=== PATIENT | male | born 1935 | race Caucasian/White ===

== ENCOUNTER 2017-01-15 08:14 | Emergency (ER) | payer MEDICARE, BC ==
[2017-01-15] MEDS ORDERED: Sodium Chloride 0.9% 10 ML Syringe FLUSH PRN (08:20)
--- NOTE | 2017-01-15 09:10 | EDM.PDOC ---
ED HPI RENAL/ - General Chief Complaint: Abdominal Pain Stated Complaint: [facility] Time Seen by Provider: 01/15/17 08:20 Source of Information: Reports: Patient, EMS History Limitations: Reports: No limitations - History of Present Illness INITIAL COMMENTS - FREE TEXT/NARRATIVE: The patient presents with left flank pain. He says this started early this morning and it went away for a little while and came back before arrival. He has no fever, chills, cough, congestion, runny nose, chest pain, shortness of breath, abdominal pain, nausea and vomiting. He has no dysuria or hematuria. Timing/Duration: Reports: Hour(s): Location: Reports: flank (Left) Quality: Reports: stabbing Severity: moderate Associated Symptoms: Reports: no other symptoms - Related Data Allergies/ADRs: Allergies Allergy/AdvReac Type Severity Reaction Status Date / Time No Known Allergies Allergy Verified 01/15/17 08:24 Home Meds: Home Meds Allopurinol [Zyloprim] 100 mg PO BEDTIME 07/12/14 [History] Aspirin [Adult Low Dose Aspirin EC] 81 tab PO DAILY 07/12/14 [History] Cyanocobalamin (Vitamin B12) [Vitamin B12] 1,000 mg PO DAILY 07/12/14 [History] Furosemide [Lasix] 80 mg PO DAILY 07/12/14 [History] Lisinopril 40 mg PO DAILY 07/12/14 [History] Multivitamin [Multivitamins] 1 cap PO DAILY 07/12/14 [History] Simvastatin [Zocor] 40 mg PO BEDTIME 07/12/14 [History] Tamsulosin [Flomax] 0.4 mg PO DAILY 07/12/14 [History] Acetaminophen 500 mg PO Q6H PRN 08/03/16 [History] Carvedilol [Coreg] 6.25 mg PO BID 08/03/16 [History] Cholecalciferol (Vitamin D3) [Vitamin D3] 2,000 units PO DAILY 08/03/16 [History ] Digoxin 125 mcg PO MOWEFR 08/03/16 [History] Finasteride 5 mg PO DAILY 08/03/16 [History] Glucosamine [Glucosamine Sulfate] 500 mg PO DAILY 08/03/16 [History] Lutein/Minerals/Vit A,C & E [Ocuvite] 1 tab PO DAILY 08/03/16 [History] Nitroglycerin [Nitrostat] 0.4 mg SL Q5M PRN 08/03/16 [History] Furosemide 40 mg PO PCDINNER 01/15/17 [History] Past Medical History HEENT History: Reports: Hard of hearing Cardiovascular History: Reports: Automatic implantable cardioverter defibrillators, Bypass, High cholesterol, Hypertension, Pacemaker Other Cardiovascular History: quad bypass 2002 Respiratory History: Reports: Sleep apnea Other Respiratory History: does not wear a CPAP - Past Surgical History GI Surgical History: Reports: Appendectomy Musculoskeletal Surgical History: Reports: Knee replacement, Shoulder surgery Social & Family History - Family History Cardiac: Reports: [place] Oncologic: Reports: Breast - Tobacco Use Smoking Status *Q: Never Smoker Second Hand Smoke Exposure: No - Caffeine Use Caffeine Use: Reports: Coffee - Alcohol Use Days Per Week of Alcohol Use: 0 - Recreational Drug Use Recreational Drug Use: No ED ROS GENERAL - Review of Systems Review Of Systems: See Below Constitutional: Reports: no symptoms HEENT: Reports: No symptoms Respiratory: Reports: no symptoms Cardiovascular: Reports: No symptoms Endocrine: Reports: no symptoms GI/Abdominal: Reports: No symptoms : Reports: flank pain (Left) Musculoskeletal: Reports: no symptoms Skin: Reports: no symptoms ED EXAM, RENAL/ - Physical Exam Exam: See Below Exam Limited By: No limitations General Appearance: alert, no apparent distress Ears: normal external exam Nose: normal inspection Head: atraumatic, normocephalic Neck: normal inspection Respiratory/Chest: no respiratory distress, lungs clear, normal breath sounds Cardiovascular: regular rate, rhythm, no edema, no murmur GI/Abdominal: soft, non tender, no organomegaly, no mass Back Exam: CVA tenderness (L) Extremities: normal inspection Course - Vital Signs Last Recorded V/S: Last Vital Signs Temp 97.6 F 01/15/17 08:30 Pulse 75 01/15/17 08:30 Resp 14 01/15/17 08:30 BP 116/75 01/15/17 08:30 Pulse Ox 98 01/15/17 08:30 - Orders/Labs/Meds Orders: Active Orders 24 hr Category Date Time Status Peripheral IV Care [RC] . DIRECTED Care 01/15/17 08:21 Active Sodium Chloride 0.9% [Saline Flush] Med 01/15/17 08:20 Active 10 ml FLUSH ASDIRECTED PRN ED Antiemetic Medication Reflex [OM.PC] Stat Oth 01/15/17 08:20 Ordered Peripheral IV Insertion Adult [OM.PC] Stat Oth 01/15/17 08:20 Ordered Medication Orders Sodium Chloride (Saline Flush) 10 ml FLUSH ASDIRECTED PRN PRN Reason: Keep Vein Open Last Admin: 01/15/17 09:21 Dose: 10 ml Labs: Laboratory Tests 01/15/17 01/15/17 01/15/17 Range/Units 08:25 08:25 09:20 WBC 5.85 (4.23-9.07) K/mm3 RBC 4.62 L (4.63-6.08) M/mm3 Hgb 14.5 (13.7-17.5) gm/L Hct 44.2 (40.1-51.0) % MCV 95.7 H (79.0-92.2) fl MCH 31.4 (25.7-32.2) pg MCHC 32.8 (32.2-35.5) g/dl RDW Std Deviation 50.7 H (35.1-43.9) fL Plt Count 128 L (163-337) K/mm3 MPV 10.4 (9.4-12.3) fl Neut % (Auto) 57.7 (34.0-67.9) % Lymph % (Auto) 30.6 (21.8-53.1) % Dale % (Auto) 8.0 (5.3-12.2) % Eos % (Auto) 3.4 (0.8-7.0) Baso % (Auto) 0.3 (0.1-1.2) % Neut # 3.37 (1.78-5.38) K/mm3 Lymph # 1.79 (1.32-3.57) K/mm3 Dale # 0.47 (0.30-0.82) K/mm3 Eos # 0.20 (0.04-0.54) K/mm3 Baso # 0.02 (0.01-0.08) K/mm3 Sodium 140 (136-145) mEq/L Potassium 3.7 (3.5-5.1) mEq/L Chloride 99 (98-107) mEq/L Carbon Dioxide 32 (21-32) mEq/L Anion Gap 12.7 (5-15) BUN 40 H (7-18) mg/dL Creatinine 2.0 H (0.7-1.3) mg/dL Est Cr Clr Drug Dosing TNP Estimated GFR (MDRD) 32 (>60) mL/min BUN/Creatinine Ratio 20.0 H (14-18) Glucose 134 H (83-115) mg/dL Calcium 10.1 (8.5-10.1) mg/dL Total Bilirubin 1.5 H (0.2-1.0) mg/dL AST 30 (15-37) U/L ALT 36 (16-63) U/L Alkaline Phosphatase 74 (46-116) U/L Total Protein 7.3 (6.4-8.2) g/dl Albumin 3.8 (3.4-5.0) g/dl Globulin 3.5 gm/dL Albumin/Globulin Ratio 1.1 (1-2) Lipase 149 (73-393) U/L Urine Color Light yellow (Yellow) Urine Appearance Clear (Clear) Urine pH 7.0 (5.0-8.0) Ur Specific [place] 1.020 (1.005-1.030) Urine Protein Negative (Negative) Urine Glucose (UA) Negative (Negative) Urine Ketones Negative (Negative) Urine Occult Blood Negative (Negative) Urine Nitrite Negative (Negative) Urine Bilirubin Negative (Negative) Urine Urobilinogen 0.2 (0.2-1.0) Ur Leukocyte Esterase Negative (Negative) Urine RBC Not seen (0-5) /hpf Urine WBC Not seen (0-5) /hpf Ur Epithelial Cells Not seen (0-5) /hpf Urine Bacteria Not seen (FEW) /hpf Urine Mucus Not Reportable Meds: Medications Generic Name Dose Route Start Last Admin Trade Name Freq PRN Reason Stop Dose Admin Sodium Chloride 10 ml 01/15/17 08:20 01/15/17 09:21 Saline Flush FLUSH 10 ml ASDIRECTED PRN Administration Keep Vein Open - Re-Assessments/Exams Free Text/Narrative Re-Assessment/Exam: 01/15/17 09:09 I ordered an IV saline lock, labs, UA and CT of abdomen and pelvis. 01/15/17 09:45 His CBC was negative. His creatinine is elevated at 2.0. His baseline appears to be 1.6. His glucose was elevated at 134. His lipase was normal. His UA shows no UTI. His CT shows a cyst within the right kidney. No renal calculi, ureteral dilatation or ureteral stone is seen. He is feeling better. It appears movement makes this worse. I feel this may be musculoskeletal. I talked with Vanessa Goodwin and she will refill his lasix and she wants him to stop the zaroxolyn and continue with the lasix. She will fax in an order for the lasix. He has something for pain at home. Departure - Departure Time of Disposition: 10:00 Disposition: Home, Self-Care 01 Condition: good Clinical Impression: Left flank pain Referrals: Vanessa Goodwin PA [Primary Care Provider] - (Follow up next Sunday the ) Forms: ED Department Discharge Additional Instructions: Stop the Zaroxolyn. Take the rest of your medication as prescribed. Follow up with Vanessa next Sunday at the same time. Please return if you are worse. - My Orders Last 24 Hours: My Active Orders 01/15/17 08:20 Sodium Chloride 0.9% [Saline Flush] 10 ml FLUSH ASDIRECTED PRN ED Antiemetic Medication Reflex [OM.PC] Stat Peripheral IV Insertion Adult [OM.PC] Stat 01/15/17 08:21 Peripheral IV Care [RC] . DIRECTED - Assessment/Plan Last 24 Hours: My Active Orders 01/15/17 08:20 Sodium Chloride 0.9% [Saline Flush] 10 ml FLUSH ASDIRECTED PRN ED Antiemetic Medication Reflex [OM.PC] Stat Peripheral IV Insertion Adult [OM.PC] Stat 01/15/17 08:21 Peripheral IV Care [RC] . DIRECTED
--- NOTE | 2017-01-15 09:22 | CT ---
CT abdomen and pelvis Technique: Multiple axial sections were obtained from above the kidneys inferiorly through the pubic symphysis. Intravenous and oral contrast not utilized. Study has been performed as a ureteral stone protocol. Comparison: Previous CT abdomen and pelvis exam of 07/12/14 is available. Findings: Small hyperdense cyst noted within the upper right kidney measuring 1.2 cm. This is believed to be incidental. Larger cyst noted inferiorly within the right kidney which appears simple and measures 1.9 cm. Kidneys show no abnormal calcifications. No ureteral dilatation or ureteral calculi are seen. No bladder calculi are seen. Visualized lung bases show mild interstitial fibrosis. Liver shows no focal parenchymal abnormality. Small hiatal hernia is seen. Spleen appears within normal limits. Adrenal glands show no nodule. Pancreas is within normal limits. Aorta shows atherosclerotic change and ectasia with maximum AP dimension of 2.5 cm. Ectasia of the common iliac arteries also noted with atherosclerotic calcification. No retroperitoneal adenopathy or mesenteric abnormalities are seen. No pelvic mass or adenopathy is seen. Small fat-containing right inguinal hernia is incidentally noted. Bone window settings were reviewed which show diffuse disc space narrowing and vacuum phenomena throughout the spine as well as degenerative endplate spurring and degenerative apophyseal change. Impression: 1. Cysts within the right kidney as described above. No renal calculi, ureteral dilatation or ureteral stone is seen. 2. Other findings felt to be incidental as described above. Diagnostic code #2
[2017-01-15 10:26] VITALS: BP 115/71
== END 2017-01-15 10:25 | disposition home or self-care (01) ==
LOC: SUPCPDRO 08:14 → JD.ED 08:14
DX: R10.9 Unspecified abdominal pain (principal); Z79.82 Long term (current) use of aspirin; Z79.899 Other long term (current) drug therapy; Z95.810 Presence of automatic (implantable) cardiac defibrillator; I10 Essential (primary) hypertension; E78.00 Pure hypercholesterolemia, unspecified; N28.1 Cyst of kidney, acquired
CPT/HCPCS: 36415; 74176; 80053; 81001; 83690; 85025; 99285; J7050; 99283

== ENCOUNTER 2017-06-15 20:53 | Emergency (ER) | payer MEDICARE, BC ==
[2017-06-15 21:07] VITALS: BP 127/74
--- NOTE | 2017-06-15 21:24 | EDM.PDOC ---
ED HPI GENERAL MEDICAL PROBLEM - General Chief Complaint: ENT Problem Stated Complaint: NOSE BLEED Time Seen by Provider: 06/15/17 21:02 Source of Information: Reports: Patient History Limitations: Reports: No Limitations - History of Present Illness INITIAL COMMENTS - FREE TEXT/NARRATIVE: This is an 81-year-old male. Onset around 2 PM this afternoon with a right-sided nosebleed. He used toilet paper and stuck it up his nose and it seemed to stop. This evening however he pulled the toilet paper out and began to bleed again. He comes to the ER for evaluation. He has toilet paper in his nose presently on the right side he denies any left sided nose bleed. He is on a baby aspirin a day but no other blood thinners. He denies any other acute symptoms. He says he gets nosebleeds maybe 2-3 times in a year. He does use a nasal spray but isn't certain what the name of it is. He does blow his nose a lot he says. - Related Data Allergies Allergy/AdvReac Type Severity Reaction Status Date / Time No Known Allergies Allergy Verified 01/15/17 08:24 Home Meds: Home Meds Allopurinol [Zyloprim] 100 mg PO BEDTIME 07/12/14 [History] Aspirin [Adult Low Dose Aspirin EC] 81 tab PO DAILY 07/12/14 [History] Cyanocobalamin (Vitamin B12) [Vitamin B12] 1,000 mg PO DAILY 07/12/14 [History] Furosemide [Lasix] 80 mg PO DAILY 07/12/14 [History] Lisinopril 40 mg PO DAILY 07/12/14 [History] Multivitamin [Multivitamins] 1 cap PO DAILY 07/12/14 [History] Simvastatin [Zocor] 40 mg PO BEDTIME 07/12/14 [History] Tamsulosin [Flomax] 0.4 mg PO DAILY 07/12/14 [History] Acetaminophen 500 mg PO Q6H PRN 08/03/16 [History] Carvedilol [Coreg] 6.25 mg PO BID 08/03/16 [History] Cholecalciferol (Vitamin D3) [Vitamin D3] 2,000 units PO DAILY 08/03/16 [History ] Digoxin 125 mcg PO MOWEFR 08/03/16 [History] Finasteride 5 mg PO DAILY 08/03/16 [History] Glucosamine [Glucosamine Sulfate] 500 mg PO DAILY 08/03/16 [History] Lutein/Minerals/Vit A,C & E [Ocuvite] 1 tab PO DAILY 08/03/16 [History] Nitroglycerin [Nitrostat] 0.4 mg SL Q5M PRN 08/03/16 [History] Furosemide 40 mg PO PCDINNER 01/15/17 [History] Sacubitril/Valsartan [Entresto 24 mg-26 mg Tablet] 2 tab PO BID 06/15/17 [ History] Past Medical History HEENT History: Reports: Hard of Hearing Cardiovascular History: Reports: Automatic Implantable Cardioverter Defibrillators, Bypass, High Cholesterol, Hypertension, Pacemaker Other Cardiovascular History: quad bypass 2002 Respiratory History: Reports: Sleep Apnea Other Respiratory History: does not wear a CPAP Gastrointestinal History: Reports: Other (See Below) Other Gastrointestinal History: Hx of hernias x2 - both repaired surgically - Infectious Disease History Infectious Disease History: Reports: Chicken Pox - Past Surgical History HEENT Surgical History: Reports: Tonsillectomy, Other (See Below) Musculoskeletal Surgical History: Reports: Knee Replacement, Shoulder Surgery Social & Family History - Family History Cardiac: Reports: [place] Oncologic: Reports: Breast - Tobacco Use Smoking Status *Q: Never Smoker Second Hand Smoke Exposure: No - Caffeine Use Caffeine Use: Reports: Coffee, Tea - Alcohol Use Days Per Week of Alcohol Use: 0 - Recreational Drug Use Recreational Drug Use: No ED ROS ENT - Review of Systems Review Of Systems: See Below Constitutional: Denies: Fever, Chills HEENT: Reports: Nosebleed Respiratory: Reports: No Symptoms Cardiovascular: Reports: No Symptoms Endocrine: Reports: No Symptoms GI/Abdominal: Reports: No Symptoms : Reports: No Symptoms Musculoskeletal: Reports: No Symptoms Skin: Reports: No Symptoms Neurological: Reports: No Symptoms Psychiatric: Reports: No Symptoms Hematologic/Lymphatic: Denies: Easy Bleeding, Easy Bruising ED EXAM, ENT - Physical Exam Exam: See Below Exam Limited By: No Limitations General Appearance: Alert, WD/WN, No Apparent Distress Eye Exam: Bilateral Eye: Normal Inspection Ears: Normal External Exam Nose: Normal Inspection, Other (Looking at the right nasal passage after I gently got the toilet paper out on the septum there appears to be the area of bleed but there is a nice scab and there is no bleeding presently, the left side appears to be without abnormality.). No: Active Bleeding, Dried Blood Mouth/Throat: Normal Inspection, Normal Oropharynx, Other (There is no blood noted in the oropharynx) Head: Normocephalic Neck: Supple Respiratory/Chest: No Respiratory Distress, Lungs Clear, Normal Breath Sounds Cardiovascular: Regular Rate, Rhythm, No Murmur GI/Abdominal: Soft Back: Full Range of Motion Extremities: Normal Inspection, Normal Range of Motion Neurological: Alert, Oriented Psychiatric: Normal Affect, Normal Mood Skin: Warm, Dry Course - Vital Signs Last Recorded V/S: Last Vital Signs Temp 97.5 F 06/15/17 21:05 Pulse 72 06/15/17 21:05 Resp 20 06/15/17 21:05 BP 127/74 06/15/17 21:05 Pulse Ox 99 06/15/17 21:05 - Re-Assessments/Exams Free Text/Narrative Re-Assessment/Exam: 06/15/17 22:21 There is no further nasal bleeding noted. I spoke to the patient about using the Afrin nasal spray and to switch to saline nasal spray to keep the nasal passages moist. Also told him not to rub on his nose or pick on his nose or blow his nose for at least 24 hours otherwise the bleeding will start again. The patient seems to understand. Departure - Departure Time of Disposition: 22:22 Disposition: Home, Self-Care 01 Condition: Good Clinical Impression: Anterior epistaxis - Discharge Information Referrals: Vanessa Goodwin PA [Primary Care Provider] - Forms: ED Department Discharge Additional Instructions: Tomorrow go to [facility] and get some saline nasal spray to keep that nasal passages moist which will help prevent them from bleeding, do not rub pick or blow your nose for 24 hours or the bleeding will start again, recheck with your family doctor next week, return to the ER if needed
== END 2017-06-15 22:31 | disposition home or self-care (01) ==
LOC: JD.ED 20:53
DX: R04.0 Epistaxis (principal); I10 Essential (primary) hypertension; E78.00 Pure hypercholesterolemia, unspecified; G47.30 Sleep apnea, unspecified; Z95.810 Presence of automatic (implantable) cardiac defibrillator; Z98.890 Other specified postprocedural states; Z96.659 Presence of unspecified artificial knee joint; Z79.82 Long term (current) use of aspirin; Z79.899 Other long term (current) drug therapy
CPT/HCPCS: 99282; 99283

== ENCOUNTER 2017-07-08 07:37 | Emergency (ER) | payer MEDICARE, BC ==
[2017-07-08 07:48] VITALS: BP 124/80
--- NOTE | 2017-07-08 07:52 | EDM.PDOC ---
ED HPI GENERAL MEDICAL PROBLEM - General Chief Complaint: Abdominal Pain Stated Complaint: ABDOMINAL PAIN Time Seen by Provider: 07/08/17 07:52 Source of Information: Reports: Patient History Limitations: Reports: No Limitations - History of Present Illness INITIAL COMMENTS - FREE TEXT/NARRATIVE: 81-year-old male attends the ED with a palpable swelling in his right inguinal area. Patient has had previous right inguinal surgery many years ago. He felt a definitive lump in this area but was able to get it to pop back in lying down and massaging the area this morning. He first appreciated last night and it went away but in the shower this morning it came back. At present he has no pain. Onset: Sudden Onset Date: 07/07/17 (Noted again this morning while he was in the shower.) Duration: Hour(s): Location: Reports: Abdomen (Right lower quadrant of the abdomen.) Quality: Reports: Ache, Burning, Pressure, Sharp Severity: Moderate Improves with: Reports: Other (Pain is gone at the time of my assessment. 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: Reports: Other (see below) Right Groin Pain Score (Numeric/FACES): 3 - Related Data Allergies Allergy/AdvReac Type Severity Reaction Status Date / Time No Known Allergies Allergy Verified 07/08/17 07:48 Home Meds: Home Meds Allopurinol [Zyloprim] 100 mg PO BEDTIME 07/12/14 [History] Aspirin [Adult Low Dose Aspirin EC] 81 tab PO DAILY 07/12/14 [History] Cyanocobalamin (Vitamin B12) [Vitamin B12] 1,000 mg PO DAILY 07/12/14 [History] Furosemide [Lasix] 80 mg PO DAILY 07/12/14 [History] Lisinopril 40 mg PO DAILY 07/12/14 [History] Multivitamin [Multivitamins] 1 cap PO DAILY 07/12/14 [History] Simvastatin [Zocor] 40 mg PO BEDTIME 07/12/14 [History] Tamsulosin [Flomax] 0.4 mg PO DAILY 07/12/14 [History] Acetaminophen 500 mg PO Q6H PRN 08/03/16 [History] Carvedilol [Coreg] 6.25 mg PO BID 08/03/16 [History] Cholecalciferol (Vitamin D3) [Vitamin D3] 2,000 units PO DAILY 08/03/16 [History ] Digoxin 125 mcg PO MOWEFR 08/03/16 [History] Finasteride 5 mg PO DAILY 08/03/16 [History] Glucosamine [Glucosamine Sulfate] 500 mg PO DAILY 08/03/16 [History] Lutein/Minerals/Vit A,C & E [Ocuvite] 1 tab PO DAILY 08/03/16 [History] Nitroglycerin [Nitrostat] 0.4 mg SL Q5M PRN 08/03/16 [History] Furosemide 40 mg PO PCDINNER 01/15/17 [History] Sacubitril/Valsartan [Entresto 24 mg-26 mg Tablet] 2 tab PO BID 06/15/17 [ History] Past Medical History HEENT History: Reports: Hard of Hearing Cardiovascular History: Reports: Automatic Implantable Cardioverter Defibrillators, Bypass, High Cholesterol, Hypertension, Pacemaker Other Cardiovascular History: quad bypass 2002 Respiratory History: Reports: Sleep Apnea Other Respiratory History: does not wear a CPAP Gastrointestinal History: Reports: Other (See Below) Other Gastrointestinal History: Hx of hernias x2 - both repaired surgically - Infectious Disease History Infectious Disease History: Reports: Chicken Pox - Past Surgical History HEENT Surgical History: Reports: Tonsillectomy GI Surgical History: Reports: Hernia, Inguinal Musculoskeletal Surgical History: Reports: Knee Replacement, Shoulder Surgery Social & Family History - Family History Cardiac: Reports: [place] Oncologic: Reports: Breast - Tobacco Use Smoking Status *Q: Never Smoker Second Hand Smoke Exposure: No - Caffeine Use Caffeine Use: Reports: None - Alcohol Use Days Per Week of Alcohol Use: 0 - Recreational Drug Use Recreational Drug Use: No - Living Situation & Occupation Living situation: Reports: Occupation: Retired ED ROS GENERAL - Review of Systems Review Of Systems: See Below Constitutional: Reports: Fatigue. Denies: Fever, Chills, Malaise, Weakness, Weight Loss HEENT: Reports: Hearing Loss Respiratory: Reports: No Symptoms (Mild) Cardiovascular: Reports: Blood Pressure Problem, Dyspnea on Exertion ( harvesting for bypass surgery 14 years ago), Edema (Controlled with medications left lower extremity chronically due to previous venous), Palpitations. Denies : Chest Pain, Claudication, Lightheadedness, Orthopnea Endocrine: Reports: Fatigue (Occasionally aware of palpitations) GI/Abdominal: Reports: Constipation : Reports: Frequency, Other (Usually nocturia 3.) Musculoskeletal: Reports: Other (Both knees have been replaced. He does have pain in his low back hips and neck. These had shoulder surgery bilaterally.) Skin: Reports: No Symptoms Neurological: Reports: Confusion (Intermittent problems with confusion and early dementia changes.), Other Psychiatric: Reports: Confusion Hematologic/Lymphatic: Reports: Easy Bruising Immunologic: Reports: No Symptoms ED EXAM, GI/ABD - Physical Exam Exam: See Below Exam Limited By: No Limitations General Appearance: Alert, WD/WN, No Apparent Distress Eyes: Bilateral: Normal Appearance Throat/Mouth: Normal Inspection, Normal Lips, Normal Oropharynx Head: Atraumatic, Normocephalic Neck: Normal Inspection, Limited Range of Motion, Tender Lateral. No: Full Range of Motion (Crepitus on lateral rotation.) Respiratory/Chest: No Respiratory Distress, Normal Breath Sounds, Decreased Breath Sounds. No: Respiratory Distress (Decreased breath sounds the lower 25% of lung littlejohn posteriorly.), Rales, Rhonchi, Wheezing Cardiovascular: No Gallop, No Murmur, No Rub, Irregularly Irregular, Other (Well -healed midline sternotomy incision. Pacemaker left upper anterior chest.) GI/Abdominal Exam: Normal Bowel Sounds, Soft, Non-Tender, No Organomegaly, Other (No palpable hernia in the supine position. On standing and invagination of the scrotum bilaterally there is a positive mild cough impulse on the left side on the right there is a palpable hernia that only comes down when he coughs.) (Male) Exam: Hernia (Right inguinal but has been reduced.). No: Scrotal Swelling, Scrotum Tenderness (L), Scrotum Tenderness (R), Suprapubic Fullness, Testicular Mass Back Exam: Normal Inspection, Full Range of Motion, Decreased Range of Motion. No: CVA Tenderness (L), CVA Tenderness (R) Extremities: Other (Well-healed incisions over both anterior knees compatible with total knee replacements. Limited range of motion of both hips with loss of 10 ) Neurological: Alert, Oriented (internal and external rotation bilaterally.), CN II-XII Intact, Normal Cognition Psychiatric: Normal Affect, Normal Mood Skin Exam: Warm, Dry, Intact, Normal Color, No Rash Course - Vital Signs Last Recorded V/S: Last Vital Signs Temp 36.3 C 07/08/17 07:45 Pulse 65 07/08/17 07:45 Resp 16 07/08/17 07:45 BP 124/80 07/08/17 07:45 Pulse Ox 93 L 07/08/17 07:45 - Radiology Interpretation Free Text/Narrative:: 81-year-old male presents the ED with a swelling in his right inguinal area that came last night and he was able to reduce it and notices again in the shower this morning with pain in the area. He did lay down on the bed after the shower and massage the area and he made the pain go away. This suggests that he had a recurrence of his right inguinal hernia and reduced it himself. On examination there is a positive cough impulse bilaterally worse on the right as compared to the left suggesting a recurrence of his right inguinal hernia. It is not an emergency at this time therefore he will follow-up with his normal care provider to arrange for definitive surgical management. He has multiple comorbid illnesses that may make it possible to be have surgery carried out in [place] versus her. But I will leave this up to his care provider. Departure - Departure Time of Disposition: 08:09 Disposition: Home, Self-Care 01 Condition: Fair Clinical Impression: Inguinal hernia, right - Discharge Information Instructions: Inguinal Hernia, Adult, [id number] Forms: ED Department Discharge Additional Instructions: Evaluation the emergency room today in regards to right inguinal hernia recurrence. By history you have appreciated swelling in this area last evening and again this morning while in the shower. By laying down and massaging the area were able to reduce the hernia and the pain has gone away. On my assessment there is evidence of a recurrence of right inguinal hernia. You have had this repaired once in the past. It therefore needs to be repaired again in the near future. Follow-up with ENT shama early next week to make arrangements for definitive surgical repair with a surgeon either Dr. Glasgow locally or surgeon in [place]. You have multiple comorbid illnesses such as coronary artery disease with previous bypass. The only reason to return to the ED 0 the hernia comes back out and will not reduce after you lay down and massage the area. May benefit from a hernia belt which can be brought through most drug stores until definitive surgery can be performed.
== END 2017-07-08 08:20 | disposition home or self-care (01) ==
LOC: JD.ED 07:37
DX: K40.90 Unilateral inguinal hernia, without obstruction or gangrene, not specified as recurrent (principal); Z79.82 Long term (current) use of aspirin; Z79.899 Other long term (current) drug therapy; Z98.890 Other specified postprocedural states; Z96.659 Presence of unspecified artificial knee joint
CPT/HCPCS: 99283; 99284

== ENCOUNTER 2017-09-01 09:17 | Emergency (ER) | payer MEDICARE, BC ==
[2017-09-01 09:29] VITALS: BP 134/85
--- NOTE | 2017-09-01 10:10 | EDM.PDOC ---
ED HPI GENERAL MEDICAL PROBLEM - General Chief Complaint: Abdominal Pain Stated Complaint: HX OF HERNIA/PAIN OFF AND ON Time Seen by Provider: 09/01/17 09:30 Source of Information: Reports: Patient, RN Notes Reviewed History Limitations: Reports: No Limitations - History of Present Illness INITIAL COMMENTS - FREE TEXT/NARRATIVE: The patient states that he underwent a right inguinal herniorrhaphy around 10 years ago (he does not recall where). He states that he has been experiencing pain and a bulge to his right inguinal area on and off for the past 1.5 months. He has been able to reduce the bulge if he lies on his back and presses on the area. He states that he was seen by a surgeon in [place] (he does not recall the surgeon's name) about one month ago, and states that the surgeon recommended no surgery, primarily due to the patient's age and comorbidities. The patient states that he booked a bus trip to [place], [place], about a month ago, scheduled to depart this coming 09/04/2017. He states that he had another episode of right inguinal pain last night around 22:00, that he was able to reduce, however, he now presents to the ED because he is concerned about going on the bus trip on Sunday. While the patient is asymptomatic at this time, he is requesting a medical note stating that he should not go on the bus trip, so that he can get his money back. The patient's PCP is Vanessa Goodwin. Right Lower Abdomen Pain Score (Numeric/FACES): 6 - Related Data Allergies Allergy/AdvReac Type Severity Reaction Status Date / Time No Known Allergies Allergy Verified 07/08/17 07:48 Home Meds: Home Meds Allopurinol [Zyloprim] 100 mg PO BEDTIME 07/12/14 [History] Aspirin [Adult Low Dose Aspirin EC] 81 tab PO DAILY 07/12/14 [History] Cyanocobalamin (Vitamin B12) [Vitamin B12] 1,000 mg PO DAILY 07/12/14 [History] Furosemide [Lasix] 80 mg PO DAILY 07/12/14 [History] Lisinopril 40 mg PO DAILY 07/12/14 [History] Multivitamin [Multivitamins] 1 cap PO DAILY 07/12/14 [History] Simvastatin [Zocor] 40 mg PO BEDTIME 07/12/14 [History] Tamsulosin [Flomax] 0.4 mg PO DAILY 07/12/14 [History] Acetaminophen 500 mg PO Q6H PRN 08/03/16 [History] Carvedilol [Coreg] 6.25 mg PO BID 08/03/16 [History] Cholecalciferol (Vitamin D3) [Vitamin D3] 2,000 units PO DAILY 08/03/16 [History ] Digoxin 125 mcg PO MOWEFR 08/03/16 [History] Finasteride 5 mg PO DAILY 08/03/16 [History] Glucosamine [Glucosamine Sulfate] 500 mg PO DAILY 08/03/16 [History] Lutein/Minerals/Vit A,C & E [Ocuvite] 1 tab PO DAILY 08/03/16 [History] Nitroglycerin [Nitrostat] 0.4 mg SL Q5M PRN 08/03/16 [History] Furosemide 40 mg PO PCDINNER 01/15/17 [History] Sacubitril/Valsartan [Entresto 24 mg-26 mg Tablet] 2 tab PO BID 06/15/17 [ History] Past Medical History HEENT History: Reports: Hard of Hearing Cardiovascular History: Reports: CAD, Heart Failure, High Cholesterol, Hypertension Respiratory History: Reports: Sleep Apnea (does not wear a CPAP) Genitourinary History: Reports: BPH, Renal Calculus Musculoskeletal History: Reports: Gout (suspected, not confirmed) - Infectious Disease History Infectious Disease History: Reports: Chicken Pox - Past Surgical History HEENT Surgical History: Reports: Cataract Surgery (bilateral), Oral Surgery ( [place] teeth extraction), Tonsillectomy Cardiovascular Surgical History: Reports: Coronary Artery Bypass (x 4 vessel, 2002), Pacer GI Surgical History: Reports: Appendectomy, Hernia, Inguinal (bilateral) Musculoskeletal Surgical History: Reports: Knee Replacement (bilateral), Shoulder Surgery (right, replacement) Social & Family History - Family History Cardiac: Reports: [place] Oncologic: Reports: Breast - Tobacco Use Smoking Status *Q: Never Smoker Second Hand Smoke Exposure: No - Caffeine Use Caffeine Use: Reports: None - Alcohol Use Alcohol Use History: Yes Alcohol Use Frequency: Rarely - Recreational Drug Use Recreational Drug Use: No - Living Situation & Occupation Living situation: Reports: , Alone Occupation: Retired ED ROS GENERAL - Review of Systems Review Of Systems: See Below Constitutional: Reports: No Symptoms HEENT: Reports: No Symptoms Respiratory: Reports: No Symptoms Cardiovascular: Reports: No Symptoms Endocrine: Reports: No Symptoms GI/Abdominal: Reports: No Symptoms : Reports: No Symptoms Musculoskeletal: Reports: No Symptoms Skin: Reports: No Symptoms Neurological: Reports: No Symptoms Psychiatric: Reports: No Symptoms Hematologic/Lymphatic: Reports: No Symptoms Immunologic: Reports: No Symptoms ED EXAM, GI/ABD - Physical Exam Exam: See Below Exam Limited By: No Limitations General Appearance: Alert, WD/WN, No Apparent Distress Eyes: Bilateral: Normal Appearance, EOMI Ears: Normal External Exam, Hearing Grossly Normal Nose: Normal Inspection, No Blood Throat/Mouth: Normal Inspection, Normal Lips, Normal Voice, No Airway Compromise Head: Atraumatic, Normocephalic Neck: Normal Inspection, Full Range of Motion Respiratory/Chest: No Respiratory Distress, Lungs Clear, Normal Breath Sounds, No Accessory Muscle Use Cardiovascular: Normal Peripheral Pulses, Regular Rate, Rhythm, No Gallop, No JVD, No Murmur, No Rub GI/Abdominal Exam: Normal Bowel Sounds, Soft, Non-Tender, No Organomegaly, No Distention, No Abnormal Bruit, No Mass, Pelvis Stable (Male) Exam: No Hernia, Normal Inspection Rectal (Males) Exam: Deferred Back Exam: Normal Inspection, Full Range of Motion, NT Extremities: Normal Inspection, Normal Range of Motion, No Pedal Edema, Normal Capillary Refill Neurological: Alert, Oriented, Normal Cognition, No Motor/Sensory Deficits Psychiatric: Normal Affect Skin Exam: Warm, Dry, Intact, Normal Color, No Rash Course - Vital Signs Last Recorded V/S: Last Vital Signs Temp 35.6 C 09/01/17 09:23 Pulse 72 09/01/17 09:23 Resp 18 09/01/17 09:23 BP 134/85 09/01/17 09:23 Pulse Ox 96 09/01/17 09:23 - Re-Assessments/Exams Free Text/Narrative Re-Assessment/Exam: 09/01/17 10:07 The patient presents with a complaint of a recurring right inguinal hernia, and while he states that he was seen by a surgeon in [place] about a month ago, who recommended no surgery, the patient is concerned about going on an upcoming bus trip to [place], [place], and would like me to write him a note stating that it is medically contraindicated, so that he can get his money back. Unfortunately, I don't believe this would be ethical unless I were convinced that there is a significant risk of the patient developing an incarcerated hernia while on that trip. As the patient is currently asymptomatic, there is no way for me to make that determination. The case was discussed with Dr. Rollins at 10:04. He will come to evaluate the patient, and if convinced that there is a significant hernia, he is willing to write the patient such a medical note. 09/01/17 10:47 The patient was evaluated by Dr. Rollins, who has written a medical note for the patient. I will discharge the patient home. Departure - Departure Time of Disposition: 10:47 Disposition: Home, Self-Care 01 Condition: Good Clinical Impression: Inguinal hernia, right - Discharge Information Instructions: Inguinal Hernia, Adult, [id number] Referrals: Vanessa Goodwin PA [Primary Care Provider] - Erasto Rollins MD [Physician] - Forms: ED Department Discharge Additional Instructions: You were seen in the emergency room, requesting a medical note to not go on a trip to [place], [place]. You were evaluated by the Surgeon Dr. Rollins, who provided a medical note for you. Follow-up with Dr. Rollins at the next available appointment for further treatment. If any other problems, please do not hesitate to return to the ER.
--- NOTE | 2017-09-03 07:40 | CONS ---
CONSULTING PHYSICIAN: Erasto Rollins DATE OF CONSULTATION: 09/01/2017 Thank you for asking me to see this nice gentleman in consultation. As you know, he is an 82-year-old gentleman who has a problem with a recurrent right inguinal hernia. The hernia was repaired approximately 10 years ago and in the past month or so, he has had increasing episodes of discomfort, swelling, and requiring him lying down and reducing the hernia. Additionally, he has reservations for travelling to [place], [place] in the next 2 weeks and with the onset of these symptoms, he feels, he probably should not go to a strange place where he is not knowledgeable as far as the access to medical care. He has been seen in the past for this problem and was seen in [place] by surgeon who noted that his cardiac ejection fraction is probably somewhere around 30% and said that he should not have the hernia repaired. But presently now, since the symptoms are getting more severe and it is beginning to interfere with his ability to be active, etc., he would like to have it repaired. He will be seeing his brand manager in [place] in the next couple of 2-3 weeks and I asked him at that time to ask for a referral to a surgeon in [place]. His other option is to make an appointment either with [facility] or the [facility] here for evaluation. My feeling is that with 30% ejection fraction would be satisfactory for a repair under local, since he is otherwise an active man. He exercises fine on his exercise cycle and tries to stay active. Additionally, his brand manager will be able to assess this and prepare him for surgery, if he were to have it there. He has an appointment for that. I also wrote a note to whom it may concern that he needs to not travel at this point since the symptoms are coming closer and the events are coming closer to each other and that he should look into having this hernia repaired within the next 2-3 weeks. He therefore will not be able to travel to [place] and I gave him a note to that effect so that he might attempt to get his reservation money back. He will follow up with his brand manager in [place] or make appointments with a surgeon at one of our clinics here in [facility] and I really put a lot of pressure on him to get this done soon because he may wind up with that stuck out and then it becomes an emergent procedure. [facility] /[id number]
== END 2017-09-01 10:55 | disposition home or self-care (01) ==
LOC: JD.ED 09:17
DX: K40.90 Unilateral inguinal hernia, without obstruction or gangrene, not specified as recurrent (principal); I11.0 Hypertensive heart disease with heart failure; I50.9 Heart failure, unspecified; I25.10 Atherosclerotic heart disease of native coronary artery without angina pectoris; Z95.1 Presence of aortocoronary bypass graft; Z90.49 Acquired absence of other specified parts of digestive tract; Z98.890 Other specified postprocedural states; Z79.82 Long term (current) use of aspirin; Z79.899 Other long term (current) drug therapy
CPT/HCPCS: 99283; 99284

== ENCOUNTER 2017-10-03 16:33 | Emergency (ER) | payer MEDICARE, BC ==
[2017-10-03 16:48] VITALS: BP 130/62
[2017-10-03] MEDS ORDERED: Sodium Chloride 0.9% 500 ML IV ONE (20:12)
[2017-10-03] MEDS ORDERED: Sodium Chloride 0.9% 10 ML Syringe FLUSH PRN (20:12)
[2017-10-03] MEDS ORDERED: Diatrizoate Meglumine/Diatrizoate Sodium 37% 120 ML Bottle PO ONE (20:17)
[2017-10-03] MEDS ORDERED: Sodium Chloride 0.9% 10 ML Syringe FLUSH ONE (20:17)
[2017-10-03] MEDS ORDERED: Iopamidol 612 MG/ML 100 ML Bottle IVPUSH ONE (20:17)
--- NOTE | 2017-10-03 20:55 | CT ---
CT abdomen and pelvis Technique: Multiple axial sections were obtained from above the dome of the diaphragm inferiorly through the pubic symphysis. Intravenous and oral contrast was utilized. Comparison: Study compared to most recent CT study performed as a non-contrast exam dated 01/15/17. Findings: Small portion of the visualized lung bases shows slight fibrosis and scarring. Liver shows a low density lesion within the posterior right lobe measuring approximately 2.8 cm. This most likely represents a hemangioma as the Hounsfield unit measurements are not of a cyst. This is seen on prior CT studies but is less well appreciated on previous studies most likely due to differences in enhancement timing. Small amount of gastroesophageal reflux of contrast is seen within the esophagus. Spleen appears within normal limits. Adrenal glands show no nodule. Kidneys show symmetric contrast enhancement. Slightly hyperdense lesio is n noted off the upper right kidney measuring about 1.1 cm in size which is stable from prior studies. Cyst is identified within the more inferior within the right kidney measuring 2.0 cm. Kidneys are otherwise unremarkable in appearance. No discrete abnormality is seen within the pancreas. Gallbladder shows no calcified gallstones. Ectasia is noted of the aorta and iliac vessels. This ectasia appears fairly stable from prior exam. Atherosclerotic calcification is also seen within the aortoiliac vessels. No retroperitoneal adenopathy or mesenteric abnormalities are seen. No pelvic mass or adenopathy is identified. Delayed images shows contrast excretion from both kidneys with lack of contrast seen within the bladder most likely representing hydration state. Scattered degenerative change is seen throughout the spine. No free fluid or inflammatory change is seen. No bowel dilatation is seen. Impression: 1. Findings which are felt to be incidental as noted above. Nothing acute is appreciated. Diagnostic code #2
--- NOTE | 2017-10-03 21:33 | EDM.PDOC ---
ED HPI GENERAL MEDICAL PROBLEM - General Chief Complaint: Gastrointestinal Problem Stated Complaint: [facility] Time Seen by Provider: 10/03/17 17:00 Source of Information: Reports: Patient History Limitations: Reports: No Limitations - History of Present Illness INITIAL COMMENTS - FREE TEXT/NARRATIVE: 82-year-old male presents for evaluation treatment of chills and nausea. Patient reports that the chills and nausea started about an hour prior to arrival in the ER. He was given 4 mg ODT by ambulance and states this is now significantly helped with his nausea. He questions if he has had some lightheadedness as well. He denies any chest pain, shortness of breath, abdominal pain, headaches, body aches, cough, vomiting, syncope, diarrhea or fevers. Patient reports that he has cardiac issues and has a pacemaker. Sees cardiology in [place]. Treatments HEALTH INFORMATION CLERK: Reports: Other (see below) Other Treatments HEALTH INFORMATION CLERK: zofran ODT - Related Data Allergies Allergy/AdvReac Type Severity Reaction Status Date / Time No Known Allergies Allergy Verified 10/03/17 16:44 Home Meds: Home Meds Allopurinol [Zyloprim] 100 mg PO BEDTIME 07/12/14 [History] Furosemide [Lasix] 80 mg PO DAILY 07/12/14 [History] Lisinopril 40 mg PO DAILY 07/12/14 [History] Simvastatin [Zocor] 40 mg PO BEDTIME 07/12/14 [History] Tamsulosin [Flomax] 0.4 mg PO DAILY 07/12/14 [History] Carvedilol [Coreg] 6.25 mg PO BID 08/03/16 [History] Digoxin 125 mcg PO MOWEFR 08/03/16 [History] Finasteride 5 mg PO DAILY 08/03/16 [History] Nitroglycerin [Nitrostat] 0.4 mg SL Q5M PRN 08/03/16 [History] Furosemide 40 mg PO PCDINNER 01/15/17 [History] Sacubitril/Valsartan [Entresto 24 mg-26 mg Tablet] 2 tab PO BID 06/15/17 [ History] traMADol [Ultram] 50 mg PO DAILY 10/03/17 [History] Past Medical History HEENT History: Reports: Hard of Hearing Cardiovascular History: Reports: CAD, Heart Failure, High Cholesterol, Hypertension Other Cardiovascular History: quad bypass 2002 Respiratory History: Reports: Sleep Apnea Other Respiratory History: does not wear a CPAP Gastrointestinal History: Reports: Other (See Below) Other Gastrointestinal History: Hx of hernias x2 - both repaired surgically Genitourinary History: Reports: BPH, Renal Calculus Musculoskeletal History: Reports: Gout - Infectious Disease History Infectious Disease History: Reports: Chicken Pox - Past Surgical History HEENT Surgical History: Reports: Cataract Surgery, Oral Surgery, Tonsillectomy Cardiovascular Surgical History: Reports: Coronary Artery Bypass, Pacer GI Surgical History: Reports: Appendectomy, Hernia, Inguinal Musculoskeletal Surgical History: Reports: Knee Replacement, Shoulder Surgery Social & Family History - Family History Cardiac: Reports: [place] Oncologic: Reports: Breast - Tobacco Use Smoking Status *Q: Never Smoker Second Hand Smoke Exposure: No - Caffeine Use Caffeine Use: Reports: Coffee - Alcohol Use Days Per Week of Alcohol Use: 0 - Recreational Drug Use Recreational Drug Use: No - Living Situation & Occupation Living situation: Reports: , Alone Occupation: Retired ED ROS GENERAL - Review of Systems Review Of Systems: See Below Constitutional: Reports: Chills. Denies: Fever Respiratory: Denies: Shortness of Breath, Cough Cardiovascular: Denies: Chest Pain GI/Abdominal: Reports: Nausea. Denies: Abdominal Pain, Diarrhea, Vomiting Skin: Denies: Pruritis Neurological: Denies: Headache, Syncope ED EXAM, GI/ABD - Physical Exam Exam: See Below Exam Limited By: No Limitations General Appearance: Alert, WD/WN, No Apparent Distress Eyes: Bilateral: Normal Appearance Ears: Normal External Exam, Normal Canal, Hearing Grossly Normal, Normal TMs Nose: Normal Inspection Throat/Mouth: Normal Inspection, Normal Voice, No Airway Compromise Neck: Normal Inspection Respiratory/Chest: No Respiratory Distress, Lungs Clear, Normal Breath Sounds Cardiovascular: Normal Peripheral Pulses, Regular Rate, Rhythm, No Murmur GI/Abdominal Exam: Normal Bowel Sounds, Soft, Non-Tender. No: Distended, Guarding, Rebound, Hepatomegaly, Splenomegaly Neurological: Alert, Oriented, Normal Cognition Psychiatric: Normal Affect, Normal Mood Skin Exam: Warm, Dry, Jaundice EKG INTERPRETATION EKG Date: 10/03/17 Time: 17:50 EKG Interpretation Comments: A-V duel paced rhythm at 74 bpm. Reviewed by myself and Dr. Chatman. Course - Vital Signs Last Recorded V/S: Last Vital Signs Temp 37.1 C 10/03/17 16:44 Pulse 73 10/03/17 16:44 Resp 17 10/03/17 16:44 BP 130/62 10/03/17 16:44 Pulse Ox 95 10/03/17 16:44 - Orders/Labs/Meds Orders: Active Orders 24 hr Category Date Time Status Cardiac Monitoring [RC] . DIRECTED Care 10/03/17 16:56 Active EKG Documentation Completion [RC] STAT Care 10/03/17 16:56 Active Peripheral IV Care [RC] . DIRECTED Care 10/03/17 20:12 Active Chest 2V [CR] Stat Exams 10/03/17 16:56 Taken Piperacillin/Tazobactam [Zosyn] 4.5 gm Med 10/03/17 22:14 Ordered Sodium Chloride 0.9% [Normal Saline] 100 ml IV ONETIME Sodium Chloride 0.9% [Saline Flush] Med 10/03/17 20:12 Active 10 ml FLUSH ASDIRECTED PRN Peripheral IV Insertion Adult [OM.PC] Routine Oth 10/03/17 20:12 Ordered Medication Orders Piperacillin Sod/Tazobactam (Sod 4.5 gm/ Sodium Chloride) 100 mls @ 200 mls/hr IV ONETIME ONE Stop: 10/03/17 22:43 Sodium Chloride (Saline Flush) 10 ml FLUSH ASDIRECTED PRN PRN Reason: Keep Vein Open Last Admin: 10/03/17 20:38 Dose: 10 ml Labs: Laboratory Tests 10/03/17 10/03/17 10/03/17 Range/Units 17:30 17:30 17:30 WBC 5.55 (4.23-9.07) K/mm3 RBC 4.15 L (4.63-6.08) M/mm3 Hgb 13.3 L (13.7-17.5) gm/L Hct 41.8 (40.1-51.0) % MCV 100.7 H (79.0-92.2) fl MCH 32.0 (25.7-32.2) pg MCHC 31.8 L (32.2-35.5) g/dl RDW Std Deviation 53.2 H (35.1-43.9) fL Plt Count 114 L (163-337) K/mm3 MPV 10.3 (9.4-12.3) fl Neutrophils % (Manual) 85 H (40-60) % Band Neutrophils % 4 (0-10) % Lymphocytes % (Manual) 6 L (20-40) % Atypical Lymphs % 0 % Monocytes % (Manual) 3 (2-10) % Eosinophils % (Manual) 2 (0.8-7.0) % Basophils % (Manual) 0 L (0.2-1.2) Platelet Estimate Decreased Plt Morphology Comment Normal Poikilocytosis 1+ slight Anisocytosis 1+ slight Microcytosis 1+ slight Macrocytosis 1+ slight Tear Drop Cells 1+ slight Ovalocytes 1+ slight RBC Morph Comment Abnormal Sodium 142 (136-145) mEq/L Potassium 4.0 (3.5-5.1) mEq/L Chloride 103 (98-107) mEq/L Carbon Dioxide 30 (21-32) mEq/L Anion Gap 13.0 (5-15) BUN 31 H (7-18) mg/dL Creatinine 1.8 H (0.7-1.3) mg/dL Est Cr Clr Drug Dosing 30.08 mL/min Estimated GFR (MDRD) 36 (>60) mL/min BUN/Creatinine Ratio 17.2 (14-18) Glucose 137 H (83-115) mg/dL Calcium 9.5 (8.5-10.1) mg/dL Total Bilirubin 3.1 H (0.2-1.0) mg/dL Direct Bilirubin (0.0-0.2) mg/dl GGT (15-85) U/L AST 707 H (15-37) U/L ALT 350 H (16-63) U/L Alkaline Phosphatase 221 H (46-116) U/L Troponin I 0.021 (0.00-0.056) ng/mL C-Reactive Protein (<1.0) mg/dL Total Protein 7.5 (6.4-8.2) g/dl Albumin 3.8 (3.4-5.0) g/dl Globulin 3.7 gm/dL Albumin/Globulin Ratio 1.0 (1-2) Lipase (73-393) U/L Urine Color (Yellow) Urine Appearance (Clear) Urine pH (5.0-8.0) Ur Specific [place] (1.005-1.030) Urine Protein (Negative) Urine Glucose (UA) (Negative) Urine Ketones (Negative) Urine Occult Blood (Negative) Urine Nitrite (Negative) Urine Bilirubin (Negative) Urine Urobilinogen (0.2-1.0) Ur Leukocyte Esterase (Negative) Urine RBC (0-5) /hpf Urine WBC (0-5) /hpf Ur Epithelial Cells (0-5) /hpf Urine Bacteria (FEW) /hpf Urine Mucus (FEW) /hpf Acetaminophen (10-30) ug/mL Ethyl Alcohol (0.00) gm% Hepatitis C Antibody (NEGATIVE) Monoscreen (NEGATIVE) 10/03/17 10/03/17 10/03/17 Range/Units 17:30 17:30 17:30 WBC (4.23-9.07) K/mm3 RBC (4.63-6.08) M/mm3 Hgb (13.7-17.5) gm/L Hct (40.1-51.0) % MCV (79.0-92.2) fl MCH (25.7-32.2) pg MCHC (32.2-35.5) g/dl RDW Std Deviation (35.1-43.9) fL Plt Count (163-337) K/mm3 MPV (9.4-12.3) fl Neutrophils % (Manual) (40-60) % Band Neutrophils % (0-10) % Lymphocytes % (Manual) (20-40) % Atypical Lymphs % % Monocytes % (Manual) (2-10) % Eosinophils % (Manual) (0.8-7.0) % Basophils % (Manual) (0.2-1.2) Platelet Estimate Plt Morphology Comment Poikilocytosis Anisocytosis Microcytosis Macrocytosis Tear Drop Cells Ovalocytes RBC Morph Comment Sodium (136-145) mEq/L Potassium (3.5-5.1) mEq/L Chloride (98-107) mEq/L Carbon Dioxide (21-32) mEq/L Anion Gap (5-15) BUN (7-18) mg/dL Creatinine (0.7-1.3) mg/dL Est Cr Clr Drug Dosing mL/min Estimated GFR (MDRD) (>60) mL/min BUN/Creatinine Ratio (14-18) Glucose (83-115) mg/dL Calcium (8.5-10.1) mg/dL Total Bilirubin (0.2-1.0) mg/dL Direct Bilirubin 2.00 H (0.0-0.2) mg/dl GGT 384 H (15-85) U/L AST (15-37) U/L ALT (16-63) U/L Alkaline Phosphatase (46-116) U/L Troponin I (0.00-0.056) ng/mL C-Reactive Protein 1.1 H* (<1.0) mg/dL Total Protein (6.4-8.2) g/dl Albumin (3.4-5.0) g/dl Globulin gm/dL Albumin/Globulin Ratio (1-2) Lipase 130 (73-393) U/L Urine Color (Yellow) Urine Appearance (Clear) Urine pH (5.0-8.0) Ur Specific [place] (1.005-1.030) Urine Protein (Negative) Urine Glucose (UA) (Negative) Urine Ketones (Negative) Urine Occult Blood (Negative) Urine Nitrite (Negative) Urine Bilirubin (Negative) Urine Urobilinogen (0.2-1.0) Ur Leukocyte Esterase (Negative) Urine RBC (0-5) /hpf Urine WBC (0-5) /hpf Ur Epithelial Cells (0-5) /hpf Urine Bacteria (FEW) /hpf Urine Mucus (FEW) /hpf Acetaminophen 0 L (10-30) ug/mL Ethyl Alcohol 0.00 (0.00) gm% Hepatitis C Antibody Negative (NEGATIVE) Monoscreen Negative (NEGATIVE) 10/03/17 Range/Units 19:00 WBC (4.23-9.07) K/mm3 RBC (4.63-6.08) M/mm3 Hgb (13.7-17.5) gm/L Hct (40.1-51.0) % MCV (79.0-92.2) fl MCH (25.7-32.2) pg MCHC (32.2-35.5) g/dl RDW Std Deviation (35.1-43.9) fL Plt Count (163-337) K/mm3 MPV (9.4-12.3) fl Neutrophils % (Manual) (40-60) % Band Neutrophils % (0-10) % Lymphocytes % (Manual) (20-40) % Atypical Lymphs % % Monocytes % (Manual) (2-10) % Eosinophils % (Manual) (0.8-7.0) % Basophils % (Manual) (0.2-1.2) Platelet Estimate Plt Morphology Comment Poikilocytosis Anisocytosis Microcytosis Macrocytosis Tear Drop Cells Ovalocytes RBC Morph Comment Sodium (136-145) mEq/L Potassium (3.5-5.1) mEq/L Chloride (98-107) mEq/L Carbon Dioxide (21-32) mEq/L Anion Gap (5-15) BUN (7-18) mg/dL Creatinine (0.7-1.3) mg/dL Est Cr Clr Drug Dosing mL/min Estimated GFR (MDRD) (>60) mL/min BUN/Creatinine Ratio (14-18) Glucose (83-115) mg/dL Calcium (8.5-10.1) mg/dL Total Bilirubin (0.2-1.0) mg/dL Direct Bilirubin (0.0-0.2) mg/dl GGT (15-85) U/L AST (15-37) U/L ALT (16-63) U/L Alkaline Phosphatase (46-116) U/L Troponin I (0.00-0.056) ng/mL C-Reactive Protein (<1.0) mg/dL Total Protein (6.4-8.2) g/dl Albumin (3.4-5.0) g/dl Globulin gm/dL Albumin/Globulin Ratio (1-2) Lipase (73-393) U/L Urine Color Yellow (Yellow) Urine Appearance Clear (Clear) Urine pH 7.0 (5.0-8.0) Ur Specific [place] 1.015 (1.005-1.030) Urine Protein Negative (Negative) Urine Glucose (UA) Negative (Negative) Urine Ketones Negative (Negative) Urine Occult Blood Negative (Negative) Urine Nitrite Negative (Negative) Urine Bilirubin Negative (Negative) Urine Urobilinogen 2.0 H (0.2-1.0) Ur Leukocyte Esterase Negative (Negative) Urine RBC 0-5 (0-5) /hpf Urine WBC 0-5 (0-5) /hpf Ur Epithelial Cells 0-5 (0-5) /hpf Urine Bacteria Few (FEW) /hpf Urine Mucus Not seen (FEW) /hpf Acetaminophen (10-30) ug/mL Ethyl Alcohol (0.00) gm% Hepatitis C Antibody (NEGATIVE) Monoscreen (NEGATIVE) Meds: Medications Generic Name Dose Route Start Last Admin Trade Name Freq PRN Reason Stop Dose Admin Piperacillin Sod/Tazobactam 100 mls @ 200 mls/hr 10/03/17 22:14 Sod 4.5 gm/ Sodium Chloride IV 10/03/17 22:43 ONETIME ONE Sodium Chloride 10 ml 10/03/17 20:12 10/03/17 20:38 Saline Flush FLUSH 10 ml ASDIRECTED PRN Administration Keep Vein Open Discontinued Medications Generic Name Dose Route Start Last Admin Trade Name Freq PRN Reason Stop Dose Admin Diatrizoate Meglum/Diatrizoate Sod 90 ml 10/03/17 20:17 10/03/17 20:21 Gastrografin 37% PO 10/03/17 20:18 90 ml ONETIME ONE Administration Sodium Chloride 500 mls @ 500 mls/hr 10/03/17 20:12 10/03/17 20:34 Normal Saline IV 10/03/17 21:11 500 mls/hr ONETIME ONE Administration Iopamidol 100 ml 10/03/17 20:17 10/03/17 20:21 Isovue-300 (61%) IVPUSH 10/03/17 20:18 100 ml ONETIME ONE Administration Sodium Chloride 10 ml 10/03/17 20:17 10/03/17 20:21 Saline Flush FLUSH 10/03/17 20:18 10 ml ONETIME ONE Administration - Radiology Interpretation Free Text/Narrative:: chest 2 view shows a duel pacemaker. Cardiomegaly. Previous sternometry. No acute intrathoracic process. CT of the abdomen and pelvis with contrast impression per Dr. Cesar: 1 findings which are felt to be incidental as noted. Nothing acute appreciated. Specifically no discrete abnormalities seen within the pancreas. Gallbladder shows no calcified gallstones. - Re-Assessments/Exams Free Text/Narrative Re-Assessment/Exam: 10/03/17 23:28 Influenza is negative. The patient's CBC and CMP returned with an elevated total bilirubin and transaminase levels. A CRP, GGT, direct bilirubin, alcohol, Tylenol, hepatitis C and mononucleosis screen were onto his labs. Unable to get hepatitis B screening tonight. Patient again denies any abdominal pain. He feels comfortable at this time and states that his symptoms continue to improve. I discussed the case with our surgeon on-call, Dr. Vaz. He is concerned about ascending cholangitis. Recommend to be transferred to a higher level of care for antibiotics as well as possibly an ERCP. I spoke with the patient regarding this. He would like to go [facility]. Discussed case with Dr. Rich, hospitalist on-call for [facility]. Recommend given IV Zosyn. He'll be transported by ground ambulance to [facility]. Departure - Departure Time of Disposition: 23:31 Disposition: DC/Tfer to Acute Hospital 02 Condition: Serious Clinical Impression: Elevated transaminase level - Discharge Information Referrals: Vanessa Goodwin PA [Primary Care Provider] - Forms: ED Department Discharge Additional Instructions: Patient to be transferred to [facility] by ground ambulance. Concern for ascending cholangitis. - My Orders Last 24 Hours: My Active Orders 10/03/17 16:56 Cardiac Monitoring [RC] . DIRECTED EKG Documentation Completion [RC] STAT Chest 2V [CR] Stat 10/03/17 20:12 Peripheral IV Care [RC] . DIRECTED Sodium Chloride 0.9% [Saline Flush] 10 ml FLUSH ASDIRECTED PRN Peripheral IV Insertion Adult [OM.PC] Routine 10/03/17 22:14 Piperacillin/Tazobactam [Zosyn] 4.5 gm Sodium Chloride 0.9% [Normal Saline] 100 ml IV ONETIME - Assessment/Plan Last 24 Hours: My Active Orders 10/03/17 16:56 Cardiac Monitoring [RC] . DIRECTED EKG Documentation Completion [RC] STAT Chest 2V [CR] Stat 10/03/17 20:12 Peripheral IV Care [RC] . DIRECTED Sodium Chloride 0.9% [Saline Flush] 10 ml FLUSH ASDIRECTED PRN Peripheral IV Insertion Adult [OM.PC] Routine 10/03/17 22:14 Piperacillin/Tazobactam [Zosyn] 4.5 gm Sodium Chloride 0.9% [Normal Saline] 100 ml IV ONETIME
[2017-10-03] MEDS ORDERED: Piperacillin/Tazobactam 4.5 GM in Sodium Chloride 0.9% 100 ML IV ONE (22:14)
[2017-10-03] MEDS ORDERED: Sodium Chloride 0.9% 1,000 ML IV ONE (22:46)
--- NOTE | 2017-10-04 10:08 | CR ---
Chest: Two views of the chest were obtained. Comparison: Prior chest x-ray of 12/26/16. Heart is mildly enlarged. Mild tortuosity of the thoracic aorta is seen. Previous sternotomy for CABG is noted. Pacemaker is present. Lungs are clear. Right shoulder prosthesis is noted. Degenerative change scattered within the spine. Impression: 1. Incidental findings. Nothing acute is appreciated on two-view chest x-ray. Diagnostic code #2
== END 2017-10-03 23:34 ==
LOC: JD.ED 16:33
DX: R74.0 Nonspecific elevation of levels of transaminase and lactic acid dehydrogenase [LDH] (principal); I11.0 Hypertensive heart disease with heart failure; I50.9 Heart failure, unspecified; E78.00 Pure hypercholesterolemia, unspecified
CPT/HCPCS: 36415; 71020; 74177; 80053; 81001; 82248; 82977; 83690; 84484; 85025; 86140; 86308; 86803; 87804; 93005; 96361; 96365; 99285; G0480; J2543; J7030; J7040; J7050; Q9963; Q9967; 93010; 99284

== ENCOUNTER 2017-10-28 23:03 | Emergency (ER) | payer MEDICARE, BC ==
[2017-10-28 23:08] VITALS: BP 132/75
[2017-10-28] MEDS ORDERED: Sodium Chloride 0.9% 10 ML Syringe FLUSH PRN (23:19)
[2017-10-28] MEDS ORDERED: Sodium Chloride 0.9% 1,000 ML IV SCH (23:30)
--- NOTE | 2017-10-29 00:43 | EDM.PDOC ---
ED HPI GENERAL MEDICAL PROBLEM - General Chief Complaint: Chest Pain Stated Complaint: [facility] Time Seen by Provider: 10/28/17 23:14 Source of Information: Reports: Patient, EMS, Family History Limitations: Reports: No Limitations - History of Present Illness INITIAL COMMENTS - FREE TEXT/NARRATIVE: The patient presents by ambulance for right sided chest pain. This started this evening. He had his gallbladder out 3 weeks ago. He had some nausea with it. He was given zofran by EMS and that feels better. He has no shortness of breath. He does have some abdominal pain. That is from the surgery. He has no edema or pain in his legs. He has no history of DVT or PE. The pain and nausea are gone now. Onset: Sudden Duration: Hour(s): Location: Reports: Chest Quality: Reports: Sharp Severity: Moderate Improves with: Reports: None Worsens with: Reports: None Associated Symptoms: Reports: Chest Pain. Denies: Fever/Chills, Nausea/Vomiting , Shortness of Breath Chest Pain Score (Numeric/FACES): 5 - Related Data Allergies Allergy/AdvReac Type Severity Reaction Status Date / Time No Known Allergies Allergy Verified 10/03/17 16:44 Home Meds: Home Meds Allopurinol [Zyloprim] 200 mg PO BEDTIME 07/12/14 [History] Furosemide [Lasix] 80 mg PO BID 07/12/14 [History] Simvastatin [Zocor] 40 mg PO BEDTIME 07/12/14 [History] Tamsulosin [Flomax] 0.4 mg PO BID 07/12/14 [History] Carvedilol [Coreg] 6.25 mg PO BID 08/03/16 [History] Digoxin 125 mcg PO MOWEFR 08/03/16 [History] Finasteride 5 mg PO DAILY 08/03/16 [History] Nitroglycerin [Nitrostat] 0.4 mg SL Q5M PRN 08/03/16 [History] Sacubitril/Valsartan [Entresto 24 mg-26 mg Tablet] 2 tab PO BID 06/15/17 [ History] Aspirin [Lo-Dose Aspirin EC] 81 mg PO DAILY 10/28/17 [History] Ciprofloxacin HCl [Cipro] 500 mg PO BID 10/28/17 [History] Cyanocobalamin (Vitamin B-12) [B-12] 1,000 mcg PO DAILY 10/28/17 [History] Ergocalciferol (Vitamin D2) [Vitamin D2] 2,000 unit PO DAILY 10/28/17 [History] Ferrous Sulfate 324 mg PO ACBREAKFAST 10/28/17 [History] Glucosamine [Glucosamine Sulfate] 500 mg PO DAILY 10/28/17 [History] Hydrocodone/Acetaminophen [Hydrocodon-Acetaminophen 5-325] 1 each PO Q6HR PRN [History] Multivitamin [Multivitamins] 1 each PO DAILY 10/28/17 [History] Vit A/Vit C/Vit E/Zinc/Copper [Preservision] 1 each PO DAILY 10/28/17 [History] metroNIDAZOLE [Metronidazole] 500 mg PO TID 10/28/17 [History] Past Medical History HEENT History: Reports: Hard of Hearing Cardiovascular History: Reports: CAD, Heart Failure, High Cholesterol, Hypertension Other Cardiovascular History: quad bypass 2002 Respiratory History: Reports: Sleep Apnea Other Respiratory History: does not wear a CPAP Gastrointestinal History: Reports: Other (See Below) Other Gastrointestinal History: Hx of hernias x2 - both repaired surgically Genitourinary History: Reports: BPH, Renal Calculus Musculoskeletal History: Reports: Gout - Infectious Disease History Infectious Disease History: Reports: Chicken Pox - Past Surgical History HEENT Surgical History: Reports: Cataract Surgery, Oral Surgery, Tonsillectomy Cardiovascular Surgical History: Reports: Coronary Artery Bypass, Pacer GI Surgical History: Reports: Appendectomy, Cholecystectomy, Hernia, Inguinal Musculoskeletal Surgical History: Reports: Knee Replacement, Shoulder Surgery Social & Family History - Family History Cardiac: Reports: [place] Oncologic: Reports: Breast - Tobacco Use Smoking Status *Q: Never Smoker Second Hand Smoke Exposure: No - Caffeine Use Caffeine Use: Reports: Coffee, Soda - Alcohol Use Days Per Week of Alcohol Use: 0 - Recreational Drug Use Recreational Drug Use: No - Living Situation & Occupation Living situation: Reports: , Alone Occupation: Retired ED ROS GENERAL - Review of Systems Review Of Systems: See Below Constitutional: Reports: No Symptoms HEENT: Reports: No Symptoms Respiratory: Reports: No Symptoms Cardiovascular: Reports: Chest Pain Endocrine: Reports: No Symptoms GI/Abdominal: Reports: Abdominal Pain, Nausea. Denies: Diarrhea, Vomiting : Reports: No Symptoms Musculoskeletal: Reports: No Symptoms ED EXAM, GENERAL - Physical Exam Exam: See Below Exam Limited By: No Limitations General Appearance: Alert, No Apparent Distress Ears: Normal External Exam Nose: Normal Inspection Head: Atraumatic, Normocephalic Neck: Normal Inspection Respiratory/Chest: No Respiratory Distress, Lungs Clear, Normal Breath Sounds Cardiovascular: Regular Rate, Rhythm, No Edema, No Murmur, Other (Pain upon palpation to the RUQ and right lower chest) GI/Abdominal: Soft, No Organomegaly, No Mass, Tender (Mild tenderness to the RUQ ) Back Exam: Normal Inspection Extremities: Normal Inspection EKG INTERPRETATION EKG Date: 10/28/17 Time: 23:07 Rhythm: Other (A-V dual-paced complexes) Course - Vital Signs Last Recorded V/S: Last Vital Signs Temp 98.2 F 10/28/17 23:06 Pulse 85 10/28/17 23:06 Resp 17 10/28/17 23:06 BP 132/75 10/28/17 23:06 Pulse Ox - Orders/Labs/Meds Orders: Active Orders 24 hr Category Date Time Status Cardiac Monitoring [RC] . DIRECTED Care 10/28/17 23:19 Active EKG Documentation Completion [RC] STAT Care 10/28/17 23:20 Active Oxygen Therapy [RC] PRN Care 10/28/17 23:19 Active Peripheral IV Care [RC] . DIRECTED Care 10/28/17 23:20 Active Chest 1V Frontal [CR] Stat Exams 10/28/17 23:20 Taken Sodium Chloride 0.9% [Normal Saline] 1,000 ml Med 10/28/17 23:30 Active IV ASDIRECTED Sodium Chloride 0.9% [Saline Flush] Med 10/28/17 23:19 Active 10 ml FLUSH ASDIRECTED PRN Peripheral IV Insertion Adult [OM.PC] Stat Oth 10/28/17 23:19 Ordered Medication Orders Sodium Chloride (Normal Saline) 1,000 mls @ 125 mls/hr IV ASDIRECTED NOEL Last Admin: 10/28/17 23:37 Dose: 125 mls/hr Sodium Chloride (Saline Flush) 10 ml FLUSH ASDIRECTED PRN PRN Reason: Keep Vein Open Last Admin: 10/28/17 23:37 Dose: 10 ml Labs: Laboratory Tests 10/28/17 10/28/17 Range/Units 23:58 23:58 WBC 7.18 (4.23-9.07) K/mm3 RBC 4.08 L (4.63-6.08) M/mm3 Hgb 13.0 L (13.7-17.5) gm/L Hct 40.8 (40.1-51.0) % MCV 100.0 H (79.0-92.2) fl MCH 31.9 (25.7-32.2) pg MCHC 31.9 L (32.2-35.5) g/dl RDW Std Deviation 56.0 H (35.1-43.9) fL Plt Count 140 L (163-337) K/mm3 MPV 9.9 (9.4-12.3) fl Neut % (Auto) 80.7 H (34.0-67.9) % Lymph % (Auto) 11.7 L (21.8-53.1) % [place] % (Auto) 5.4 (5.3-12.2) % Eos % (Auto) 1.8 (0.8-7.0) Baso % (Auto) 0.3 (0.1-1.2) % Neut # (Auto) 5.79 H (1.78-5.38) K/mm3 Lymph # (Auto) 0.84 L (1.32-3.57) K/mm3 [place] # (Auto) 0.39 (0.30-0.82) K/mm3 Eos # (Auto) 0.13 (0.04-0.54) K/mm3 Baso # (Auto) 0.02 (0.01-0.08) K/mm3 Sodium 146 H (136-145) mEq/L Potassium 3.4 L (3.5-5.1) mEq/L Chloride 106 (98-107) mEq/L Carbon Dioxide 30 (21-32) mEq/L Anion Gap 13.4 (5-15) BUN 25 H (7-18) mg/dL Creatinine 1.6 H (0.7-1.3) mg/dL Est Cr Clr Drug Dosing 40.67 mL/min Estimated GFR (MDRD) 41 (>60) mL/min BUN/Creatinine Ratio 15.6 (14-18) Glucose 101 (83-115) mg/dL Calcium 9.3 (8.5-10.1) mg/dL Total Bilirubin 1.0 (0.2-1.0) mg/dL AST 26 (15-37) U/L ALT 27 (16-63) U/L Alkaline Phosphatase 66 (46-116) U/L Troponin I 0.031 (0.00-0.056) ng/mL Total Protein 7.0 (6.4-8.2) g/dl Albumin 3.5 (3.4-5.0) g/dl Globulin 3.5 gm/dL Albumin/Globulin Ratio 1.0 (1-2) Lipase 253 (73-393) U/L Meds: Medications Generic Name Dose Route Start Last Admin Trade Name Freq PRN Reason Stop Dose Admin Sodium Chloride 1,000 mls @ 125 mls/hr 10/28/17 23:30 10/28/17 23:37 Normal Saline IV 125 mls/hr ASDIRECTED NOEL Administration Sodium Chloride 10 ml 10/28/17 23:19 10/28/17 23:37 Saline Flush FLUSH 10 ml ASDIRECTED PRN Administration Keep Vein Open - Re-Assessments/Exams Free Text/Narrative Re-Assessment/Exam: 10/29/17 00:48 I ordered an IV saline lock, EKG, CXR and labs. His EKG shows a paced rhythm. His CXR shows cardiomegaly but nothing acute. His CBC looks good. His Na was slightly elevated at 146. His K was a little low at 3.4. His creatinine was slightly elevated at 1.6. That was improved from 1.8 when he was seen here 3 weeks ago. His lipase was negative. He feels better and he was even able to rest. I feel the pain was from the chest wall and abdomen. I will discharge him home. Departure - Departure Time of Disposition: 00:50 Disposition: Home, Self-Care 01 Condition: Good Clinical Impression: Atypical chest pain Abdominal pain Qualifiers: Abdominal location: right upper quadrant Qualified Code(s): R10.11 - Right upper quadrant pain Referrals: Vanessa Goodwin PA [Primary Care Provider] - 1 Week Forms: ED Department Discharge Additional Instructions: Take your medication as prescribed. Please return if you are worse. - My Orders Last 24 Hours: My Active Orders 10/28/17 23:19 Cardiac Monitoring [RC] . DIRECTED Oxygen Therapy [RC] PRN Sodium Chloride 0.9% [Saline Flush] 10 ml FLUSH ASDIRECTED PRN Peripheral IV Insertion Adult [OM.PC] Stat 10/28/17 23:20 EKG Documentation Completion [RC] STAT Peripheral IV Care [RC] . DIRECTED Chest 1V Frontal [CR] Stat 10/28/17 23:30 Sodium Chloride 0.9% [Normal Saline] 1,000 ml IV ASDIRECTED - Assessment/Plan Last 24 Hours: My Active Orders 10/28/17 23:19 Cardiac Monitoring [RC] . DIRECTED Oxygen Therapy [RC] PRN Sodium Chloride 0.9% [Saline Flush] 10 ml FLUSH ASDIRECTED PRN Peripheral IV Insertion Adult [OM.PC] Stat 10/28/17 23:20 EKG Documentation Completion [RC] STAT Peripheral IV Care [RC] . DIRECTED Chest 1V Frontal [CR] Stat 10/28/17 23:30 Sodium Chloride 0.9% [Normal Saline] 1,000 ml IV ASDIRECTED
--- NOTE | 2017-10-30 07:59 | CR ---
Chest: Portable view of the chest was obtained. Comparison: Prior chest x-ray of 12/26/16. Heart is enlarged. Tortuous thoracic aorta is seen with mild atherosclerotic change. AICD or pacemaker is noted. Sternotomy wires are noted for CABG. Lungs are clear. No acute pulmonary vascular congestion is seen. Previous right shoulder surgery is noted with right shoulder prosthesis. Mild degenerative change is noted within the left shoulder. Impression: 1. Multiple findings as noted above. Nothing acute is identified on portable chest x-ray. Diagnostic code #2
== END 2017-10-29 01:05 | disposition home or self-care (01) ==
LOC: SUPCPDRO 23:03 → JD.ED 23:03
DX: R07.89 Other chest pain (principal); R10.11 Right upper quadrant pain; E78.00 Pure hypercholesterolemia, unspecified; I10 Essential (primary) hypertension; Z79.899 Other long term (current) drug therapy; Z79.82 Long term (current) use of aspirin
CPT/HCPCS: 36415; 71010; 80053; 83690; 84484; 85025; 93005; 96360; 99285; J7040; J7050; 99283

== ENCOUNTER 2017-11-11 15:10 | Inpatient (IN) | payer MEDICARE, BC, OTHER ==
[2017-11-11] MEDS ORDERED: Sodium Chloride 0.9% 10 ML Syringe FLUSH PRN (16:17)
[2017-11-11] MEDS ORDERED: Furosemide 40 MG/4 ML VIAL IVPUSH ONE ×2 (16:18→19:44)
--- NOTE | 2017-11-11 17:52 | US ---
Left lower extremity deep venous ultrasound: Duplex and color flow imaging was obtained of the left common femoral, superficial femoral, proximal greater saphenous, popliteal, posterior tibial and peroneal veins. Right common femoral vein was also evaluated. Findings: Normal phasic flow, augmentation and compression is seen. Subcutaneous edema is identified within the lower extremity. Impression: 1. Subcutaneous edema. 2. No evidence of deep venous thrombosis is seen within the left lower extremity or within the right common femoral vein. Diagnostic code #2
--- NOTE | 2017-11-11 18:31 | EDM.PDOC ---
ED HPI GENERAL MEDICAL PROBLEM - General Chief Complaint: Cardiovascular Problem Stated Complaint: SWELLING IN L LEG Time Seen by Provider: 11/11/17 15:59 Source of Information: Reports: Patient, Family History Limitations: Reports: No Limitations - History of Present Illness INITIAL COMMENTS - FREE TEXT/NARRATIVE: The patient had his gallbladder out at the end of September. On October 28 he was seen here for chest pain. He followed up with his primary care doctor on the 07 of November and she increased his lasix. He has been more short of breath and having generalized weakness. He has swelling in both legs. The left is worse then his right. He denies fever, chills, cough, chest pain, abdominal pain, nausea or vomiting. His heavy duty custodian is Dr Church. Onset: Gradual Duration: Week(s): Severity: Moderate Improves with: Reports: None Worsens with: Reports: Movement Associated Symptoms: Reports: Shortness of Breath. Denies: Chest Pain, Cough, Fever/Chills, Headaches, Nausea/Vomiting Lower Back Pain Score (Numeric/FACES): 7 - Related Data Allergies Allergy/AdvReac Type Severity Reaction Status Date / Time No Known Allergies Allergy Verified 10/03/17 16:44 Home Meds: Home Meds Allopurinol [Zyloprim] 200 mg PO BEDTIME 07/12/14 [History] Furosemide [Lasix] 40 mg PO BID 07/12/14 [History] Simvastatin [Zocor] 40 mg PO BEDTIME 07/12/14 [History] Tamsulosin [Flomax] 0.4 mg PO BID 07/12/14 [History] Carvedilol [Coreg] 6.25 mg PO BIDMEALS 08/03/16 [History] Digoxin 125 mcg PO MOWEFR 08/03/16 [History] Finasteride 5 mg PO DAILY 08/03/16 [History] Nitroglycerin [Nitrostat] 0.4 mg SL Q5M PRN 08/03/16 [History] Sacubitril/Valsartan [Entresto 24 mg-26 mg Tablet] 1 tab PO BID 06/15/17 [ History] Aspirin [Lo-Dose Aspirin EC] 81 mg PO DAILY 10/28/17 [History] Cyanocobalamin (Vitamin B-12) [B-12] 1,000 mcg PO DAILY 10/28/17 [History] Ferrous Sulfate 324 mg PO ACBREAKFAST 10/28/17 [History] Glucosamine [Glucosamine Sulfate] 500 mg PO DAILY 10/28/17 [History] Multivitamin [Multivitamins] 1 each PO DAILY 10/28/17 [History] Vit A/Vit C/Vit E/Zinc/Copper [Preservision] 1 each PO DAILY 10/28/17 [History] Cholecalciferol (Vitamin D3) [Vitamin D3] 2,000 unit PO DAILY 11/11/17 [History] Past Medical History HEENT History: Reports: Hard of Hearing Cardiovascular History: Reports: CAD, Heart Failure, High Cholesterol, Hypertension Other Cardiovascular History: quad bypass 2002 Respiratory History: Reports: Sleep Apnea Other Respiratory History: does not wear a CPAP Gastrointestinal History: Reports: Other (See Below) Other Gastrointestinal History: Hx of hernias x2 - both repaired surgically Genitourinary History: Reports: BPH, Renal Calculus Musculoskeletal History: Reports: Gout - Infectious Disease History Infectious Disease History: Reports: Chicken Pox - Past Surgical History HEENT Surgical History: Reports: Cataract Surgery, Oral Surgery, Tonsillectomy Cardiovascular Surgical History: Reports: Coronary Artery Bypass, Pacer, Other ( See Below) Other Cardiovascular Surgeries/Procedures: 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 GI Surgical History: Reports: Appendectomy, Cholecystectomy, Hernia, Inguinal Musculoskeletal Surgical History: Reports: Knee Replacement, Shoulder Surgery Social & Family History - Family History Cardiac: Reports: [place] Oncologic: Reports: Breast - Tobacco Use Smoking Status *Q: Never Smoker Second Hand Smoke Exposure: No - Caffeine Use Caffeine Use: Reports: Coffee, Soda, Tea - Alcohol Use Days Per Week of Alcohol Use: 0 - Recreational Drug Use Recreational Drug Use: No - Living Situation & Occupation Living situation: Reports: , Alone Occupation: Retired ED ROS GENERAL - Review of Systems Review Of Systems: See Below Constitutional: Reports: No Symptoms HEENT: Reports: No Symptoms Respiratory: Reports: Shortness of Breath. Denies: Cough Cardiovascular: Reports: Edema. Denies: Chest Pain Endocrine: Reports: No Symptoms GI/Abdominal: Reports: No Symptoms : Reports: No Symptoms Musculoskeletal: Reports: No Symptoms ED EXAM, GENERAL - Physical Exam Exam: See Below Exam Limited By: No Limitations General Appearance: Alert, No Apparent Distress Ears: Normal External Exam Nose: Normal Inspection Head: Atraumatic, Normocephalic Neck: Normal Inspection Respiratory/Chest: No Respiratory Distress, Rales Cardiovascular: Regular Rate, Rhythm, No Edema, No Murmur GI/Abdominal: Soft, Non-Tender, No Organomegaly, No Mass Back Exam: Normal Inspection Extremities: Other (Moderate edema of both legs with the left being more then the right) EKG INTERPRETATION EKG Date: 11/11/17 Time: 16:07 Rhythm: Other (A-V dual-paced rhythm with some inhibition) Course - Vital Signs Last Recorded V/S: Last Vital Signs Temp 97.5 F 11/11/17 15:47 Pulse 69 11/11/17 15:47 Resp 18 11/11/17 15:47 BP 120/67 11/11/17 15:47 Pulse Ox 89 L 11/11/17 15:47 - Orders/Labs/Meds Orders: Active Orders 24 hr Category Date Time Status Cardiac Monitoring [RC] . DIRECTED Care 11/11/17 16:17 Active EKG Documentation Completion [RC] STAT Care 11/11/17 16:18 Active Oxygen Therapy [RC] PRN Care 11/11/17 16:17 Active Peripheral IV Care [RC] . DIRECTED Care 11/11/17 16:18 Active Chest 1V Frontal [CR] Stat Exams 11/11/17 16:18 Taken Sodium Chloride 0.9% [Saline Flush] Med 11/11/17 16:17 Active 10 ml FLUSH ASDIRECTED PRN Peripheral IV Insertion Adult [OM.PC] Stat Oth 11/11/17 16:17 Ordered Medication Orders Sodium Chloride (Saline Flush) 10 ml FLUSH ASDIRECTED PRN PRN Reason: Keep Vein Open Last Admin: 11/11/17 16:59 Dose: 10 ml Labs: Laboratory Tests 11/11/17 11/11/17 Range/Units 16:45 16:45 WBC 11.47 H (4.23-9.07) K/mm3 RBC 3.25 L (4.63-6.08) M/mm3 Hgb 10.3 L (13.7-17.5) gm/L Hct 32.2 L (40.1-51.0) % MCV 99.1 H (79.0-92.2) fl MCH 31.7 (25.7-32.2) pg MCHC 32.0 L (32.2-35.5) g/dl RDW Std Deviation 49.6 H (35.1-43.9) fL Plt Count 293 (163-337) K/mm3 MPV 9.8 (9.4-12.3) fl Neut % (Auto) 82.6 H (34.0-67.9) % Lymph % (Auto) 9.7 L (21.8-53.1) % [place] % (Auto) 6.9 (5.3-12.2) % Eos % (Auto) 0.3 L (0.8-7.0) Baso % (Auto) 0.2 (0.1-1.2) % Neut # (Auto) 9.48 H (1.78-5.38) K/mm3 Lymph # (Auto) 1.11 L (1.32-3.57) K/mm3 [place] # (Auto) 0.79 (0.30-0.82) K/mm3 Eos # (Auto) 0.04 (0.04-0.54) K/mm3 Baso # (Auto) 0.02 (0.01-0.08) K/mm3 Manual Slide Review Abnormal smear Sodium 137 (136-145) mEq/L Potassium 4.5 (3.5-5.1) mEq/L Chloride 101 (98-107) mEq/L Carbon Dioxide 31 (21-32) mEq/L Anion Gap 9.5 (5-15) BUN 21 H (7-18) mg/dL Creatinine 1.6 H (0.7-1.3) mg/dL Est Cr Clr Drug Dosing 40.67 mL/min Estimated GFR (MDRD) 41 (>60) mL/min BUN/Creatinine Ratio 13.1 L (14-18) Glucose 121 H (83-115) mg/dL Calcium 9.0 (8.5-10.1) mg/dL Total Bilirubin 0.8 (0.2-1.0) mg/dL AST 65 H (15-37) U/L ALT 58 (16-63) U/L Alkaline Phosphatase 97 (46-116) U/L Troponin I 0.063 H* (0.00-0.056) ng/mL NT-Pro-B Natriuret Pep 8377 H (0-450) pg/mL Total Protein 6.8 (6.4-8.2) g/dl Albumin 2.4 L (3.4-5.0) g/dl Globulin 4.4 gm/dL Albumin/Globulin Ratio 0.6 L (1-2) Digoxin 0.2 L (0.9-2.0) ng/mL Meds: Medications Generic Name Dose Route Start Last Admin Trade Name Dee PRN Reason Stop Dose Admin Sodium Chloride 10 ml 11/11/17 16:17 11/11/17 16:59 Saline Flush FLUSH 10 ml ASDIRECTED PRN Administration Keep Vein Open Discontinued Medications Generic Name Dose Route Start Last Admin Trade Name Frerico PRN Reason Stop Dose Admin Furosemide 40 mg 11/11/17 16:18 11/11/17 17:29 Lasix IVPUSH 11/11/17 16:19 40 mg NOW ONE Administration - Re-Assessments/Exams Free Text/Narrative Re-Assessment/Exam: 11/11/17 18:30 I ordered an IV saline lock, oxygen, EKG, CXR, labs, and lasix 40mg IV. His EKG was paced. His CXR shows cardiomegaly with congestive changes. The US of his left leg shows subcutaneous edema and no evidence fo DVT. His WBC was elevated at 11.47. His Hgb was low at 10.3. His creatinine was elevated at 1.6. His troponin was elevated at 0.063. His BNP was elevated at 8377. His dig was low at 0.2. I feel he needs to be admitted. I called Dr Murillo and she agreed to the admission. Departure - Departure Time of Disposition: 18:40 Disposition: Admitted As Inpatient 66 Condition: Fair Clinical Impression: Renal insufficiency, Hypoxia, Elevated troponin Acute exacerbation of CHF (congestive heart failure) Qualifiers: Congestive heart failure type: unspecified congestive heart failure type Qualified Code(s): I50.9 - Heart failure, unspecified Referrals: Vanessa Goodwin PA [Primary Care Provider] - - My Orders Last 24 Hours: My Active Orders 11/11/17 16:17 Cardiac Monitoring [RC] . DIRECTED Oxygen Therapy [RC] PRN Sodium Chloride 0.9% [Saline Flush] 10 ml FLUSH ASDIRECTED PRN Peripheral IV Insertion Adult [OM.PC] Stat 11/11/17 16:18 EKG Documentation Completion [RC] STAT Peripheral IV Care [RC] . DIRECTED Chest 1V Frontal [CR] Stat - Assessment/Plan Last 24 Hours: My Active Orders 11/11/17 16:17 Cardiac Monitoring [RC] . DIRECTED Oxygen Therapy [RC] PRN Sodium Chloride 0.9% [Saline Flush] 10 ml FLUSH ASDIRECTED PRN Peripheral IV Insertion Adult [OM.PC] Stat 11/11/17 16:18 EKG Documentation Completion [RC] STAT Peripheral IV Care [RC] . DIRECTED Chest 1V Frontal [CR] Stat
--- NOTE | 2017-11-11 20:06 | PCM.HP ---
H&P History of Present Illness - General Date of Service: 11/11/17 Source of Information: Patient, Provider History Limitations: Reports: No Limitations - History of Present Illness Initial Comments - Free Text/Narative: 82 year old male with reported changes in his medication s/p gallbladder removal. he stated that he was not restarted on his heart failure meds. The procedure was performed at the end of September. A chest pain evaluation followed in the ED on [address]. Recently he has been seen by his PCP November 07 for increasing SOB. It appears that his functional class is IIIb, He has been seen by Dr Church in [place] for his cardiology needs, the last visit was not clarified. Duration of Symptoms: Reports: Week(s):, Getting Worse Location: Reports: Generalized Quality: Reports: Same as Previous Episode Severity: Moderate Improves with: Reports: Medication Worsens with: Reports: None Associated Symptoms: Reports: Loss of Appetite, Shortness of Breath, Weakness Lower Back Pain Score (Numeric/FACES): 7 - Related Data Allergies/Adverse Reactions: Allergies Allergy/AdvReac Type Severity Reaction Status Date / Time No Known Allergies Allergy Verified 10/03/17 16:44 Home Medications: Home Meds Allopurinol [Zyloprim] 200 mg PO BEDTIME 07/12/14 [History] Furosemide [Lasix] 80 mg PO DAILY 07/12/14 [History] Simvastatin [Zocor] 40 mg PO BEDTIME 07/12/14 [History] Tamsulosin [Flomax] 0.4 mg PO BID 07/12/14 [History] Carvedilol [Coreg] 6.25 mg PO BIDMEALS 08/03/16 [History] Digoxin 125 mcg PO MOWEFR 08/03/16 [History] Finasteride 5 mg PO DAILY 08/03/16 [History] Nitroglycerin [Nitrostat] 0.4 mg SL Q5M PRN 08/03/16 [History] Sacubitril/Valsartan [Entresto 24 mg-26 mg Tablet] 1 tab PO BID 06/15/17 [ History] Aspirin [Lo-Dose Aspirin EC] 81 mg PO DAILY 10/28/17 [History] Cyanocobalamin (Vitamin B-12) [B-12] 1,000 mcg PO DAILY 10/28/17 [History] Ferrous Sulfate 324 mg PO ACBREAKFAST 10/28/17 [History] Glucosamine [Glucosamine Sulfate] 500 mg PO DAILY 10/28/17 [History] Multivitamin [Multivitamins] 1 each PO DAILY 10/28/17 [History] Vit A/Vit C/Vit E/Zinc/Copper [Preservision] 1 each PO DAILY 10/28/17 [History] Cholecalciferol (Vitamin D3) [Vitamin D3] 2,000 unit PO DAILY 11/11/17 [History] Furosemide [Lasix] 40 mg PO 1400 11/11/17 [History] Past Medical History HEENT History: Reports: Hard of Hearing Cardiovascular History: Reports: CAD, Heart Failure, High Cholesterol, Hypertension Other Cardiovascular History: quad bypass 2002 Respiratory History: Reports: Sleep Apnea Other Respiratory History: does not wear a CPAP Gastrointestinal History: Reports: Other (See Below) Other Gastrointestinal History: Hx of hernias x2 - both repaired surgically Genitourinary History: Reports: BPH, Renal Calculus Musculoskeletal History: Reports: Gout - Infectious Disease History Infectious Disease History: Reports: Chicken Pox - Past Surgical History HEENT Surgical History: Reports: Cataract Surgery, Oral Surgery, Tonsillectomy Cardiovascular Surgical History: Reports: Coronary Artery Bypass, Pacer, Other ( See Below) Other Cardiovascular Surgeries/Procedures: 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 GI Surgical History: Reports: Appendectomy, Cholecystectomy, Hernia, Inguinal Musculoskeletal Surgical History: Reports: Knee Replacement, Shoulder Surgery Social & Family History - Family History Cardiac: Reports: [place] Oncologic: Reports: Breast - Tobacco Use Smoking Status *Q: Never Smoker Second Hand Smoke Exposure: No - Caffeine Use Caffeine Use: Reports: Coffee, Soda, Tea - Alcohol Use Days Per Week of Alcohol Use: 0 - Recreational Drug Use Recreational Drug Use: No - Living Situation & Occupation Living situation: Reports: , Alone Occupation: Retired H&P Review of Systems - Review of Systems: Review Of Systems: See Below General: Reports: Weakness, Fatigue, Weight Gain HEENT: Reports: No Symptoms Pulmonary: Reports: Shortness of Breath Cardiovascular: Reports: Dyspnea on Exertion, Edema (+2) Gastrointestinal: Reports: Abdominal Pain, Decreased Appetite Genitourinary: Reports: No Symptoms Musculoskeletal: Reports: No Symptoms Skin: Reports: No Symptoms Psychiatric: Reports: No Symptoms Neurological: Reports: No Symptoms Hematologic/Lymphatic: Reports: No Symptoms Immunologic: Reports: No Symptoms Exam - Exam Exam: See Below - Vital Signs Vital Signs: Last Vital Signs Temp 36.4 C 11/11/17 15:47 Pulse 69 11/11/17 15:47 Resp 18 11/11/17 15:47 BP 120/67 11/11/17 15:47 Pulse Ox 85 L 11/11/17 18:53 Weight: 106.141 kg - Exam Quality Assessment: Supplemental Oxygen, DVT Prophylaxis General: Alert, Oriented, Cooperative HEENT: Conjunctiva Clear, Normal Nasal Septum, Pupils Equal, Pupils Reactive, PERRLA Neck: Trachea Midline Lungs: Normal Respiratory Effort, Decreased Breath Sounds Cardiovascular: Regular Rate GI/Abdominal Exam: Normal Bowel Sounds, Soft, Non-Tender, No Organomegaly, No Distention (Male) Exam: Deferred Rectal (Males) Exam: Deferred Back Exam: Normal Inspection Extremities: Normal Inspection, Pedal Edema Skin: Warm Neurological: Cranial Nerves Intact, Normal Speech Neuro Extensive - Mental Status: Alert, Oriented x3 Neuro Extensive - Motor, Sensory, Reflexes: CN II-XII Intact Psychiatric: Alert, Normal Affect, Normal Mood - Patient Data Result Diagrams: 11/12/17 06:10 11/12/17 06:10 *Q Meaningful Use (ADM) - VTE *Q VTE Criteria *Q: - Stroke *Q Stroke Criteria *Q: - AMI *Q AMI Criteria *Q: - Problem List (1) Acute exacerbation of CHF (congestive heart failure) SNOMED Code(s): 18802607 ICD Code: I50.9 - HEART FAILURE, UNSPECIFIED Status: Acute Current Visit : Yes Qualifiers: Congestive heart failure type: unspecified congestive heart failure type Qualified Code(s): I50.9 - Heart failure, unspecified (2) Elevated troponin SNOMED Code(s): 359905114, 067653183 ICD Code: R74.8 - ABNORMAL LEVELS OF OTHER SERUM ENZYMES Status: Acute Current Visit: Yes (3) Hypoxia SNOMED Code(s): 168865564 ICD Code: R09.02 - HYPOXEMIA Status: Acute Current Visit: Yes (4) Renal insufficiency SNOMED Code(s): 876139042 ICD Code: N28.9 - DISORDER OF KIDNEY AND URETER, UNSPECIFIED Status: Acute Current Visit: Yes Problem List Initiated/Reviewed/Updated: Yes Orders Last 24hrs: Active Orders 24 hr Category Date Time Status Insert Li Catheter [Insert Urinary Catheter] [OM.PC] Care 11/11/17 20:00 Ordered Q24H Urinary Catheter Assessment [RC] ASDIRECTED Care 11/11/17 19:53 Ordered BASIC METABOLIC PANEL,BMP [CHEM] DAILY Lab 11/12/17 05:00 Ordered BASIC METABOLIC PANEL,BMP [CHEM] DAILY Lab 11/13/17 05:00 Ordered BASIC METABOLIC PANEL,BMP [CHEM] DAILY Lab 11/14/17 05:00 Ordered BASIC METABOLIC PANEL,BMP [CHEM] DAILY Lab 11/15/17 05:00 Ordered CBC WITH AUTO DIFF [HEME] DAILY Lab 11/12/17 05:00 Ordered CBC WITH AUTO DIFF [HEME] DAILY Lab 11/13/17 05:00 Ordered CBC WITH AUTO DIFF [HEME] DAILY Lab 11/14/17 05:00 Ordered CBC WITH AUTO DIFF [HEME] DAILY Lab 11/15/17 05:00 Ordered CRP [C-REACTIVE PROTEIN] [CHEM] DAILY Lab 11/12/17 05:00 Ordered CRP [C-REACTIVE PROTEIN] [CHEM] DAILY Lab 11/13/17 05:00 Ordered CRP [C-REACTIVE PROTEIN] [CHEM] DAILY Lab 11/14/17 05:00 Ordered CRP [C-REACTIVE PROTEIN] [CHEM] DAILY Lab 11/15/17 05:00 Ordered MG [MAGNESIUM] [CHEM] DAILY Lab 11/12/17 05:00 Ordered MG [MAGNESIUM] [CHEM] DAILY Lab 11/13/17 05:00 Ordered MG [MAGNESIUM] [CHEM] DAILY Lab 11/14/17 05:00 Ordered MG [MAGNESIUM] [CHEM] DAILY Lab 11/15/17 05:00 Ordered MYCOPLASMA PNEUMONIAE IGM AB [CHEM] Routine Lab 11/12/17 05:00 Ordered PRO B-TYPE NATRIUR PEPT,BNPPRO [CHEM] Routine Lab 11/13/17 05:00 Ordered STREP PNEUMONIAE ANTIGEN [MREF] Routine Lab 11/11/17 19:55 Uncollected TROPONIN I [CHEM] Routine Lab 11/12/17 05:00 Ordered Allopurinol [Zyloprim] Med 11/11/17 21:00 Ordered 200 mg PO BEDTIME Aspirin [Halfprin] Med 11/12/17 09:00 Ordered 81 mg PO DAILY Carvedilol [Coreg] Med 11/12/17 07:00 Ordered 3.125 mg PO BIDMEALS Digoxin [Lanoxin] Med 11/12/17 19:12 Ordered 125 mcg PO MOWEFR Ferrous Sulfate Med 11/12/17 06:00 Ordered 324 mg PO ACBREAKFAST Finasteride [Proscar] Med 11/12/17 09:00 Ordered 5 mg PO DAILY Furosemide [Lasix] Med 11/11/17 19:44 Once 40 mg IVPUSH NOW ONE Furosemide [Lasix] Med 11/12/17 08:00 Once 40 mg IVPUSH NOW ONE Nitroglycerin [Nitrostat] Med 11/11/17 19:12 Ordered 0.4 mg SL Q5M PRN Simvastatin [Zocor] Med 11/11/17 21:00 Ordered 40 mg PO BEDTIME Tamsulosin [Flomax] Med 11/11/17 21:00 Ordered 0.4 mg PO BID Medication Orders Allopurinol (Zyloprim) 200 mg PO BEDTIME [facility] Aspirin (Halfprin) 81 mg PO DAILY [facility] Carvedilol (Coreg) 3.125 mg PO BIDMEALS [facility] Digoxin (Lanoxin) 125 mcg PO MoWeFr@1200 [facility] Ferrous Sulfate (Ferrous Sulfate) 325 mg PO ACBREAKFAST [facility] Finasteride (Proscar) 5 mg PO DAILY [facility] Furosemide (Lasix) 40 mg IVPUSH NOW ONE Stop: 11/11/17 19:45 Furosemide (Lasix) 40 mg IVPUSH NOW ONE Stop: 11/12/17 08:01 Nitroglycerin (Nitrostat) 0.4 mg SL Q5M PRN PRN Reason: Chest Pain Simvastatin (Zocor) 40 mg PO BEDTIME [facility] Sodium Chloride (Saline Flush) 10 ml FLUSH ASDIRECTED PRN PRN Reason: Keep Vein Open Last Admin: 11/11/17 16:59 Dose: 10 ml Tamsulosin HCl (Flomax) 0.4 mg PO BID [facility] Assessment/Plan Comment:: Impression: Acute exacerbation of CHF, NYHA functional class IIIb CAD/CABG RUTHIE, no CPAP Chronic HLD HTN BPH S/P AICD Plan: Diurese Hold ARB/ACEI Lasix IVP/may need lasix gtt Ischemic work up Infectious work up 2 gm sodium, heart healthy diet Fluid restriction DVT/GI prophylaxis CHF teaching
[2017-11-11] MEDS: Simvastatin 40 MG Tab PO SCH (21:11)
[2017-11-11] MEDS: Allopurinol 100 MG Tab PO SCH (21:11)
[2017-11-11] MEDS: Tamsulosin 0.4 MG Cap.ER PO SCH (21:11)
[2017-11-12] MEDS: Carvedilol 3.125 MG Tab PO SCH ×2 (06:21→17:42)
[2017-11-12] MEDS: Ferrous Sulfate 325 MG Tab PO SCH (06:23)
[2017-11-12] MEDS: Furosemide 40 MG/4 ML VIAL IVPUSH ONE ×2 (06:26→08:06)
--- NOTE | 2017-11-12 07:56 | CR ---
Chest: Portable view of the chest was obtained. Parison: Prior chest CT of 10/28/17. Heart is enlarged. Tortuous thoracic aorta is seen. Pacemaker is noted. Prior sternotomy for CABG is seen. Lungs are clear with no acute infiltrates. Previous right shoulder prosthesis is noted. Impression: 1. Cardiomegaly and other findings. Nothing acute is seen. Diagnostic code #2
[2017-11-12] MEDS: Finasteride 5 MG Tab PO SCH (08:40)
[2017-11-12] MEDS: Tamsulosin 0.4 MG Cap.ER PO SCH ×2 (08:40→20:44)
[2017-11-12] MEDS: Aspirin 81 MG Tab.EC PO SCH (08:40)
[2017-11-12] MEDS ORDERED: NORMAL SALINE IV SCH (11:30)
[2017-11-12] MEDS ORDERED: FUROSEMIDE IV SCH (11:30)
--- NOTE | 2017-11-12 11:48 | PCM.PN ---
- General Info Date of Service: 11/12/17 Functional Status: Reports: Tolerating Diet, Ambulating - Review of Systems General: Reports: Weakness, Fatigue HEENT: Reports: No Symptoms Pulmonary: Reports: Shortness of Breath Cardiovascular: Reports: No Symptoms Gastrointestinal: Reports: No Symptoms Genitourinary: Reports: No Symptoms Musculoskeletal: Reports: No Symptoms Skin: Reports: No Symptoms Neurological: Reports: No Symptoms Psychiatric: Reports: No Symptoms - Patient Data Vitals - Most Recent: Last Vital Signs Temp 36.4 C 11/12/17 08:36 Pulse 61 11/12/17 08:36 Resp 18 11/12/17 08:36 BP 109/47 L 11/12/17 08:36 Pulse Ox 98 11/12/17 08:36 Weight - Most Recent: 108.545 kg I&O - Last 24 Hours: Intake & Output 11/11/17 11/12/17 11/12/17 22:59 06:59 14:59 Intake Total 100 340 Output Total 265 0566 176 Balance -167 -9373 -390 Lab Results Last 24 Hours: Laboratory Results - last 24 hr 11/12/17 11/12/17 Range/Units 06:10 06:10 WBC 8.44 (4.23-9.07) K/mm3 RBC 2.95 L (4.63-6.08) M/mm3 Hgb 9.4 L (13.7-17.5) gm/L Hct 29.1 L (40.1-51.0) % MCV 98.6 H (79.0-92.2) fl MCH 31.9 (25.7-32.2) pg MCHC 32.3 (32.2-35.5) g/dl RDW Std Deviation 48.1 H (35.1-43.9) fL Plt Count 280 (163-337) K/mm3 MPV 9.7 (9.4-12.3) fl Neut % (Auto) 78.3 H (34.0-67.9) % Lymph % (Auto) 12.2 L (21.8-53.1) % [place] % (Auto) 8.2 (5.3-12.2) % Eos % (Auto) 0.9 (0.8-7.0) Baso % (Auto) 0.2 (0.1-1.2) % Neut # (Auto) 6.60 H (1.78-5.38) K/mm3 Lymph # (Auto) 1.03 L (1.32-3.57) K/mm3 [place] # (Auto) 0.69 (0.30-0.82) K/mm3 Eos # (Auto) 0.08 (0.04-0.54) K/mm3 Baso # (Auto) 0.02 (0.01-0.08) K/mm3 Manual Slide Review Abnormal smear Sodium 138 (136-145) mEq/L Potassium 3.5 (3.5-5.1) mEq/L Chloride 101 (98-107) mEq/L Carbon Dioxide 31 (21-32) mEq/L Anion Gap 9.5 (5-15) BUN 20 H (7-18) mg/dL Creatinine 1.5 H (0.7-1.3) mg/dL Est Cr Clr Drug Dosing 43.38 mL/min Estimated GFR (MDRD) 45 (>60) mL/min BUN/Creatinine Ratio 13.3 L (14-18) Glucose 103 (83-115) mg/dL Calcium 8.7 (8.5-10.1) mg/dL Magnesium 1.8 (1.8-2.4) mg/dl Troponin I 0.070 H* (0.00-0.056) ng/mL C-Reactive Protein 15.3 H* (<1.0) mg/dL Mycoplasma pneumon IgM Negative (NEGATIVE) Med Orders - Current: Current Medications Allopurinol (Zyloprim) 200 mg PO BEDTIME [facility] Last Admin: 11/11/17 21:11 Dose: 200 mg Aspirin (Halfprin) 81 mg PO DAILY [facility] Last Admin: 11/12/17 08:40 Dose: 81 mg Carvedilol (Coreg) 3.125 mg PO BIDMEALS [facility] Last Admin: 11/12/17 06:21 Dose: 3.125 mg Digoxin (Lanoxin) 125 mcg PO MoWeFr@1200 [facility] Ferrous Sulfate (Ferrous Sulfate) 325 mg PO ACBREAKFAST [facility] Last Admin: 11/12/17 06:23 Dose: 325 mg Finasteride (Proscar) 5 mg PO DAILY [facility] Last Admin: 11/12/17 08:40 Dose: 5 mg Furosemide 100 mg/ Sodium (Chloride) 100 mls @ 3 mls/hr IV TITRATE [facility] Nitroglycerin (Nitrostat) 0.4 mg SL Q5M PRN PRN Reason: Chest Pain Simvastatin (Zocor) 40 mg PO BEDTIME [facility] Last Admin: 11/11/17 21:11 Dose: 40 mg Sodium Chloride (Saline Flush) 10 ml FLUSH ASDIRECTED PRN PRN Reason: Keep Vein Open Last Admin: 11/11/17 16:59 Dose: 10 ml Tamsulosin HCl (Flomax) 0.4 mg PO BID [facility] Last Admin: 11/12/17 08:40 Dose: 0.4 mg Discontinued Medications Furosemide (Lasix) 40 mg IVPUSH NOW ONE Stop: 11/11/17 16:19 Last Admin: 11/11/17 17:29 Dose: 40 mg Furosemide (Lasix) 40 mg IVPUSH NOW ONE Stop: 11/11/17 19:45 Last Admin: 11/11/17 21:12 Dose: 40 mg Furosemide (Lasix) 40 mg IVPUSH NOW ONE Stop: 11/12/17 08:01 Last Admin: 11/12/17 08:06 Dose: Not Given - Exam Quality Assessment: DVT Prophylaxis General: Alert, Oriented, No Acute Distress HEENT: Pupils Equal, Pupils Reactive Neck: Trachea Midline, No JVD Lungs: Normal Respiratory Effort Cardiovascular: Regular Rate GI/Abdominal Exam: Normal Bowel Sounds, Soft, Non-Tender, No Organomegaly, No Distention (Male) Exam: Deferred Back Exam: Normal Inspection Extremities: Normal Inspection, Pedal Edema Skin: Warm Neurological: No New Focal Deficit Psy/Mental Status: Alert, Normal Affect, Normal Mood - Problem List & Annotations (1) Acute exacerbation of CHF (congestive heart failure) SNOMED Code(s): 86688241 Code(s): I50.9 - HEART FAILURE, UNSPECIFIED Status: Acute Current Visit: Yes Qualifiers: Congestive heart failure type: unspecified congestive heart failure type Qualified Code(s): I50.9 - Heart failure, unspecified (2) Elevated troponin SNOMED Code(s): 187134250, 194205253 Code(s): R74.8 - ABNORMAL LEVELS OF OTHER SERUM ENZYMES Status: Acute Current Visit: Yes (3) Hypoxia SNOMED Code(s): 138729575 Code(s): R09.02 - HYPOXEMIA Status: Acute Current Visit: Yes (4) Renal insufficiency SNOMED Code(s): 012662968 Code(s): N28.9 - DISORDER OF KIDNEY AND URETER, UNSPECIFIED Status: Acute Current Visit: Yes - Problem List Review Problem List Initiated/Reviewed/Updated: Yes - My Orders Last 24 Hours: My Active Orders 11/11/17 19:12 Nitroglycerin [Nitrostat] 0.4 mg SL Q5M PRN 11/11/17 19:53 Urinary Catheter Assessment [RC] 11/11/17 20:00 Insert Li Catheter [Insert Urinary Catheter] [OM.PC] Q24H 11/11/17 21:00 Allopurinol [Zyloprim] 200 mg PO BEDTIME Simvastatin [Zocor] 40 mg PO BEDTIME Tamsulosin [Flomax] 0.4 mg PO BID 11/11/17 21:25 STREP PNEUMONIAE ANTIGEN [MREF] Routine 11/11/17 23:58 Resuscitation Status Routine 11/11/17 Dinner Heart Healthy Diet [DIET] 11/12/17 06:00 Ferrous Sulfate 325 mg PO ACBREAKFAST 11/12/17 07:00 Carvedilol [Coreg] 3.125 mg PO BIDMEALS 11/12/17 09:00 Aspirin [Halfprin] 81 mg PO DAILY Finasteride [Proscar] 5 mg PO DAILY 11/12/17 11:30 Furosemide [Lasix] 100 mg Sodium Chloride 0.9% [Normal Saline] 90 ml IV TITRATE 11/12/17 12:00 Digoxin [Lanoxin] 125 mcg PO MoWeFr@1200 11/12/17 Breakfast Fluid Restriction [DIET] 11/13/17 05:00 BASIC METABOLIC PANEL,BMP [CHEM] DAILY CBC WITH AUTO DIFF [HEME] DAILY CRP [C-REACTIVE PROTEIN] [CHEM] DAILY MG [MAGNESIUM] [CHEM] DAILY PRO B-TYPE NATRIUR PEPT,BNPPRO [CHEM] Routine 11/14/17 05:00 BASIC METABOLIC PANEL,BMP [CHEM] DAILY CBC WITH AUTO DIFF [HEME] DAILY CRP [C-REACTIVE PROTEIN] [CHEM] DAILY MG [MAGNESIUM] [CHEM] DAILY 11/15/17 05:00 BASIC METABOLIC PANEL,BMP [CHEM] DAILY CBC WITH AUTO DIFF [HEME] DAILY CRP [C-REACTIVE PROTEIN] [CHEM] DAILY MG [MAGNESIUM] [CHEM] DAILY - Plan Plan:: Impression: Acute exacerbation of CHF, NYHA IIIb CAD/CABG RUTHIE, no CPAP Chronic HLD HTN BPH S/P AICD Plan: Diurese Hold ARB/ACEI Start lasix gtt Ischemic work up Infectious work up 2 gm sodium, heart healthy diet Fluid restriction DVT/GI prophylaxis CHF teaching
[2017-11-12] MEDS: Digoxin 125 MCG Tab PO SCH (12:26)
[2017-11-12] MEDS: Potassium Chloride 10% 20 MEQ/15 ML Soln 30 ML UD Cup PO SCH ×2 (17:42→20:45)
[2017-11-12] MEDS: Allopurinol 100 MG Tab PO SCH (20:44)
[2017-11-12] MEDS: Simvastatin 40 MG Tab PO SCH (20:45)
[2017-11-12] MEDS: Acetaminophen 325 MG Tab PO PRN (21:28)
[2017-11-13] MEDS: Ferrous Sulfate 325 MG Tab PO SCH (06:47)
[2017-11-13] MEDS: Carvedilol 3.125 MG Tab PO SCH ×2 (06:47→17:39)
[2017-11-13] MEDS: Potassium Chloride 10% 20 MEQ/15 ML Soln 30 ML UD Cup PO SCH ×2 (09:35→20:29)
[2017-11-13] MEDS: Finasteride 5 MG Tab PO SCH (09:35)
[2017-11-13] MEDS: Tamsulosin 0.4 MG Cap.ER PO SCH ×2 (09:36→20:29)
[2017-11-13] MEDS: Aspirin 81 MG Tab.EC PO SCH (09:36)
--- NOTE | 2017-11-13 09:42 | CR ---
Chest: Two views of the chest were obtained. Comparison: Prior chest x-ray of 11/11/17. Heart is enlarged. Tortuous thoracic aorta is seen. Sternotomy is noted for CABG. AICD is noted. Right shoulder prosthesis is seen. Slight atelectasis is noted within the right lung base. Lungs otherwise are clear. Mild degenerative change is scattered within the spine. Impression: 1. Mild cardiomegaly. Mild right basilar atelectasis. 2. Other incidental findings. Nothing acute is seen. Diagnostic code #2
--- NOTE | 2017-11-13 10:45 | PCM.PN ---
- General Info Date of Service: 11/13/17 Admission Dx/Problem (Free Text): Congestive Heart Failure Subjective Update: Follow Up Functional Status: Reports: Pain Controlled, Tolerating Diet, Ambulating, Urinating. Denies: New Symptoms - Review of Systems General: Denies: Fever, Weakness, Fatigue, Malaise, Chills HEENT: Reports: No Symptoms Pulmonary: Denies: Shortness of Breath Cardiovascular: Reports: Chest Pain. Denies: Dyspnea on Exertion, Lightheadedness Gastrointestinal: Denies: Abdominal Pain, Nausea, Vomiting Genitourinary: Reports: No Symptoms Musculoskeletal: Reports: No Symptoms Skin: Denies: Cyanosis, Mottled, Pallor, Diaphoresis Neurological: Denies: Confusion, Difficulty Walking, Weakness, Gait Disturbance Psychiatric: Denies: Depression, Anxiety, Agitation, Hallucinations Systems Review Comment:: No significant overnight or acute issues. He slept good last night. He feels pretty good. He coughs up phlegm. He is afebrile but with leukocytosis. His CRP is still elevated at 15. He is still on lasix drip. He report chest pain that is on an doff. This has been chronic to him in the past 3 months and gets it everyday. No aggravating or inciting factors. It usually goes away on its own. - Patient Data Vitals - Most Recent: Last Vital Signs Temp 36.8 C 11/13/17 04:08 Pulse 70 11/13/17 06:47 Resp 18 11/13/17 04:08 BP 120/71 11/13/17 06:47 Pulse Ox 96 11/13/17 04:08 Weight - Most Recent: 106.367 kg I&O - Last 24 Hours: Intake & Output 11/12/17 11/13/17 11/13/17 22:59 06:59 14:59 Intake Total 594 250 Output Total 1075 1000 Balance -481 -750 Lab Results Last 24 Hours: Laboratory Results - last 24 hr 11/12/17 11/13/17 11/13/17 Range/Units 21:05 06:09 06:09 WBC 9.75 H (4.23-9.07) K/mm3 RBC 3.20 L (4.63-6.08) M/mm3 Hgb 10.2 L (13.7-17.5) gm/L Hct 31.6 L (40.1-51.0) % MCV 98.8 H (79.0-92.2) fl MCH 31.9 (25.7-32.2) pg MCHC 32.3 (32.2-35.5) g/dl RDW Std Deviation 48.4 H (35.1-43.9) fL Plt Count 308 (163-337) K/mm3 MPV 9.8 (9.4-12.3) fl Neut % (Auto) 80.1 H (34.0-67.9) % Lymph % (Auto) 10.2 L (21.8-53.1) % [place] % (Auto) 8.3 (5.3-12.2) % Eos % (Auto) 1.0 (0.8-7.0) Baso % (Auto) 0.1 (0.1-1.2) % Neut # (Auto) 7.81 H (1.78-5.38) K/mm3 Lymph # (Auto) 0.99 L (1.32-3.57) K/mm3 [place] # (Auto) 0.81 (0.30-0.82) K/mm3 Eos # (Auto) 0.10 (0.04-0.54) K/mm3 Baso # (Auto) 0.01 (0.01-0.08) K/mm3 Manual Slide Review Abnormal smear Sodium 139 (136-145) mEq/L Potassium 4.2 (3.5-5.1) mEq/L Chloride 102 (98-107) mEq/L Carbon Dioxide 31 (21-32) mEq/L Anion Gap 10.2 (5-15) BUN 20 H (7-18) mg/dL Creatinine 1.4 H (0.7-1.3) mg/dL Est Cr Clr Drug Dosing 46.48 mL/min Estimated GFR (MDRD) 48 (>60) mL/min BUN/Creatinine Ratio 14.3 (14-18) Glucose 99 (83-115) mg/dL Calcium 9.0 (8.5-10.1) mg/dL Magnesium 1.9 (1.8-2.4) mg/dl CK-MB (CK-2) < 0.5 (0-3.6) ng/ml Troponin I 0.052 (0.00-0.056) ng/mL C-Reactive Protein 15.0 H* (<1.0) mg/dL NT-Pro-B Natriuret Pep 8504 H (0-450) pg/mL Quang Results Last 24 Hours: Microbiology 11/11/17 21:25 Streptococcus pneumoniae Antigen (M - Final Urine Med Orders - Current: Current Medications Acetaminophen (Tylenol) 650 mg PO Q4H PRN PRN Reason: Temperature Last Admin: 11/12/17 21:28 Dose: 650 mg Allopurinol (Zyloprim) 200 mg PO BEDTIME [facility] Last Admin: 11/12/17 20:44 Dose: 200 mg Aspirin (Halfprin) 81 mg PO DAILY [facility] Last Admin: 11/13/17 09:36 Dose: 81 mg Carvedilol (Coreg) 3.125 mg PO BIDMEALS [facility] Last Admin: 11/13/17 06:47 Dose: 3.125 mg Digoxin (Lanoxin) 125 mcg PO MoWeFr@1200 [facility] Last Admin: 11/12/17 12:26 Dose: 125 mcg Ferrous Sulfate (Ferrous Sulfate) 325 mg PO ACBREAKFAST [facility] Last Admin: 11/13/17 06:47 Dose: 325 mg Finasteride (Proscar) 5 mg PO DAILY [facility] Last Admin: 11/13/17 09:35 Dose: 5 mg Furosemide 100 mg/ Sodium (Chloride) 100 mls @ 3 mls/hr IV TITRATE [facility] Last Admin: 11/12/17 12:29 Dose: 3 mls/hr Nitroglycerin (Nitrostat) 0.4 mg SL Q5M PRN PRN Reason: Chest Pain Potassium Chloride (Potassium Chloride) 40 meq PO BID [facility] Stop: 11/13/17 21:01 Last Admin: 11/13/17 09:35 Dose: 40 meq Simvastatin (Zocor) 40 mg PO BEDTIME [facility] Last Admin: 11/12/17 20:45 Dose: 40 mg Sodium Chloride (Saline Flush) 10 ml FLUSH ASDIRECTED PRN PRN Reason: Keep Vein Open Last Admin: 11/11/17 16:59 Dose: 10 ml Tamsulosin HCl (Flomax) 0.4 mg PO BID [facility] Last Admin: 11/13/17 09:36 Dose: 0.4 mg Discontinued Medications Furosemide (Lasix) 40 mg IVPUSH NOW ONE Stop: 11/11/17 16:19 Last Admin: 11/11/17 17:29 Dose: 40 mg Furosemide (Lasix) 40 mg IVPUSH NOW ONE Stop: 11/11/17 19:45 Last Admin: 11/11/17 21:12 Dose: 40 mg Furosemide (Lasix) 40 mg IVPUSH NOW ONE Stop: 11/12/17 08:01 Last Admin: 11/12/17 08:06 Dose: Not Given - Exam General: Alert, Oriented, Cooperative, No Acute Distress HEENT: Pupils Equal, Pupils Reactive, EOMI, Mucous Membr. Moist/[place] Neck: Supple, Trachea Midline, No JVD Lungs: Normal Respiratory Effort, Decreased Breath Sounds, Rales Cardiovascular: Regular Rate, Regular Rhythm GI/Abdominal Exam: Normal Bowel Sounds, Soft, Non-Tender, No Organomegaly, No Distention, No Abnormal Bruit, No Mass, Pelvis Stable (Male) Exam: Other (indwelling muller catheter) Back Exam: Normal Inspection, Decreased Range of Motion Extremities: Normal Inspection, Normal Range of Motion, Non-Tender, Normal Capillary Refill, Pedal Edema, Other (trace bilateral lower extremity edema) Peripheral Pulses: 2+: Dorsalis Pedis (L), Dorsalis Pedis (R) Skin: Warm Neurological: No New Focal Deficit Psy/Mental Status: Alert, Normal Affect, Normal Mood - Problem List Review Problem List Initiated/Reviewed/Updated: Yes - Plan Plan:: Impression: Acute: Exacerbation of CHF - NYHA IIIb - Unknown baseline EF - ProBNP 8377-->8504; repeat level - On lasix drip and heart failure protocol with Is/Os, salt/fluid restrictions - On Carvedilol and Digoxin Bronchitis - Mild right atelectasis - WBC is 9.75 with CRP of 15 - Start Azithromycin 500 mg IV Daily, first dose now - IS as directed and Sputum Cx/Sx - Serial CXR as needed Angina/CAD - Acute on Chronic - Has CAGB- pain is intermittent not specific triggers - Start Imdur 15 mg po BID to hod if SBP is < 100 or HR < 60 Chronic: HLD HTN BPH S/P AICD CAD/CABG RUTHIE, no CPAP Plan: He is clinically stable Finish off lasix drip then d/c muller afterwards Start Bumex 0.5 mg IVP BID 2D echo pending final report Routine AM Labs Resume Entresto DVT/GI prophylaxis CHF teaching CM for d/c planning Code status:DNR/DNI
[2017-11-13] MEDS ORDERED: Azithromycin 500 MG in Sodium Chloride 0.9% 250 ML IV ONE (13:05)
[2017-11-13] MEDS ORDERED: Azithromycin 500 MG in Sodium Chloride 0.9% 250 ML IV SCH (13:30)
[2017-11-13] MEDS: Isosorbide Mononitrate 30 MG Tab.ER PO SCH (20:29)
[2017-11-13] MEDS: Simvastatin 40 MG Tab PO SCH (20:29)
[2017-11-13] MEDS: Allopurinol 100 MG Tab PO SCH (20:29)
[2017-11-13] MEDS: Heparin Sodium 5,000 Units/ML Vial SUBCUT SCH (20:32)
[2017-11-13] MEDS: Bumetanide 1 MG/4 ML MDV IVPUSH SCH (20:33)
[2017-11-13] MEDS: Acetaminophen 325 MG Tab PO PRN (20:52)
[2017-11-13] MEDS: Nitroglycerin 0.4 MG Tab.SL SL PRN (20:53)
[2017-11-14] MEDS: Ferrous Sulfate 325 MG Tab PO SCH (06:37)
[2017-11-14] MEDS: Carvedilol 3.125 MG Tab PO SCH ×2 (06:37→17:29)
[2017-11-14] MEDS: Finasteride 5 MG Tab PO SCH (08:49)
[2017-11-14] MEDS: Aspirin 81 MG Tab.EC PO SCH (08:49)
[2017-11-14] MEDS: Tamsulosin 0.4 MG Cap.ER PO SCH ×2 (08:49→21:16)
[2017-11-14] MEDS: guaiFENesin/Dextromethorphan 100-10 MG/5 ML Soln 5 ML Cup PO SCH ×2 (08:50→21:14)
[2017-11-14] MEDS: Bumetanide 1 MG/4 ML MDV IVPUSH SCH ×2 (08:51→21:17)
[2017-11-14] MEDS: Isosorbide Mononitrate 30 MG Tab.ER PO SCH ×2 (08:52→21:15)
[2017-11-14] MEDS: Heparin Sodium 5,000 Units/ML Vial SUBCUT SCH ×2 (08:52→21:17)
--- NOTE | 2017-11-14 09:22 | PCM.PN ---
- General Info Date of Service: 11/14/17 Admission Dx/Problem (Free Text): Congestive Heart Failure Subjective Update: Follow Up Functional Status: Reports: Pain Controlled, Tolerating Diet, Ambulating, Urinating. Denies: New Symptoms - Review of Systems General: Denies: Fever, Weakness, Fatigue, Malaise, Chills HEENT: Reports: No Symptoms Pulmonary: Reports: Shortness of Breath, Cough Cardiovascular: Denies: Chest Pain, Dyspnea on Exertion, Edema Gastrointestinal: Reports: No Symptoms Genitourinary: Reports: No Symptoms Musculoskeletal: Reports: No Symptoms Skin: Reports: No Symptoms Neurological: Denies: Confusion, Difficulty Walking, Weakness, Gait Disturbance Psychiatric: Reports: Depression, Anxiety. Denies: Agitation, Hallucinations Systems Review Comment:: No overnight or acute issues. He is doing just fine. No new complaints. - Patient Data Vitals - Most Recent: Last Vital Signs Temp 37.7 C 11/14/17 08:18 Pulse 50 L 11/14/17 08:18 Resp 17 11/14/17 08:18 BP 123/68 11/14/17 08:52 Pulse Ox 93 L 11/14/17 09:21 Weight - Most Recent: 104.871 kg I&O - Last 24 Hours: Intake & Output 11/13/17 11/14/17 11/14/17 22:59 06:59 14:59 Intake Total 626 400 Output Total 160 650 Balance 466 -250 Lab Results Last 24 Hours: Laboratory Results - last 24 hr 11/14/17 11/14/17 Range/Units 06:02 06:02 WBC 8.97 (4.23-9.07) K/mm3 RBC 3.14 L (4.63-6.08) M/mm3 Hgb 9.7 L (13.7-17.5) gm/L Hct 30.8 L (40.1-51.0) % MCV 98.1 H (79.0-92.2) fl MCH 30.9 (25.7-32.2) pg MCHC 31.5 L (32.2-35.5) g/dl RDW Std Deviation 48.0 H (35.1-43.9) fL Plt Count 324 (163-337) K/mm3 MPV 9.7 (9.4-12.3) fl Neut % (Auto) 81.1 H (34.0-67.9) % Lymph % (Auto) 10.6 L (21.8-53.1) % [place] % (Auto) 7.2 (5.3-12.2) % Eos % (Auto) 0.7 L (0.8-7.0) Baso % (Auto) 0.2 (0.1-1.2) % Neut # (Auto) 7.27 H (1.78-5.38) K/mm3 Lymph # (Auto) 0.95 L (1.32-3.57) K/mm3 [place] # (Auto) 0.65 (0.30-0.82) K/mm3 Eos # (Auto) 0.06 (0.04-0.54) K/mm3 Baso # (Auto) 0.02 (0.01-0.08) K/mm3 Sodium 140 (136-145) mEq/L Potassium 4.4 (3.5-5.1) mEq/L Chloride 104 (98-107) mEq/L Carbon Dioxide 29 (21-32) mEq/L Anion Gap 11.4 (5-15) BUN 19 H (7-18) mg/dL Creatinine 1.3 (0.7-1.3) mg/dL Est Cr Clr Drug Dosing 36.19 mL/min Estimated GFR (MDRD) 53 (>60) mL/min BUN/Creatinine Ratio 14.6 (14-18) Glucose 99 (83-115) mg/dL Calcium 8.9 (8.5-10.1) mg/dL Magnesium 2.0 (1.8-2.4) mg/dl C-Reactive Protein 14.6 H* (<1.0) mg/dL Med Orders - Current: Current Medications Acetaminophen (Tylenol) 650 mg PO Q4H PRN PRN Reason: Temperature Last Admin: 11/13/17 20:52 Dose: 650 mg Allopurinol (Zyloprim) 200 mg PO BEDTIME [facility] Last Admin: 11/13/17 20:29 Dose: 200 mg Aspirin (Halfprin) 81 mg PO DAILY [facility] Last Admin: 11/14/17 08:49 Dose: 81 mg Bumetanide (Bumex) 0.5 mg IVPUSH BID [facility] Last Admin: 11/14/17 08:51 Dose: 0.5 mg Carvedilol (Coreg) 3.125 mg PO BIDMEALS [facility] Last Admin: 11/14/17 06:37 Dose: 3.125 mg Digoxin (Lanoxin) 125 mcg PO MoWeFr@1200 [facility] Last Admin: 11/12/17 12:26 Dose: 125 mcg Ferrous Sulfate (Ferrous Sulfate) 325 mg PO ACBREAKFAST [facility] Last Admin: 11/14/17 06:37 Dose: 325 mg Finasteride (Proscar) 5 mg PO DAILY [facility] Last Admin: 11/14/17 08:49 Dose: 5 mg Guaifenesin/Phenylephrine HCl (Robitussin Dm) 10 ml PO BID [facility] Last Admin: 11/14/17 08:50 Dose: 10 ml Heparin Sodium (Porcine) (Heparin Sodium) 5,000 units SUBCUT Q12HR [facility] Last Admin: 11/14/17 08:52 Dose: 5,000 units Azithromycin 500 mg/ Sodium (Chloride) 250 mls @ 250 mls/hr IV Q24H [facility] Isosorbide Mononitrate (Imdur) 15 mg PO BID [facility] Last Admin: 11/14/17 08:52 Dose: 15 mg Nitroglycerin (Nitrostat) 0.4 mg SL Q5M PRN PRN Reason: Chest Pain Last Admin: 11/13/17 20:53 Dose: 0.4 mg Sacubitril/Valsartan [Entresto 24 Mg-26 Mg Tablet] 0 each PO BID [facility] Simvastatin (Zocor) 40 mg PO BEDTIME [facility] Last Admin: 11/13/17 20:29 Dose: 40 mg Sodium Chloride (Saline Flush) 10 ml FLUSH ASDIRECTED PRN PRN Reason: Keep Vein Open Last Admin: 11/11/17 16:59 Dose: 10 ml Tamsulosin HCl (Flomax) 0.4 mg PO BID [facility] Last Admin: 11/14/17 08:49 Dose: 0.4 mg Discontinued Medications Furosemide (Lasix) 40 mg IVPUSH NOW ONE Stop: 11/11/17 16:19 Last Admin: 11/11/17 17:29 Dose: 40 mg Furosemide (Lasix) 40 mg IVPUSH NOW ONE Stop: 11/11/17 19:45 Last Admin: 11/11/17 21:12 Dose: 40 mg Furosemide (Lasix) 40 mg IVPUSH NOW ONE Stop: 01/08/18 08:01 Last Admin: 11/12/17 08:06 Dose: Not Given Furosemide 100 mg/ Sodium (Chloride) 100 mls @ 3 mls/hr IV TITRATE [facility] Last Admin: 11/12/17 12:29 Dose: 3 mls/hr Azithromycin 500 mg/ Sodium (Chloride) 250 mls @ 250 mls/hr IV ONETIME ONE Stop: 11/13/17 14:04 Last Admin: 11/13/17 15:27 Dose: Not Given Azithromycin 500 mg/ Sodium (Chloride) 250 mls @ 250 mls/hr IV Q24H [facility] Last Admin: 11/13/17 15:25 Dose: 250 mls/hr Potassium Chloride (Potassium Chloride) 40 meq PO BID [facility] Stop: 11/13/17 21:01 Last Admin: 11/13/17 20:29 Dose: 40 meq - Exam Quality Assessment: Supplemental Oxygen General: Alert, Oriented, Cooperative, No Acute Distress HEENT: Pupils Equal, Pupils Reactive, EOMI, Mucous Membr. Moist/[place] Neck: Supple, Trachea Midline, No JVD, No Thyromegaly Lungs: Normal Respiratory Effort, Decreased Breath Sounds, Crackles Cardiovascular: Regular Rate, Regular Rhythm GI/Abdominal Exam: Normal Bowel Sounds, Soft, Non-Tender, No Organomegaly, No Distention, No Abnormal Bruit (Male) Exam: Deferred Back Exam: Normal Inspection, Decreased Range of Motion Extremities: Normal Inspection, Normal Range of Motion, Non-Tender, No Pedal Edema, Normal Capillary Refill - Problem List Review Problem List Initiated/Reviewed/Updated: Yes - My Orders Last 24 Hours: My Active Orders 11/13/17 13:09 CULTURE SPUTUM + SMEAR [RM] Stat 11/13/17 15:12 EKG Documentation Completion [RC] ASDIRECTED EKG 12 Lead [EK] Urgent 11/13/17 21:00 Bumetanide [Bumex] 0.5 mg IVPUSH BID Heparin Sodium 5,000 units SUBCUT Q12HR Isosorbide Mononitrate [Imdur] 15 mg PO BID 11/13/17 Dinner Sodium Restricted Diet [DIET] 11/14/17 09:00 Incentive Spirometry [RT Incentive Spirometry] [RC] ASDIRECTED Dextromethorphan/guaiFENesin [Robitussin DM] 10 ml PO BID Patient's Own Medication [Ptom] 0 each PO BID 11/14/17 09:01 Consult to Occupational Therapy [OT Evaluation and Treatment] [CONS] Routine PT Evaluation and Treatment [CONS] Routine 11/14/17 09:20 PRO B-TYPE NATRIUR PEPT,BNPPRO [CHEM] Urgent 11/14/17 13:00 Azithromycin [Zithromax] 500 mg Sodium Chloride 0.9% [Normal Saline] 250 ml IV Q24H 11/15/17 07:00 CBC W/O DIFF,HEMOGRAM [HEME] MOTH@69911/19/17 07:00 CBC W/O DIFF,HEMOGRAM [HEME] MOTH@69911/22/17 07:00 CBC W/O DIFF,HEMOGRAM [HEME] MOTH@69911/26/17 07:00 CBC W/O DIFF,HEMOGRAM [HEME] MOTH@69911/29/17 07:00 CBC W/O DIFF,HEMOGRAM [HEME] MOTH@69912/03/17 07:00 CBC W/O DIFF,HEMOGRAM [HEME] MOTH@07 - Plan Plan:: Impression: Acute: Exacerbation of CHF - NYHA IIIb - Unknown baseline EF - ProBNP 8377-->8504--> 8568 - On lasix drip and heart failure protocol with Is/Os, salt/fluid restrictions - On Carvedilol and Digoxin Bronchitis, Improved - Mild right atelectasis - WBC is 9.75--> 8.97; CRP of 15--> 14.6 - Start Azithromycin 500 mg IV Daily, first dose now - IS as directed and Sputum Cx/Sx - Serial CXR as needed Resolved: Angina/CAD - 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
[2017-11-14] MEDS: Digoxin 125 MCG Tab PO SCH (11:42)
[2017-11-14] MEDS: Azithromycin 500 MG in Sodium Chloride 0.9% 250 ML IV SCH (12:09)
[2017-11-14] MEDS: Sacubitril/Valsartan [Entresto 24 Mg-26 Mg Tablet] PO SCH ×2 (14:23→21:18)
[2017-11-14] MEDS: Allopurinol 100 MG Tab PO SCH (21:16)
[2017-11-14] MEDS: Simvastatin 40 MG Tab PO SCH (21:16)
[2017-11-15] MEDS: Nitroglycerin 0.4 MG Tab.SL SL PRN ×2 (03:59→04:10)
[2017-11-15] MEDS: Acetaminophen 325 MG Tab PO PRN (04:00)
[2017-11-15] MEDS ORDERED: Morphine 2 MG/ML Syringe IVPUSH ONE (04:35)
[2017-11-15] MEDS ORDERED: LORazepam 2 MG/ML MDV IVPUSH ONE (04:36)
[2017-11-15] MEDS: Carvedilol 3.125 MG Tab PO SCH ×2 (06:42→18:49)
[2017-11-15] MEDS: Ferrous Sulfate 325 MG Tab PO SCH (06:42)
[2017-11-15] MEDS: Bumetanide 1 MG/4 ML MDV IVPUSH SCH (09:21)
[2017-11-15] MEDS: Isosorbide Mononitrate 30 MG Tab.ER PO SCH ×2 (09:22→21:07)
[2017-11-15] MEDS: guaiFENesin/Dextromethorphan 100-10 MG/5 ML Soln 5 ML Cup PO SCH ×2 (09:22→21:06)
[2017-11-15] MEDS: Heparin Sodium 5,000 Units/ML Vial SUBCUT SCH ×2 (09:22→21:07)
[2017-11-15] MEDS: Tamsulosin 0.4 MG Cap.ER PO SCH ×2 (09:23→21:08)
[2017-11-15] MEDS: Finasteride 5 MG Tab PO SCH (09:23)
[2017-11-15] MEDS: Aspirin 81 MG Tab.EC PO SCH (09:23)
[2017-11-15] MEDS: Sacubitril/Valsartan [Entresto 24 Mg-26 Mg Tablet] PO SCH ×2 (09:29→21:20)
--- NOTE | 2017-11-15 09:40 | PCM.PN ---
- General Info Date of Service: 11/15/17 Admission Dx/Problem (Free Text): Congestive Heart Failure Efrem is seen this morning. Feeling well at this time but did have chest pain overnight at around 4am. He rec'd 2 doses of nitro, then ativan and morphine. Pain is completely resolved at this point. He feels weak. Appetite is down today. Functional Status: Reports: Pain Controlled, Tolerating Diet, Ambulating, Urinating - Review of Systems General: Reports: Weakness, Fatigue, Night Sweats Pulmonary: Denies: Shortness of Breath, Cough Cardiovascular: Reports: Chest Pain (at 4am- resolved now). Denies: Palpitations, Dyspnea on Exertion (not exerted yet today) Gastrointestinal: Reports: No Symptoms Genitourinary: Reports: No Symptoms Neurological: Reports: No Symptoms - Patient Data Vitals - Most Recent: Last Vital Signs Temp 99.1 F 11/15/17 07:24 Pulse 82 11/15/17 07:24 Resp 18 11/15/17 07:24 BP 124/65 11/15/17 09:22 Pulse Ox 92 L 11/15/17 07:24 Weight - Most Recent: 229 lb 12.8 oz I&O - Last 24 Hours: Intake & Output 11/14/17 11/15/17 11/15/17 22:59 06:59 14:59 Intake Total 850 300 Output Total 800 Balance 50 300 Lab Results Last 24 Hours: Laboratory Results - last 24 hr 11/14/17 11/15/17 11/15/17 Range/Units 06:02 04:50 04:50 WBC 7.97 (4.23-9.07) K/mm3 RBC 3.51 L (4.63-6.08) M/mm3 Hgb 11.0 L (13.7-17.5) gm/L Hct 34.1 L (40.1-51.0) % MCV 97.2 H (79.0-92.2) fl MCH 31.3 (25.7-32.2) pg MCHC 32.3 (32.2-35.5) g/dl RDW Std Deviation 48.2 H (35.1-43.9) fL Plt Count 365 H (163-337) K/mm3 MPV 9.3 L (9.4-12.3) fl Neut % (Auto) 86.2 H (34.0-67.9) % Lymph % (Auto) 10.2 L (21.8-53.1) % [place] % (Auto) 2.9 L (5.3-12.2) % Eos % (Auto) 0.3 L (0.8-7.0) Baso % (Auto) 0.1 (0.1-1.2) % Neut # (Auto) 6.88 H (1.78-5.38) K/mm3 Lymph # (Auto) 0.81 L (1.32-3.57) K/mm3 [place] # (Auto) 0.23 L (0.30-0.82) K/mm3 Eos # (Auto) 0.02 L (0.04-0.54) K/mm3 Baso # (Auto) 0.01 (0.01-0.08) K/mm3 Manual Slide Review Abnormal smear Sodium 140 (136-145) mEq/L Potassium 4.2 (3.5-5.1) mEq/L Chloride 103 (98-107) mEq/L Carbon Dioxide 29 (21-32) mEq/L Anion Gap 12.2 (5-15) BUN 19 H (7-18) mg/dL Creatinine 1.4 H (0.7-1.3) mg/dL Est Cr Clr Drug Dosing 46.48 mL/min Estimated GFR (MDRD) 48 (>60) mL/min BUN/Creatinine Ratio 13.6 L (14-18) Glucose 125 H (83-115) mg/dL Calcium 9.4 (8.5-10.1) mg/dL Magnesium 2.0 (1.8-2.4) mg/dl CK-MB (CK-2) (0-3.6) ng/ml Troponin I (0.00-0.056) ng/mL C-Reactive Protein 16.1 H* (<1.0) mg/dL NT-Pro-B Natriuret Pep 8568 H (0-450) pg/mL 11/15/17 11/15/17 Range/Units 04:50 08:39 WBC (4.23-9.07) K/mm3 RBC (4.63-6.08) M/mm3 Hgb (13.7-17.5) gm/L Hct (40.1-51.0) % MCV (79.0-92.2) fl MCH (25.7-32.2) pg MCHC (32.2-35.5) g/dl RDW Std Deviation (35.1-43.9) fL Plt Count (163-337) K/mm3 MPV (9.4-12.3) fl Neut % (Auto) (34.0-67.9) % Lymph % (Auto) (21.8-53.1) % [place] % (Auto) (5.3-12.2) % Eos % (Auto) (0.8-7.0) Baso % (Auto) (0.1-1.2) % Neut # (Auto) (1.78-5.38) K/mm3 Lymph # (Auto) (1.32-3.57) K/mm3 [place] # (Auto) (0.30-0.82) K/mm3 Eos # (Auto) (0.04-0.54) K/mm3 Baso # (Auto) (0.01-0.08) K/mm3 Manual Slide Review Sodium (136-145) mEq/L Potassium (3.5-5.1) mEq/L Chloride (98-107) mEq/L Carbon Dioxide (21-32) mEq/L Anion Gap (5-15) BUN (7-18) mg/dL Creatinine (0.7-1.3) mg/dL Est Cr Clr Drug Dosing mL/min Estimated GFR (MDRD) (>60) mL/min BUN/Creatinine Ratio (14-18) Glucose (83-115) mg/dL Calcium (8.5-10.1) mg/dL Magnesium (1.8-2.4) mg/dl CK-MB (CK-2) < 0.5 (0-3.6) ng/ml Troponin I 0.058 H* 0.084 H* (0.00-0.056) ng/mL C-Reactive Protein (<1.0) mg/dL NT-Pro-B Natriuret Pep (0-450) pg/mL Med Orders - Current: Current Medications Acetaminophen (Tylenol) 650 mg PO Q4H PRN PRN Reason: Temperature Last Admin: 11/15/17 04:00 Dose: 650 mg Allopurinol (Zyloprim) 200 mg PO BEDTIME [facility] Last Admin: 11/14/17 21:16 Dose: 200 mg Aspirin (Halfprin) 81 mg PO DAILY [facility] Last Admin: 11/15/17 09:23 Dose: 81 mg Bumetanide (Bumex) 0.5 mg IVPUSH BID [facility] Last Admin: 11/15/17 09:21 Dose: 0.5 mg Carvedilol (Coreg) 3.125 mg PO BIDMEALS [facility] Last Admin: 11/15/17 06:42 Dose: 3.125 mg Digoxin (Lanoxin) 125 mcg PO MoWeFr@1200 [facility] Last Admin: 11/14/17 11:42 Dose: 125 mcg Ferrous Sulfate (Ferrous Sulfate) 325 mg PO ACBREAKFAST [facility] Last Admin: 11/15/17 06:42 Dose: 325 mg Finasteride (Proscar) 5 mg PO DAILY [facility] Last Admin: 11/15/17 09:23 Dose: 5 mg Guaifenesin/Phenylephrine HCl (Robitussin Dm) 10 ml PO BID [facility] Last Admin: 11/15/17 09:22 Dose: 10 ml Heparin Sodium (Porcine) (Heparin Sodium) 5,000 units SUBCUT Q12HR [facility] Last Admin: 11/15/17 09:22 Dose: 5,000 units Azithromycin 500 mg/ Sodium (Chloride) 250 mls @ 250 mls/hr IV Q24H [facility] Last Admin: 11/14/17 12:09 Dose: 250 mls/hr Isosorbide Mononitrate (Imdur) 15 mg PO BID [facility] Last Admin: 11/15/17 09:22 Dose: 15 mg Nitroglycerin (Nitrostat) 0.4 mg SL Q5M PRN PRN Reason: Chest Pain Last Admin: 11/15/17 04:10 Dose: 0.4 mg Sacubitril/Valsartan [Entresto 24 Mg-26 Mg Tablet] 0 each PO BID [facility] Last Admin: 11/15/17 09:29 Dose: Not Given Simvastatin (Zocor) 40 mg PO BEDTIME [facility] Last Admin: 11/14/17 21:16 Dose: 40 mg Sodium Chloride (Saline Flush) 10 ml FLUSH ASDIRECTED PRN PRN Reason: Keep Vein Open Last Admin: 11/11/17 16:59 Dose: 10 ml Tamsulosin HCl (Flomax) 0.4 mg PO BID [facility] Last Admin: 11/15/17 09:23 Dose: 0.4 mg Discontinued Medications Furosemide (Lasix) 40 mg IVPUSH NOW ONE Stop: 11/11/17 16:19 Last Admin: 11/11/17 17:29 Dose: 40 mg Furosemide (Lasix) 40 mg IVPUSH NOW ONE Stop: 11/11/17 19:45 Last Admin: 11/11/17 21:12 Dose: 40 mg Furosemide (Lasix) 40 mg IVPUSH NOW ONE Stop: 11/12/17 08:01 Last Admin: 11/12/17 08:06 Dose: Not Given Furosemide 100 mg/ Sodium (Chloride) 100 mls @ 3 mls/hr IV TITRATE [facility] Last Admin: 11/12/17 12:29 Dose: 3 mls/hr Azithromycin 500 mg/ Sodium (Chloride) 250 mls @ 250 mls/hr IV ONETIME ONE Stop: 11/13/17 14:04 Last Admin: 11/13/17 15:27 Dose: Not Given Azithromycin 500 mg/ Sodium (Chloride) 250 mls @ 250 mls/hr IV Q24H [facility] Last Admin: 11/13/17 15:25 Dose: 250 mls/hr Lorazepam (Ativan) 0.5 mg IVPUSH ONETIME ONE Stop: 11/15/17 04:37 Last Admin: 11/15/17 05:06 Dose: 0.5 mg Morphine Sulfate (Morphine) 0.5 mg IVPUSH ONETIME ONE Stop: 11/15/17 04:36 Last Admin: 11/15/17 04:45 Dose: 0.5 mg Potassium Chloride (Potassium Chloride) 40 meq PO BID [facility] Stop: 11/13/17 21:01 Last Admin: 11/13/17 20:29 Dose: 40 meq - Exam Quality Assessment: DVT Prophylaxis General: Alert, Oriented, Cooperative, No Acute Distress HEENT: Pupils Equal, EOMI, Mucous Membr. Moist/[place] Neck: Supple Lungs: Normal Respiratory Effort, Decreased Breath Sounds (bilat bases) Cardiovascular: Regular Rate, Regular Rhythm GI/Abdominal Exam: Normal Bowel Sounds, Soft, Non-Tender (Male) Exam: Deferred Extremities: Normal Capillary Refill, Pedal Edema (trace to 1+ bilat LE) Peripheral Pulses: 1+: Dorsalis Pedis (L), Dorsalis Pedis (R) Neurological: No New Focal Deficit Psy/Mental Status: Alert, Normal Affect, Normal Mood - Problem List & Annotations (1) Acute exacerbation of CHF (congestive heart failure) SNOMED Code(s): 15159286 Code(s): I50.9 - HEART FAILURE, UNSPECIFIED Status: Acute Priority: High Current Visit: Yes Qualifiers: Congestive heart failure type: unspecified congestive heart failure type Qualified Code(s): I50.9 - Heart failure, unspecified (2) Elevated troponin SNOMED Code(s): 263237939, 509452091 Code(s): R74.8 - ABNORMAL LEVELS OF OTHER SERUM ENZYMES Status: Chronic Priority: Medium Current Visit: Yes (3) Hypoxia SNOMED Code(s): 552173019 Code(s): R09.02 - HYPOXEMIA Status: Resolved Priority: High Current Visit: Yes (4) Renal insufficiency SNOMED Code(s): 444291802 Code(s): N28.9 - DISORDER OF KIDNEY AND URETER, UNSPECIFIED Status: Chronic Priority: Medium Current Visit: Yes - Problem List Review Problem List Initiated/Reviewed/Updated: Yes - My Orders Last 24 Hours: My Active Orders 11/16/17 05:11 BASIC METABOLIC PANEL,BMP [CHEM] AM CBC WITH AUTO DIFF [HEME] AM MAGNESIUM [CHEM] AM - Plan Plan:: Impression: Acute: Exacerbation of CHF - NYHA IIIb - Unknown baseline EF - ProBNP 8377-->8504--> 8568 - Now off of lasix drip; bumex IVP BID, heart failure protocol with Is/Os, salt/fluid restrictions - On Carvedilol and Digoxin, entresto as outpatient Bronchitis, Improved - Mild right atelectasis - WBC is 9.75--> 8.97; CRP of 15--> 14.6 - Start Azithromycin 500 mg IV Daily--day 2 - IS as directed and Sputum Cx/Sx - Serial CXR as needed Angina/CAD, acute on chronic - Has CAGB- pain is intermittent not specific triggers - Start Imdur 15 mg po BID to hod if SBP is < 100 or HR < 60 - PRN Nitro for chest pain, also morphine and ativan--were helpful last night. - Trops stable, CKMB negative Generalized weakness - PT/OT Chronic: HLD HTN BPH S/P AICD CAD/CABG RUTHIE, no CPAP Plan: He remains clinically stable Continue current treatment 2D echo pending final report Routine AM Labs DVT/GI prophylaxis CM for d/c planning---likely DC tomorrow- home. LOS anticipate >96hrs due to slow response to treatment with CHF exacerbation. Patient is DNR/DNI code status Vanessa Goodwin PA-C is PCP with [facility].
[2017-11-15] MEDS: Azithromycin 500 MG in Sodium Chloride 0.9% 250 ML IV SCH (13:40)
[2017-11-15] MEDS: Furosemide 40 MG Tab PO SCH (14:49)
[2017-11-15] MEDS: Allopurinol 100 MG Tab PO SCH (21:08)
[2017-11-15] MEDS: Simvastatin 40 MG Tab PO SCH (21:08)
[2017-11-16] MEDS: Carvedilol 3.125 MG Tab PO SCH ×2 (06:11→18:50)
[2017-11-16] MEDS: Ferrous Sulfate 325 MG Tab PO SCH (06:11)
--- NOTE | 2017-11-16 07:42 | PCM.PN ---
- General Info Date of Service: 11/16/17 Admission Dx/Problem (Free Text): Congestive Heart Failure Efrem is seen this morning. No CP overnight. Eating breakfast currently. Denies c/ o or concerns. Functional Status: Reports: Pain Controlled, Tolerating Diet, Ambulating, Incentive Spirometry. Denies: New Symptoms - Review of Systems General: Reports: Weakness (improved) HEENT: Reports: No Symptoms Pulmonary: Reports: Shortness of Breath (mild), Cough (mild) Cardiovascular: Denies: Chest Pain (none for 24 hours/ has chronic angina), Palpitations, Lightheadedness Gastrointestinal: Reports: No Symptoms Neurological: Reports: No Symptoms Psychiatric: Reports: No Symptoms - Patient Data Vitals - Most Recent: Last Vital Signs Temp 98.2 F 11/16/17 05:42 Pulse 67 11/16/17 06:11 Resp 18 11/16/17 05:42 BP 123/72 11/16/17 06:11 Pulse Ox 99 11/16/17 05:42 Weight - Most Recent: 230 lb 8 oz I&O - Last 24 Hours: Intake & Output 11/15/17 11/16/17 11/16/17 22:59 06:59 14:59 Intake Total 890 300 Output Total 450 Balance 890 -150 Lab Results Last 24 Hours: Laboratory Results - last 24 hr 11/15/17 11/16/17 11/16/17 Range/Units 08:39 05:50 05:50 WBC 15.21 H (4.23-9.07) K/mm3 RBC 3.17 L (4.63-6.08) M/mm3 Hgb 9.9 L (13.7-17.5) gm/L Hct 31.1 L (40.1-51.0) % MCV 98.1 H (79.0-92.2) fl MCH 31.2 (25.7-32.2) pg MCHC 31.8 L (32.2-35.5) g/dl RDW Std Deviation 48.7 H (35.1-43.9) fL Plt Count 318 (163-337) K/mm3 MPV 9.7 (9.4-12.3) fl Neut % (Auto) 87.7 H (34.0-67.9) % Lymph % (Auto) 8.4 L (21.8-53.1) % [place] % (Auto) 3.4 L (5.3-12.2) % Eos % (Auto) 0.1 L (0.8-7.0) Baso % (Auto) 0.1 (0.1-1.2) % Neut # (Auto) 13.36 H (1.78-5.38) K/mm3 Lymph # (Auto) 1.28 L (1.32-3.57) K/mm3 [place] # (Auto) 0.51 (0.30-0.82) K/mm3 Eos # (Auto) 0.01 L (0.04-0.54) K/mm3 Baso # (Auto) 0.01 (0.01-0.08) K/mm3 Manual Slide Review Abnormal smear Sodium 137 (136-145) mEq/L Potassium 4.2 (3.5-5.1) mEq/L Chloride 101 (98-107) mEq/L Carbon Dioxide 31 (21-32) mEq/L Anion Gap 9.2 (5-15) BUN 29 H (7-18) mg/dL Creatinine 1.8 H (0.7-1.3) mg/dL Est Cr Clr Drug Dosing 36.15 mL/min Estimated GFR (MDRD) 36 (>60) mL/min BUN/Creatinine Ratio 16.1 (14-18) Glucose 127 H (83-115) mg/dL Calcium 9.0 (8.5-10.1) mg/dL Magnesium 2.1 (1.8-2.4) mg/dl CK-MB (CK-2) < 0.5 (0-3.6) ng/ml Troponin I 0.084 H* (0.00-0.056) ng/mL Med Orders - Current: Current Medications Acetaminophen (Tylenol) 650 mg PO Q4H PRN PRN Reason: Temperature Last Admin: 11/15/17 04:00 Dose: 650 mg Allopurinol (Zyloprim) 200 mg PO BEDTIME [facility] Last Admin: 11/15/17 21:08 Dose: 200 mg Aspirin (Halfprin) 81 mg PO DAILY [facility] Last Admin: 11/15/17 09:23 Dose: 81 mg Carvedilol (Coreg) 3.125 mg PO BIDMEALS [facility] Last Admin: 11/16/17 06:11 Dose: 3.125 mg Digoxin (Lanoxin) 125 mcg PO MoWeFr@1200 [facility] Last Admin: 11/14/17 11:42 Dose: 125 mcg Ferrous Sulfate (Ferrous Sulfate) 325 mg PO ACBREAKFAST [facility] Last Admin: 11/16/17 06:11 Dose: 325 mg Finasteride (Proscar) 5 mg PO DAILY [facility] Last Admin: 11/15/17 09:23 Dose: 5 mg Furosemide (Lasix) 40 mg PO 1400 [facility] Last Admin: 11/15/17 14:49 Dose: 40 mg Furosemide (Lasix) 80 mg PO DAILY [facility] Guaifenesin/Phenylephrine HCl (Robitussin Dm) 10 ml PO BID [facility] Last Admin: 11/15/17 21:06 Dose: 10 ml Heparin Sodium (Porcine) (Heparin Sodium) 5,000 units SUBCUT Q12HR [facility] Last Admin: 11/15/17 21:07 Dose: 5,000 units Azithromycin 500 mg/ Sodium (Chloride) 250 mls @ 250 mls/hr IV Q24H [facility] Last Admin: 11/15/17 13:40 Dose: 250 mls/hr Isosorbide Mononitrate (Imdur) 15 mg PO BID [facility] Last Admin: 11/15/17 21:07 Dose: 15 mg Nitroglycerin (Nitrostat) 0.4 mg SL Q5M PRN PRN Reason: Chest Pain Last Admin: 11/15/17 04:10 Dose: 0.4 mg Sacubitril/Valsartan [Entresto 24 Mg-26 Mg Tablet] 0 each PO BID [facility] Last Admin: 11/15/17 21:20 Dose: Not Given Simvastatin (Zocor) 40 mg PO BEDTIME [facility] Last Admin: 11/15/17 21:08 Dose: 40 mg Sodium Chloride (Saline Flush) 10 ml FLUSH ASDIRECTED PRN PRN Reason: Keep Vein Open Last Admin: 11/11/17 16:59 Dose: 10 ml Tamsulosin HCl (Flomax) 0.4 mg PO BID [facility] Last Admin: 11/15/17 21:08 Dose: 0.4 mg Discontinued Medications Bumetanide (Bumex) 0.5 mg IVPUSH BID [facility] Last Admin: 11/15/17 09:21 Dose: 0.5 mg Furosemide (Lasix) 40 mg IVPUSH NOW ONE Stop: 11/11/17 16:19 Last Admin: 11/11/17 17:29 Dose: 40 mg Furosemide (Lasix) 40 mg IVPUSH NOW ONE Stop: 11/11/17 19:45 Last Admin: 11/11/17 21:12 Dose: 40 mg Furosemide (Lasix) 40 mg IVPUSH NOW ONE Stop: 11/12/17 08:01 Last Admin: 11/12/17 08:06 Dose: Not Given Furosemide 100 mg/ Sodium (Chloride) 100 mls @ 3 mls/hr IV TITRATE [facility] Last Admin: 11/12/17 12:29 Dose: 3 mls/hr Azithromycin 500 mg/ Sodium (Chloride) 250 mls @ 250 mls/hr IV ONETIME ONE Stop: 11/13/17 14:04 Last Admin: 11/13/17 15:27 Dose: Not Given Azithromycin 500 mg/ Sodium (Chloride) 250 mls @ 250 mls/hr IV Q24H [facility] Last Admin: 11/13/17 15:25 Dose: 250 mls/hr Lorazepam (Ativan) 0.5 mg IVPUSH ONETIME ONE Stop: 11/15/17 04:37 Last Admin: 11/15/17 05:06 Dose: 0.5 mg Morphine Sulfate (Morphine) 0.5 mg IVPUSH ONETIME ONE Stop: 11/15/17 04:36 Last Admin: 11/15/17 04:45 Dose: 0.5 mg Potassium Chloride (Potassium Chloride) 40 meq PO BID [facility] Stop: 11/13/17 21:01 Last Admin: 11/13/17 20:29 Dose: 40 meq - Exam Quality Assessment: DVT Prophylaxis. No: Supplemental Oxygen General: Alert, Oriented, Cooperative, No Acute Distress HEENT: Pupils Equal, EOMI, Mucous Membr. Moist/[place] Neck: Supple Lungs: Normal Respiratory Effort, Decreased Breath Sounds Cardiovascular: Regular Rate, Regular Rhythm GI/Abdominal Exam: Normal Bowel Sounds, Soft, Non-Tender (Male) Exam: Deferred Extremities: Pedal Edema (1+ bilat LE--stable) Peripheral Pulses: 2+: Dorsalis Pedis (L), Dorsalis Pedis (R) Neurological: No New Focal Deficit Psy/Mental Status: Alert, Normal Affect, Normal Mood - Problem List & Annotations (1) Acute exacerbation of CHF (congestive heart failure) SNOMED Code(s): 50339248 Code(s): I50.9 - HEART FAILURE, UNSPECIFIED Status: Acute Priority: High Current Visit: Yes Qualifiers: Congestive heart failure type: unspecified congestive heart failure type Qualified Code(s): I50.9 - Heart failure, unspecified (2) Elevated troponin SNOMED Code(s): 713158661, 337430145 Code(s): R74.8 - ABNORMAL LEVELS OF OTHER SERUM ENZYMES Status: Chronic Priority: Medium Current Visit: Yes (3) Hypoxia SNOMED Code(s): 829063583 Code(s): R09.02 - HYPOXEMIA Status: Resolved Priority: High Current Visit: Yes (4) Renal insufficiency SNOMED Code(s): 215967206 Code(s): N28.9 - DISORDER OF KIDNEY AND URETER, UNSPECIFIED Status: Chronic Priority: Medium Current Visit: Yes - Problem List Review Problem List Initiated/Reviewed/Updated: Yes - My Orders Last 24 Hours: My Active Orders 11/15/17 14:00 Furosemide [Lasix] 40 mg PO 1400 11/16/17 07:21 Chest 2V [CR] Routine 11/16/17 07:33 PRO B-TYPE NATRIUR PEPT,BNPPRO [CHEM] Routine TROPONIN I [CHEM] Routine 11/16/17 07:34 CKMB [CHEM] Routine 11/16/17 09:00 Furosemide [Lasix] 80 mg PO DAILY - Plan Plan:: Impression: Acute: Exacerbation of CHF - NYHA IIIb - Unknown baseline EF - ProBNP 8377-->8504--> 8568 - Now off of lasix drip; bumex IVP BID--> transition to home dosing, heart failure protocol with Is/Os, salt/fluid restrictions - On Carvedilol and Digoxin, and entresto as outpatient Bronchitis, Improved - Mild right atelectasis - WBC is 9.75--> 8.97--> up to 15 today; CRP of 15--> 14.6 - Start Azithromycin 500 mg IV Daily--day 3 - IS as directed and Sputum Cx/Sx - Serial CXR as needed---repeat CXR this morning -Afebrile, RA, VSS. Angina/CAD, acute on chronic - Has CAGB- pain is intermittent not specific triggers - Start Imdur 15 mg po BID to hod if SBP is < 100 or HR < 60 - PRN Nitro for chest pain, also morphine and ativan--were helpful last night. - Trops stable, CKMB negative Generalized weakness - PT/OT Chronic: HLD HTN BPH S/P AICD CAD/CABG RUTHIE, no CPAP Plan: He remains clinically stable Continue current treatment 2D echo pending final report Routine AM Labs DVT/GI prophylaxis CM for d/c planning---DC home today vs tomorrow pending CXR review as has elevated WBC today, clinically better than yesterday. LOS anticipate >96hrs due to slow response to treatment with CHF exacerbation. Patient is DNR/DNI code status Vanessa Goodwin PA-C is PCP with [facility].
[2017-11-16] MEDS: Aspirin 81 MG Tab.EC PO SCH (08:58)
[2017-11-16] MEDS: guaiFENesin/Dextromethorphan 100-10 MG/5 ML Soln 5 ML Cup PO SCH ×2 (08:58→22:36)
[2017-11-16] MEDS: Tamsulosin 0.4 MG Cap.ER PO SCH ×2 (08:58→22:35)
[2017-11-16] MEDS: Isosorbide Mononitrate 30 MG Tab.ER PO SCH (09:00)
[2017-11-16] MEDS: Finasteride 5 MG Tab PO SCH (09:01)
[2017-11-16] MEDS: Heparin Sodium 5,000 Units/ML Vial SUBCUT SCH ×2 (09:02→22:40)
[2017-11-16] MEDS: Furosemide 40 MG Tab PO SCH ×3 (09:24→18:50)
--- NOTE | 2017-11-16 09:24 | CR ---
Chest: Two views of the chest were obtained. Comparison: Prior chest x-ray of 11/13/17. Heart is enlarged. Tortuous thoracic aorta is seen. Sternotomy noted for prior CABG. Minimal atelectasis or scarring is seen within the right lateral costophrenic angle. Lungs otherwise are clear. Right shoulder prosthesis is noted. Stable degenerative change is noted within the left shoulder. Mild degenerative change is scattered within the spine. Impression: 1. Incidental findings. Nothing acute is appreciated. Diagnostic code #2
--- NOTE | 2017-11-16 12:06 | PCM.SN ---
- Free Text/Narrative Note: Patient with episode of chest pain this morning radiating to left shoulder while eating breakfast this morning. Reviewed case with Dr. Garay. Patient is in agreement to stay for further monitoring. Will schedule lexiscan stress test for Sunday. Will start Ranexa, DC indur as b/p is 90's/60's. Will remain inpatient for further eval/tx and monitoring of acute on chronic angina.
[2017-11-16] MEDS: Azithromycin 500 MG in Sodium Chloride 0.9% 250 ML IV SCH (12:52)
[2017-11-16] MEDS: Digoxin 125 MCG Tab PO SCH (12:52)
[2017-11-16] MEDS: Docusate Sodium 100 MG Cap PO SCH (12:52)
[2017-11-16] MEDS: Sacubitril/Valsartan [Entresto 24 Mg-26 Mg Tablet] PO SCH ×2 (12:53→22:35)
[2017-11-16] MEDS: Nitroglycerin 0.4 MG Tab.SL SL PRN (15:34)
[2017-11-16] MEDS: Allopurinol 100 MG Tab PO SCH (22:36)
[2017-11-16] MEDS: Simvastatin 40 MG Tab PO SCH (22:36)
[2017-11-17] MEDS: Carvedilol 3.125 MG Tab PO SCH ×2 (06:31→16:34)
[2017-11-17] MEDS: Ferrous Sulfate 325 MG Tab PO SCH (06:31)
--- NOTE | 2017-11-17 07:01 | PCM.PN ---
- General Info Date of Service: 11/17/17 Admission Dx/Problem (Free Text): Congestive Heart Failure Subjective Update: Follow Up Functional Status: Reports: Pain Controlled, Tolerating Diet, Ambulating, Urinating. Denies: New Symptoms - Review of Systems General: Denies: Fever, Weakness, Fatigue, Malaise, Chills HEENT: Reports: No Symptoms Pulmonary: Denies: Shortness of Breath Cardiovascular: Denies: Chest Pain, Palpitations, Dyspnea on Exertion, Edema Gastrointestinal: Denies: Abdominal Pain, Nausea, Vomiting Genitourinary: Reports: No Symptoms Musculoskeletal: Reports: No Symptoms Skin: Denies: Cyanosis, Mottled, Pallor, Diaphoresis, Rash Neurological: Denies: Confusion, Difficulty Walking, Weakness, Gait Disturbance Psychiatric: Denies: Depression, Anxiety, Agitation, Hallucinations Systems Review Comment:: No significant overnight or acute issues. He is doing just fine. No reports of chest or shoulder pain. No new complaints. - Patient Data Vitals - Most Recent: Last Vital Signs Temp 36.9 C 11/16/17 23:53 Pulse 72 11/17/17 06:31 Resp 17 11/16/17 23:53 BP 112/58 L 11/17/17 06:31 Pulse Ox 94 L 11/16/17 23:53 Weight - Most Recent: 104.598 kg I&O - Last 24 Hours: Intake & Output 11/16/17 11/17/17 11/17/17 22:59 06:59 14:59 Intake Total 1090 300 Output Total 800 800 Balance 290 -500 Lab Results Last 24 Hours: Laboratory Results - last 24 hr 11/16/17 11/16/17 Range/Units 05:50 05:50 Manual Slide Review Abnormal smear CK-MB (CK-2) 0.9 (0-3.6) ng/ml Troponin I 0.084 H* (0.00-0.056) ng/mL NT-Pro-B Natriuret Pep 60710 H (0-450) pg/mL Med Orders - Current: Current Medications Acetaminophen (Tylenol) 650 mg PO Q4H PRN PRN Reason: Temperature Last Admin: 11/15/17 04:00 Dose: 650 mg Allopurinol (Zyloprim) 200 mg PO BEDTIME [facility] Last Admin: 11/16/17 22:36 Dose: 200 mg Aspirin (Halfprin) 81 mg PO DAILY [facility] Last Admin: 11/16/17 08:58 Dose: 81 mg Carvedilol (Coreg) 3.125 mg PO BIDMEALS [facility] Last Admin: 11/17/17 06:31 Dose: 3.125 mg Digoxin (Lanoxin) 125 mcg PO MoWeFr@1200 [facility] Last Admin: 11/16/17 12:52 Dose: 125 mcg Docusate Sodium (Colace) 100 mg PO DAILY [facility] Last Admin: 11/16/17 12:52 Dose: 100 mg Ferrous Sulfate (Ferrous Sulfate) 325 mg PO ACBREAKFAST [facility] Last Admin: 11/17/17 06:31 Dose: 325 mg Finasteride (Proscar) 5 mg PO DAILY [facility] Last Admin: 11/16/17 09:01 Dose: 5 mg Furosemide (Lasix) 40 mg PO 1400 [facility] Last Admin: 11/16/17 18:50 Dose: Not Given Furosemide (Lasix) 80 mg PO DAILY [facility] Last Admin: 11/16/17 09:24 Dose: 40 mg Guaifenesin/Phenylephrine HCl (Robitussin Dm) 10 ml PO BID [facility] Last Admin: 11/16/17 22:36 Dose: 10 ml Heparin Sodium (Porcine) (Heparin Sodium) 5,000 units SUBCUT Q12HR [facility] Last Admin: 11/16/17 22:40 Dose: 5,000 units Azithromycin 500 mg/ Sodium (Chloride) 250 mls @ 250 mls/hr IV Q24H [facility] Last Admin: 11/16/17 12:52 Dose: 250 mls/hr Nitroglycerin (Nitrostat) 0.4 mg SL Q5M PRN PRN Reason: Chest Pain Last Admin: 11/16/17 15:34 Dose: 0.4 mg Sacubitril/Valsartan [Entresto 24 Mg-26 Mg Tablet] 0 each PO BID [facility] Last Admin: 11/16/17 22:35 Dose: Not Given Ranolazine (Ranexa) 500 mg PO BID [facility] Last Admin: 11/16/17 22:36 Dose: 500 mg Simvastatin (Zocor) 40 mg PO BEDTIME [facility] Last Admin: 11/16/17 22:36 Dose: 40 mg Sodium Chloride (Saline Flush) 10 ml FLUSH ASDIRECTED PRN PRN Reason: Keep Vein Open Last Admin: 11/11/17 16:59 Dose: 10 ml Tamsulosin HCl (Flomax) 0.4 mg PO BID [facility] Last Admin: 11/16/17 22:35 Dose: 0.4 mg Discontinued Medications Bumetanide (Bumex) 0.5 mg IVPUSH BID [facility] Last Admin: 11/15/17 09:21 Dose: 0.5 mg Furosemide (Lasix) 40 mg IVPUSH NOW ONE Stop: 11/11/17 16:19 Last Admin: 11/11/17 17:29 Dose: 40 mg Furosemide (Lasix) 40 mg IVPUSH NOW ONE Stop: 11/11/17 19:45 Last Admin: 11/11/17 21:12 Dose: 40 mg Furosemide (Lasix) 40 mg IVPUSH NOW ONE Stop: 11/12/17 08:01 Last Admin: 11/12/17 08:06 Dose: Not Given Furosemide 100 mg/ Sodium (Chloride) 100 mls @ 3 mls/hr IV TITRATE [facility] Last Admin: 11/12/17 12:29 Dose: 3 mls/hr Azithromycin 500 mg/ Sodium (Chloride) 250 mls @ 250 mls/hr IV ONETIME ONE Stop: 11/13/17 14:04 Last Admin: 11/13/17 15:27 Dose: Not Given Azithromycin 500 mg/ Sodium (Chloride) 250 mls @ 250 mls/hr IV Q24H [facility] Last Admin: 11/13/17 15:25 Dose: 250 mls/hr Isosorbide Mononitrate (Imdur) 15 mg PO BID [facility] Last Admin: 11/16/17 09:00 Dose: Not Given Lorazepam (Ativan) 0.5 mg IVPUSH ONETIME ONE Stop: 11/15/17 04:37 Last Admin: 11/15/17 05:06 Dose: 0.5 mg Morphine Sulfate (Morphine) 0.5 mg IVPUSH ONETIME ONE Stop: 11/15/17 04:36 Last Admin: 11/15/17 04:45 Dose: 0.5 mg Potassium Chloride (Potassium Chloride) 40 meq PO BID [facility] Stop: 11/13/17 21:01 Last Admin: 11/13/17 20:29 Dose: 40 meq - Exam General: Alert, Oriented, Cooperative, No Acute Distress HEENT: Pupils Reactive, EOMI, Mucous Membr. Moist/[place] Neck: Supple, Trachea Midline, No JVD Lungs: Normal Respiratory Effort, Decreased Breath Sounds Cardiovascular: Regular Rate, Regular Rhythm GI/Abdominal Exam: Normal Bowel Sounds, Soft, Non-Tender, No Organomegaly, No Distention, No Abnormal Bruit, No Mass (Male) Exam: Deferred Back Exam: Normal Inspection, Decreased Range of Motion Extremities: Normal Inspection, Normal Range of Motion, Non-Tender, No Pedal Edema, Normal Capillary Refill Peripheral Pulses: 2+: Dorsalis Pedis (L), Dorsalis Pedis (R) Skin: Warm, Dry, Intact Neurological: No New Focal Deficit Psy/Mental Status: Alert, Normal Affect, Normal Mood - Problem List Review Problem List Initiated/Reviewed/Updated: Yes - My Orders Last 24 Hours: My Active Orders 11/16/17 16:22 EKG Documentation Completion [RC] STAT 11/19/17 07:00 CBC W/O DIFF,HEMOGRAM [HEME] MOTH@0700 11/22/17 07:00 CBC W/O DIFF,HEMOGRAM [HEME] MOTH@0700 11/26/17 07:00 CBC W/O DIFF,HEMOGRAM [HEME] MOTH@0700 11/29/17 07:00 CBC W/O DIFF,HEMOGRAM [HEME] MOTH@0700 12/03/17 07:00 CBC W/O DIFF,HEMOGRAM [HEME] MOTH@0700 - Plan Plan:: Impression: Acute: Exacerbation of CHF - NYHA IIIb - Unknown baseline EF - ProBNP 8377-->83648; repeat in AM - Now off of lasix drip; resume oral lasix and continue heart failure protocol with Is/Os, salt/fluid restrictions - On Carvedilol and Digoxin, and entresto as outpatient - 2D echo: LVEF 55-60% w/o RWMA Bronchitis, Stable - Mild right atelectasis - WBC is 9.75--> 11.7 today; CRP of 15--> 16.1; non today - Continue Azithromycin 500 mg IV Daily- day 4 - IS as directed and Sputum Cx/Sx - Serial CXR as needed---repeat CXR this morning - Afebrile, RA, VSS Angina/CAD - Acute on chronic - Has CAGB- pain is intermittent not specific triggers - Start Imdur 15 mg po BID to hod if SBP is < 100 or HR < 60 - PRN Nitro for chest pain, also morphine and ativan--were helpful last night. - Trops stable, CKMB negative Generalized weakness - PT/OT Intermittent Bradycardia and NSVT - HRs dropping tin the low 30s and has had a few runs of NS V-Tach - Pacer needs interrogation after discharge - Will keep monitoring his e-lytes - No need to change current rate control meds Chronic: HLD HTN BPH S/P AICD CAD/CABG RUTHIE, no CPAP Plan: He is otherwise clinically stable Continue current treatment Routine AM Labs DVT/GI prophylaxis CM for d/c planning Sunday after stress test Patient is DNR/DNI code status. Vanessa Goodwin PA-C is PCP with [facility] LOS > 96hrs due to slow response to treatment with CHF exacerbation, Acute on Chronic CAD and Stress Test Sunday (not available on s)
[2017-11-17] MEDS: Aspirin 81 MG Tab.EC PO SCH (09:20)
[2017-11-17] MEDS: guaiFENesin/Dextromethorphan 100-10 MG/5 ML Soln 5 ML Cup PO SCH ×2 (09:20→22:28)
[2017-11-17] MEDS: Docusate Sodium 100 MG Cap PO SCH (09:21)
[2017-11-17] MEDS: Heparin Sodium 5,000 Units/ML Vial SUBCUT SCH ×2 (09:21→22:26)
[2017-11-17] MEDS: Finasteride 5 MG Tab PO SCH (09:21)
[2017-11-17] MEDS: Tamsulosin 0.4 MG Cap.ER PO SCH ×2 (09:21→22:28)
[2017-11-17] MEDS: Furosemide 40 MG Tab PO SCH ×2 (09:21→13:04)
[2017-11-17] MEDS: Sacubitril/Valsartan [Entresto 24 Mg-26 Mg Tablet] PO SCH ×2 (10:25→22:30)
[2017-11-17] MEDS: Azithromycin 500 MG in Sodium Chloride 0.9% 250 ML IV SCH (13:04)
[2017-11-17] MEDS: Simvastatin 40 MG Tab PO SCH (22:29)
[2017-11-17] MEDS: Allopurinol 100 MG Tab PO SCH (22:29)
[2017-11-18] MEDS: Ferrous Sulfate 325 MG Tab PO SCH (06:47)
[2017-11-18] MEDS: Carvedilol 3.125 MG Tab PO SCH (06:49)
[2017-11-18] MEDS: guaiFENesin/Dextromethorphan 100-10 MG/5 ML Soln 5 ML Cup PO SCH ×2 (09:43→21:01)
[2017-11-18] MEDS: Furosemide 40 MG Tab PO SCH ×2 (09:44→14:30)
[2017-11-18] MEDS: Finasteride 5 MG Tab PO SCH (09:44)
[2017-11-18] MEDS: Heparin Sodium 5,000 Units/ML Vial SUBCUT SCH ×2 (09:45→20:58)
[2017-11-18] MEDS: Aspirin 81 MG Tab.EC PO SCH (09:45)
[2017-11-18] MEDS: Docusate Sodium 100 MG Cap PO SCH (09:45)
[2017-11-18] MEDS: Sacubitril/Valsartan [Entresto 24 Mg-26 Mg Tablet] PO SCH ×2 (09:45→21:01)
[2017-11-18] MEDS: Tamsulosin 0.4 MG Cap.ER PO SCH ×2 (09:45→21:00)
[2017-11-18] MEDS ORDERED: Bisacodyl 5 MG Tab PO PRN (09:49)
[2017-11-18] MEDS: Azithromycin 500 MG in Sodium Chloride 0.9% 250 ML IV SCH (13:09)
[2017-11-18] MEDS ORDERED: Amiodarone 200 MG Tab PO ONE ×2 (16:43→16:50)
--- NOTE | 2017-11-18 16:53 | PCM.PN ---
- General Info Date of Service: 11/18/17 Admission Dx/Problem (Free Text): Congestive Heart Failure Subjective Update: Follow Up Functional Status: Reports: Pain Controlled, Tolerating Diet, Ambulating, Urinating. Denies: New Symptoms - Review of Systems General: Denies: Fever, Weakness, Fatigue, Malaise HEENT: Reports: No Symptoms Pulmonary: Denies: Shortness of Breath, Cough Cardiovascular: Denies: Chest Pain, Palpitations, Dyspnea on Exertion, Edema Gastrointestinal: Denies: Abdominal Pain, Nausea, Vomiting Genitourinary: Reports: No Symptoms Musculoskeletal: Reports: No Symptoms Skin: Denies: Cyanosis, Mottled, Pallor, Diaphoresis Neurological: Denies: Confusion, Difficulty Walking, Weakness, Gait Disturbance Psychiatric: Denies: Depression, Anxiety, Agitation, Hallucinations Systems Review Comment:: He had a good night. No acute issues. ICU nurse reports more frequent PVCs, Short runs of NS V-Tach and now Sustained Monomorphic V-Tach. He reports no chest pain or shortness of breath. - Patient Data Vitals - Most Recent: Last Vital Signs Temp 36.7 C 11/18/17 08:14 Pulse 60 11/18/17 12:19 Resp 24 H 11/18/17 08:14 BP 104/66 11/18/17 12:19 Pulse Ox 96 11/18/17 12:19 Weight - Most Recent: 104.734 kg I&O - Last 24 Hours: Intake & Output 11/18/17 11/18/17 11/18/17 06:59 14:59 22:59 Intake Total 100 180 Output Total 800 Balance -700 180 Lab Results Last 24 Hours: Laboratory Results - last 24 hr 11/18/17 11/18/17 11/18/17 Range/Units 05:37 05:37 05:37 WBC 10.47 H (4.23-9.07) K/mm3 RBC 3.06 L (4.63-6.08) M/mm3 Hgb 9.4 L (13.7-17.5) gm/L Hct 29.6 L (40.1-51.0) % MCV 96.7 H (79.0-92.2) fl MCH 30.7 (25.7-32.2) pg MCHC 31.8 L (32.2-35.5) g/dl RDW Std Deviation 47.7 H (35.1-43.9) fL Plt Count 323 (163-337) K/mm3 MPV 9.7 (9.4-12.3) fl Neut % (Auto) 83.7 H (34.0-67.9) % Lymph % (Auto) 11.1 L (21.8-53.1) % Garrett % (Auto) 4.3 L (5.3-12.2) % Eos % (Auto) 0.5 L (0.8-7.0) Baso % (Auto) 0.0 L (0.1-1.2) % Neut # (Auto) 8.77 H (1.78-5.38) K/mm3 Lymph # (Auto) 1.16 L (1.32-3.57) K/mm3 Garrett # (Auto) 0.45 (0.30-0.82) K/mm3 Eos # (Auto) 0.05 (0.04-0.54) K/mm3 Baso # (Auto) 0.00 L (0.01-0.08) K/mm3 Sodium 139 (136-145) mEq/L Potassium 3.6 (3.5-5.1) mEq/L Chloride 103 (98-107) mEq/L Carbon Dioxide 27 (21-32) mEq/L Anion Gap 12.6 (5-15) BUN 26 H (7-18) mg/dL Creatinine 1.3 (0.7-1.3) mg/dL Est Cr Clr Drug Dosing 50.06 mL/min Estimated GFR (MDRD) 53 (>60) mL/min BUN/Creatinine Ratio 20.0 H (14-18) Glucose 107 (83-115) mg/dL Calcium 8.9 (8.5-10.1) mg/dL Magnesium 1.9 (1.8-2.4) mg/dl NT-Pro-B Natriuret Pep 7545 H (0-450) pg/mL Free T4 (0.76-1.46) ng/dL TSH 3rd Generation (0.358-3.74) uIU/mL 11/18/17 Range/Units 05:37 WBC (4.23-9.07) K/mm3 RBC (4.63-6.08) M/mm3 Hgb (13.7-17.5) gm/L Hct (40.1-51.0) % MCV (79.0-92.2) fl MCH (25.7-32.2) pg MCHC (32.2-35.5) g/dl RDW Std Deviation (35.1-43.9) fL Plt Count (163-337) K/mm3 MPV (9.4-12.3) fl Neut % (Auto) (34.0-67.9) % Lymph % (Auto) (21.8-53.1) % Garrett % (Auto) (5.3-12.2) % Eos % (Auto) (0.8-7.0) Baso % (Auto) (0.1-1.2) % Neut # (Auto) (1.78-5.38) K/mm3 Lymph # (Auto) (1.32-3.57) K/mm3 Garrett # (Auto) (0.30-0.82) K/mm3 Eos # (Auto) (0.04-0.54) K/mm3 Baso # (Auto) (0.01-0.08) K/mm3 Sodium (136-145) mEq/L Potassium (3.5-5.1) mEq/L Chloride (98-107) mEq/L Carbon Dioxide (21-32) mEq/L Anion Gap (5-15) BUN (7-18) mg/dL Creatinine (0.7-1.3) mg/dL Est Cr Clr Drug Dosing mL/min Estimated GFR (MDRD) (>60) mL/min BUN/Creatinine Ratio (14-18) Glucose (83-115) mg/dL Calcium (8.5-10.1) mg/dL Magnesium (1.8-2.4) mg/dl NT-Pro-B Natriuret Pep (0-450) pg/mL Free T4 1.27 (0.76-1.46) ng/dL TSH 3rd Generation 3.441 (0.358-3.74) uIU/mL Med Orders - Current: Current Medications Acetaminophen (Tylenol) 650 mg PO Q4H PRN PRN Reason: Temperature Last Admin: 11/15/17 04:00 Dose: 650 mg Allopurinol (Zyloprim) 200 mg PO BEDTIME [facility] Last Admin: 11/17/17 22:29 Dose: 200 mg Amiodarone HCl (Cordarone) 200 mg PO ONETIME ONE Stop: 11/18/17 16:51 Amiodarone HCl (Cordarone) 200 mg PO BID [facility] Aspirin (Halfprin) 81 mg PO DAILY [facility] Last Admin: 11/18/17 09:45 Dose: 81 mg Bisacodyl (Dulcolax) 10 mg PO DAILY PRN PRN Reason: Constipation Last Admin: 11/18/17 14:30 Dose: 10 mg Bumetanide (Bumex) 0.5 mg IVPUSH ONETIME ONE Stop: 11/18/17 18:01 Docusate Sodium (Colace) 100 mg PO DAILY [facility] Last Admin: 11/18/17 09:45 Dose: 100 mg Ferrous Sulfate (Ferrous Sulfate) 325 mg PO ACBREAKFAST [facility] Last Admin: 11/18/17 06:47 Dose: 325 mg Finasteride (Proscar) 5 mg PO DAILY [facility] Last Admin: 11/18/17 09:44 Dose: 5 mg Furosemide (Lasix) 40 mg PO 1400 [facility] Last Admin: 11/18/17 14:30 Dose: 40 mg Furosemide (Lasix) 80 mg PO DAILY [facility] Last Admin: 11/18/17 09:44 Dose: 80 mg Guaifenesin/Phenylephrine HCl (Robitussin Dm) 10 ml PO BID [facility] Last Admin: 11/18/17 09:43 Dose: 10 ml Heparin Sodium (Porcine) (Heparin Sodium) 5,000 units SUBCUT Q12HR [facility] Last Admin: 11/18/17 09:45 Dose: 5,000 units Nitroglycerin (Nitrostat) 0.4 mg SL Q5M PRN PRN Reason: Chest Pain Last Admin: 11/16/17 15:34 Dose: 0.4 mg Sacubitril/Valsartan [Entresto 24 Mg-26 Mg Tablet] 0 each PO BID [facility] Last Admin: 11/18/17 09:45 Dose: 1 each Ranolazine (Ranexa) 500 mg PO BID [facility] Last Admin: 11/18/17 09:44 Dose: 500 mg Simvastatin (Zocor) 40 mg PO BEDTIME [facility] Last Admin: 11/17/17 22:29 Dose: 40 mg Sodium Chloride (Saline Flush) 10 ml FLUSH ASDIRECTED PRN PRN Reason: Keep Vein Open Last Admin: 11/11/17 16:59 Dose: 10 ml Tamsulosin HCl (Flomax) 0.4 mg PO BID [facility] Last Admin: 11/18/17 09:45 Dose: 0.4 mg Discontinued Medications Amiodarone HCl (Cordarone) 800 mg PO DAILY [facility] Amiodarone HCl (Cordarone) 800 mg PO ONETIME ONE Stop: 11/18/17 16:44 Bumetanide (Bumex) 0.5 mg IVPUSH BID [facility] Last Admin: 11/15/17 09:21 Dose: 0.5 mg Carvedilol (Coreg) 3.125 mg PO BIDMEALS [facility] Last Admin: 11/18/17 06:49 Dose: 3.125 mg Digoxin (Lanoxin) 125 mcg PO MoWeFr@1200 [facility] Last Admin: 11/16/17 12:52 Dose: 125 mcg Furosemide (Lasix) 40 mg IVPUSH NOW ONE Stop: 11/11/17 16:19 Last Admin: 11/11/17 17:29 Dose: 40 mg Furosemide (Lasix) 40 mg IVPUSH NOW ONE Stop: 11/11/17 19:45 Last Admin: 11/11/17 21:12 Dose: 40 mg Furosemide (Lasix) 40 mg IVPUSH NOW ONE Stop: 11/12/17 08:01 Last Admin: 11/12/17 08:06 Dose: Not Given Furosemide 100 mg/ Sodium (Chloride) 100 mls @ 3 mls/hr IV TITRATE [facility] Last Admin: 11/12/17 12:29 Dose: 3 mls/hr Azithromycin 500 mg/ Sodium (Chloride) 250 mls @ 250 mls/hr IV ONETIME ONE Stop: 11/13/17 14:04 Last Admin: 11/13/17 15:27 Dose: Not Given Azithromycin 500 mg/ Sodium (Chloride) 250 mls @ 250 mls/hr IV Q24H [facility] Last Admin: 11/13/17 15:25 Dose: 250 mls/hr Azithromycin 500 mg/ Sodium (Chloride) 250 mls @ 250 mls/hr IV Q24H [facility] Last Admin: 11/18/17 13:09 Dose: 250 mls/hr Isosorbide Mononitrate (Imdur) 15 mg PO BID [facility] Last Admin: 11/16/17 09:00 Dose: Not Given Lorazepam (Ativan) 0.5 mg IVPUSH ONETIME ONE Stop: 11/15/17 04:37 Last Admin: 11/15/17 05:06 Dose: 0.5 mg Morphine Sulfate (Morphine) 0.5 mg IVPUSH ONETIME ONE Stop: 11/15/17 04:36 Last Admin: 11/15/17 04:45 Dose: 0.5 mg Potassium Chloride (Potassium Chloride) 40 meq PO BID [facility] Stop: 11/13/17 21:01 Last Admin: 11/13/17 20:29 Dose: 40 meq - Exam General: Alert, Oriented, Cooperative, No Acute Distress HEENT: Pupils Equal, Pupils Reactive, EOMI, Mucous Membr. Moist/[place] Neck: Supple, Trachea Midline, No JVD, No Thyromegaly Lungs: Normal Respiratory Effort, Decreased Breath Sounds (at the bases), Crackles Cardiovascular: Regular Rate, Regular Rhythm GI/Abdominal Exam: Normal Bowel Sounds, Soft, Non-Tender, No Organomegaly, No Distention, No Abnormal Bruit (Male) Exam: Deferred Back Exam: Normal Inspection, Decreased Range of Motion Extremities: Normal Inspection, Normal Range of Motion, Non-Tender, No Pedal Edema, Normal Capillary Refill Peripheral Pulses: 2+: Dorsalis Pedis (L), Dorsalis Pedis (R) Skin: Warm, Dry, Intact Neurological: No New Focal Deficit Psy/Mental Status: Alert, Normal Affect, Normal Mood - Problem List Review Problem List Initiated/Reviewed/Updated: Yes - My Orders Last 24 Hours: My Active Orders 11/18/17 09:49 Bisacodyl [Dulcolax] 10 mg PO DAILY PRN 11/18/17 16:50 Amiodarone [Cordarone] 200 mg PO ONETIME ONE 11/18/17 18:00 Bumetanide [Bumex] 0.5 mg IVPUSH ONETIME ONE 11/18/17 21:00 Amiodarone [Cordarone] 200 mg PO BID 11/19/17 07:00 CBC W/O DIFF,HEMOGRAM [HEME] MOTH@0700 11/22/17 07:00 CBC W/O DIFF,HEMOGRAM [HEME] MOTH@0700 11/26/17 07:00 CBC W/O DIFF,HEMOGRAM [HEME] MOTH@0700 11/29/17 07:00 CBC W/O DIFF,HEMOGRAM [HEME] MOTH@0700 12/03/17 07:00 CBC W/O DIFF,HEMOGRAM [HEME] MOTH@0700 - Plan Plan:: Impression: Acute: Sustained Monomorphic V-Tach - TFT if normal will start Amiodarone - Will d/c Azithromycin and Digoxin to avoid toxicity with Amiodarone - Hold carvedilol - Continue to monitor Intermittent Bradycardia and NSVT - HRs dropping tin the low 30s and has had a few runs of NS V-Tach - Pacer needs interrogation after discharge - Will keep monitoring his e-lytes - No need to change current rate control meds Exacerbation of CHF, Improved - NYHA IIIb - Unknown baseline EF - ProBNP 8377-->03067-->7545 - Now off of lasix drip; resume oral lasix and continue heart failure protocol with Is/Os, salt/fluid restrictions - On Carvedilol and Digoxin, and entresto as outpatient; will d/c Azithromycin and Digoxin to avoid toxicity with Amiodarone - 2D echo: LVEF 55-60% w/o RWMA Angina/CAD - Acute on chronic - Has CAGB- pain is intermittent not specific triggers - Start Imdur 15 mg po BID to hod if SBP is < 100 or HR < 60 - PRN Nitro for chest pain, also morphine and ativan--were helpful last night. - Trops stable, CKMB negative Generalized weakness - Continue PT/OT Intermittent Bradycardia - HRs dropping tin the low 30s and has had a few runs of NS V-Tach - Pacer needs interrogation after discharge - Stable e-lytes - No need to change current rate control meds Resolved: S/p Bronchitis - Mild right atelectasis - WBC is 9.75--> 11.7 today; CRP of 15--> 16.1; non today - Will d/c Azithromycin 500 mg IV Daily- day 5 - IS as directed and Sputum Cx/Sx - Serial CXR as needed---repeat CXR this morning - Afebrile, RA, VSS Chronic: HLD HTN BPH S/P AICD CAD/CABG RUTHIE, no CPAP Plan: He remains clinically stable Continue current treatment Routine AM Labs DVT/GI prophylaxis CM for d/c planning Sunday after stress test Patient is DNR/DNI code status. Vanessa Goodwin PA-C is PCP with [facility] LOS > 96hrs pending Stress Test tomorrow (not available on weekends)
[2017-11-18] MEDS ORDERED: Bumetanide 1 MG/4 ML MDV IVPUSH ONE (18:00)
[2017-11-18] MEDS: Simvastatin 40 MG Tab PO SCH (21:00)
[2017-11-18] MEDS: Allopurinol 100 MG Tab PO SCH (21:00)
[2017-11-18] MEDS: Amiodarone 200 MG Tab PO SCH (21:00)
[2017-11-19] MEDS: Ferrous Sulfate 325 MG Tab PO SCH (06:02)
[2017-11-19] MEDS ORDERED: Sodium Chloride 0.9% 10 ML Syringe FLUSH SCH (07:30)
[2017-11-19] MEDS ORDERED: Amiodarone 200 MG Tab PO SCH (09:00)
--- NOTE | 2017-11-19 09:01 | PCM.SN ---
- Free Text/Narrative Note: Lexiscan stress test completed this morning; patient asymptomatic with injection. Asymptomatic during testing. Patient with LBBB on baseline so testing is inconclusive at this time, awaiting nuclear imaging results. Family to discuss placement with SW today. Otherwise patient doing well this morning; no CP overnight. Slept well. Exam: General: A&O x 3, pleasant, nervous for testing HEENT: unremarkable other than CHEESH-NA Heart: RRR, edema to pedal area is 1+ bilat, edema to calves that was present last week is resolved. Lungs: CTAB Abdomen: Soft, NT/ND Extremities: as above edema Neuro: A&O x 3, pleasant, CHEESH-NA Plan: Stress test today, part 1 completed and is inconclusive Family to discuss placement with SW today; DC pending stress test results and decision for placement.
[2017-11-19] MEDS: guaiFENesin/Dextromethorphan 100-10 MG/5 ML Soln 5 ML Cup PO SCH (09:40)
[2017-11-19] MEDS: Heparin Sodium 5,000 Units/ML Vial SUBCUT SCH (09:40)
[2017-11-19] MEDS: Tamsulosin 0.4 MG Cap.ER PO SCH (09:40)
[2017-11-19] MEDS: Aspirin 81 MG Tab.EC PO SCH (09:41)
[2017-11-19] MEDS: Amiodarone 200 MG Tab PO SCH (09:41)
[2017-11-19] MEDS: Docusate Sodium 100 MG Cap PO SCH (09:41)
[2017-11-19] MEDS: Furosemide 40 MG Tab PO SCH ×2 (09:41→15:40)
[2017-11-19] MEDS: Finasteride 5 MG Tab PO SCH (09:41)
[2017-11-19] MEDS: Sacubitril/Valsartan [Entresto 24 Mg-26 Mg Tablet] PO SCH (09:42)
[2017-11-19] MEDS ORDERED: Potassium Chloride 20 MEQ Tab.ER PO ONE (10:38)
--- NOTE | 2017-11-19 13:38 | NM ---
Cardiolite Lexiscan study Technique: Patient was stressed utilizing Lexiscan protocol. Stress dose of technetium 99m Cardiolite was 11.3 mCi. Rest dose was 30.6 mCi. SPECT imaging obtained in 3 planes for both portions of the study. Study was also gated. Low-dose chest CT performed to allow for attenuation correction. Comparison: Previous Cardiolite study of 03/05/13. Findings: Inferior wall defect is identified. 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 I do not see any definite reversible type change. Ejection fraction is low at 28%. Impression: 1. 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 This appears fairly stable from previous exam. 2. Low ejection fraction at 28% compared to 45% on previous study. 3. No definite findings of reversible ischemia seen. Diagnostic code #3
--- NOTE | 2017-11-19 14:46 | PCM.DCSUM1 ---
Discharge Summary - Hospital Course Free Text/Narrative:: 82 year old male with reported changes in his medication s/p gallbladder removal. he stated that he was not restarted on his heart failure meds. The procedure was performed at the end of September. A chest pain evaluation followed in the ED on [facility]. Recently he has been seen by his PCP November 07 for increasing SOB. It appears that his functional class for CHF is IIIb, He has been seen by Dr Church in [place] for his cardiology needs, the last visit was not clarified. PCP is Vanessa Goodwin PA-C with [facility]. - Discharge Data Discharge Date: 11/19/17 (admit date 11/11/17) Discharge Disposition: Home, W Home Health Agency 06 Condition: Fair - Discharge Diagnosis/Problem(s) (1) Acute exacerbation of CHF (congestive heart failure) SNOMED Code(s): 17827025 ICD Code: I50.9 - HEART FAILURE, UNSPECIFIED Status: Acute Priority: High Current Visit: Yes Qualifiers: Congestive heart failure type: unspecified congestive heart failure type Qualified Code(s): I50.9 - Heart failure, unspecified (2) Elevated troponin SNOMED Code(s): 055828809, 786507644 ICD Code: R74.8 - ABNORMAL LEVELS OF OTHER SERUM ENZYMES Status: Chronic Priority: Medium Current Visit: Yes (3) Hypoxia SNOMED Code(s): 039313515 ICD Code: R09.02 - HYPOXEMIA Status: Resolved Priority: High Current Visit: Yes (4) Renal insufficiency SNOMED Code(s): 023863606 ICD Code: N28.9 - DISORDER OF KIDNEY AND URETER, UNSPECIFIED Status: Chronic Priority: Medium Current Visit: Yes - Patient Summary/Data Operative Procedure(s) Performed: None Complications: None Consults: Consultations 11/14/17 09:01 Consult to Occupational Therapy [OT Evaluation and Treatment] [CONS] Routine PT Evaluation and Treatment [CONS] Routine Labs Pending at D/C: None Recommended Follow-up Testing/Procedures: Patient DC instructions: Daily weight. Keep a record for your doctor's appointments. Outpatient physical therapy. Order and face sheet faxed to [facility] per patients request. (this can be done before Home health through the [facility] takes place. Phone number for [facility] [employer] is [phone], Address [address] [place] [address] [address] fluid restrictions 1800 mls in 24 hour period Follow up with Cardiology as soon as able to follow for heart failure, amiodarone start. Follow up with PCP, Vanessa Goodwin, by Sunday of this week. Home Health with physical therapy, nursing and home safety evaluation (Nursing Please fax H&P and discharge paper work to the [facility] when discharge at [phone] (Home Health will be through the [facility]) phone # [phone] Planned Operative Procedure(s) after DC: None Hospital Course: Impression: Acute: Sustained Monomorphic V-Tach - TFT normal --will start Amiodarone - Will d/c Azithromycin and Digoxin to avoid toxicity with Amiodarone - Hold carvedilol---Will DC at discharge, f/up with PCP and Cardiology as outpatient - Continue to monitor Intermittent Bradycardia and NSVT - HRs dropping to the low 30s and has had a few runs of NS V-Tach - Pacer needs interrogation after discharge---will defer to Cardiology - Will keep monitoring his e-lytes - No need to change current rate control meds Exacerbation of CHF, Improved - NYHA IIIb - Unknown baseline EF - ProBNP 8377-->10549-->7545 - Now off of lasix drip; resume oral lasix and continue heart failure protocol with Is/Os, salt/fluid restrictions - On Carvedilol and Digoxin, and entresto as outpatient; will d/c Azithromycin and Digoxin to avoid toxicity with Amiodarone - 2D echo: LVEF 55-60% w/o RWMA----lexiscan stress test today shows inferior wall defect, no reversible defects noted; with EF at 28% compared to 35% on previous study. Angina/CAD---Lexiscan stress with results as noted above. - Acute on chronic - Has CAGB- pain is intermittent not specific triggers - Start Imdur 15 mg po BID to hod if SBP is < 100 or HR < 60-----patient did not tolerate imdur- was hypotensive, this was DC'd. - PRN Nitro for chest pain, also morphine and ativan--were helpful with episodes of chest pain. - Trops stable, CKMB negative Generalized weakness - Continue PT/OT Resolved: S/p Bronchitis - Mild right atelectasis - WBC is 9.75--> 11.7 today; CRP of 15--> 16.1; non today - Will d/c Azithromycin 500 mg IV Daily- day 5 - IS as directed and Sputum Cx/Sx - Serial CXR as needed---repeat CXR this morning - Afebrile, RA, VSS Chronic: HLD HTN BPH S/P AICD CAD/CABG RUTHIE, no CPAP Plan: He remains clinically stable Continue current treatment Routine AM Labs DVT/GI prophylaxis CM for d/c planning Sunday after stress test---plans for DC home then transition to [facility] living after discharge. Patient is DNR/DNI code status. Vanessa Goodwin PA-C is PCP with [facility] LOS > 96hrs pending Stress Test (not available on weekends) - Patient Instructions Diet: Heart Healthy Diet Activity: As Tolerated Driving: Do Not Drive Showering/Bathing: May Shower Notify Provider of: Fever, Increased Pain, Swelling and Redness, Nausea and/or Vomiting - Discharge Plan Prescriptions/Med Rec: Amiodarone [Cordarone] 200 mg PO BID #60 tablet Docusate Sodium [Colace] 100 mg PO BID #60 cap Home Medications: Home Meds Allopurinol [Zyloprim] 200 mg PO BEDTIME 07/12/14 [History] Furosemide [Lasix] 80 mg PO DAILY 07/12/14 [History] Simvastatin [Zocor] 40 mg PO BEDTIME 07/12/14 [History] Tamsulosin [Flomax] 0.4 mg PO BID 07/12/14 [History] Finasteride 5 mg PO DAILY 08/03/16 [History] Nitroglycerin [Nitrostat] 0.4 mg SL Q5M PRN 08/03/16 [History] Sacubitril/Valsartan [Entresto 24 mg-26 mg Tablet] 1 tab PO BID 06/15/17 [ History] Aspirin [Lo-Dose Aspirin EC] 81 mg PO DAILY 10/28/17 [History] Cyanocobalamin (Vitamin B-12) [B-12] 1,000 mcg PO DAILY 10/28/17 [History] Ferrous Sulfate 324 mg PO ACBREAKFAST 10/28/17 [History] Glucosamine [Glucosamine Sulfate] 500 mg PO DAILY 10/28/17 [History] Multivitamin [Multivitamins] 1 each PO DAILY 10/28/17 [History] Vit A/Vit C/Vit E/Zinc/Copper [Preservision] 1 each PO DAILY 10/28/17 [History] Cholecalciferol (Vitamin D3) [Vitamin D3] 2,000 unit PO DAILY 11/11/17 [History] Furosemide [Lasix] 40 mg PO 1400 11/11/17 [History] Amiodarone [Cordarone] 200 mg PO BID #60 tablet 11/19/17 [Rx] Docusate Sodium [Colace] 100 mg PO BID #60 cap 11/19/17 [Rx] Patient Handouts: Edema, Heart Failure, [id number] Forms: ED Department Discharge Referrals: Mona Chandler DO [Ordering Only Provider] - 11/22/17 1:30 pm (this appt. is for post hospital and Home Health services with Physical therapy, Nursing, home safey evaluation) Vanessa Goodwin PA [Primary Care Provider] - - Discharge Summary/Plan Comment DC Time >30 min.: Yes (45 min) - Patient Data Vitals - Most Recent: Last Vital Signs Temp 98.4 F 11/19/17 11:27 Pulse 69 11/19/17 11:27 Resp 19 11/19/17 11:27 BP 102/51 L 11/19/17 11:27 Pulse Ox 95 11/19/17 11:27 Weight - Most Recent: 227 lb 12.8 oz I&O - Last 24 hours: Intake & Output 11/18/17 11/19/17 11/19/17 22:59 06:59 14:59 Intake Total 490 300 Output Total 1999 8545 200 Balance -1510 -1375 -200 Lab Results - Last 24 hrs: Laboratory Results - last 24 hr 11/19/17 11/19/17 Range/Units 05:40 05:40 WBC 8.84 (4.23-9.07) K/mm3 RBC 3.31 L (4.63-6.08) M/mm3 Hgb 10.4 L (13.7-17.5) gm/L Hct 31.8 L (40.1-51.0) % MCV 96.1 H (79.0-92.2) fl MCH 31.4 (25.7-32.2) pg MCHC 32.7 (32.2-35.5) g/dl RDW Std Deviation 46.8 H (35.1-43.9) fL Plt Count 349 H (163-337) K/mm3 MPV 9.7 (9.4-12.3) fl Neut % (Auto) 79.7 H (34.0-67.9) % Lymph % (Auto) 13.6 L (21.8-53.1) % [place] % (Auto) 4.6 L (5.3-12.2) % Eos % (Auto) 1.1 (0.8-7.0) Baso % (Auto) 0.1 (0.1-1.2) % Neut # (Auto) 7.04 H (1.78-5.38) K/mm3 Lymph # (Auto) 1.20 L (1.32-3.57) K/mm3 [place] # (Auto) 0.41 (0.30-0.82) K/mm3 Eos # (Auto) 0.10 (0.04-0.54) K/mm3 Baso # (Auto) 0.01 (0.01-0.08) K/mm3 Sodium 139 (136-145) mEq/L Potassium 3.3 L (3.5-5.1) mEq/L Chloride 102 (98-107) mEq/L Carbon Dioxide 30 (21-32) mEq/L Anion Gap 10.3 (5-15) BUN 22 H (7-18) mg/dL Creatinine 1.3 (0.7-1.3) mg/dL Est Cr Clr Drug Dosing 50.06 mL/min Estimated GFR (MDRD) 53 (>60) mL/min BUN/Creatinine Ratio 16.9 (14-18) Glucose 108 (83-115) mg/dL Calcium 8.9 (8.5-10.1) mg/dL Magnesium 2.0 (1.8-2.4) mg/dl Med Orders - Current: Current Medications Acetaminophen (Tylenol) 650 mg PO Q4H PRN PRN Reason: Temperature Last Admin: 11/15/17 04:00 Dose: 650 mg Allopurinol (Zyloprim) 200 mg PO BEDTIME NOEL Last Admin: 11/18/17 21:00 Dose: 200 mg Amiodarone HCl (Cordarone) 200 mg PO BID [facility] Last Admin: 11/19/17 09:41 Dose: 200 mg Aspirin (Halfprin) 81 mg PO DAILY [facility] Last Admin: 11/19/17 09:41 Dose: 81 mg Bisacodyl (Dulcolax) 10 mg PO DAILY PRN PRN Reason: Constipation Last Admin: 11/18/17 14:30 Dose: 10 mg Docusate Sodium (Colace) 100 mg PO DAILY [facility] Last Admin: 11/19/17 09:41 Dose: 100 mg Ferrous Sulfate (Ferrous Sulfate) 325 mg PO ACBREAKFAST [facility] Last Admin: 11/19/17 06:02 Dose: Not Given Finasteride (Proscar) 5 mg PO DAILY [facility] Last Admin: 11/19/17 09:41 Dose: 5 mg Furosemide (Lasix) 40 mg PO 1400 [facility] Last Admin: 11/18/17 14:30 Dose: 40 mg Furosemide (Lasix) 80 mg PO DAILY [facility] Last Admin: 11/19/17 09:41 Dose: 80 mg Guaifenesin/Phenylephrine HCl (Robitussin Dm) 10 ml PO BID [facility] Last Admin: 11/19/17 09:40 Dose: 10 ml Heparin Sodium (Porcine) (Heparin Sodium) 5,000 units SUBCUT Q12HR [facility] Last Admin: 11/19/17 09:40 Dose: 5,000 units Nitroglycerin (Nitrostat) 0.4 mg SL Q5M PRN PRN Reason: Chest Pain Last Admin: 11/16/17 15:34 Dose: 0.4 mg Sacubitril/Valsartan [Entresto 24 Mg-26 Mg Tablet] 0 each PO BID [facility] Last Admin: 11/19/17 09:42 Dose: 1 each Ranolazine (Ranexa) 500 mg PO BID [facility] Last Admin: 11/19/17 09:40 Dose: 500 mg Simvastatin (Zocor) 40 mg PO BEDTIME [facility] Last Admin: 11/18/17 21:00 Dose: 40 mg Sodium Chloride (Saline Flush) 10 ml FLUSH ASDIRECTED PRN PRN Reason: Keep Vein Open Last Admin: 11/11/17 16:59 Dose: 10 ml Tamsulosin HCl (Flomax) 0.4 mg PO BID [facility] Last Admin: 11/19/17 09:40 Dose: 0.4 mg Discontinued Medications Amiodarone HCl (Cordarone) 800 mg PO DAILY [facility] Amiodarone HCl (Cordarone) 800 mg PO ONETIME ONE Stop: 11/18/17 16:44 Amiodarone HCl (Cordarone) 200 mg PO ONETIME ONE Stop: 11/18/17 16:51 Last Admin: 11/18/17 17:09 Dose: 200 mg Bumetanide (Bumex) 0.5 mg IVPUSH BID [facility] Last Admin: 11/15/17 09:21 Dose: 0.5 mg Bumetanide (Bumex) 0.5 mg IVPUSH ONETIME ONE Stop: 11/18/17 18:01 Last Admin: 11/18/17 17:09 Dose: 0.5 mg Carvedilol (Coreg) 3.125 mg PO BIDMEALS [facility] Last Admin: 11/18/17 06:49 Dose: 3.125 mg Digoxin (Lanoxin) 125 mcg PO MoWeFr@1200 [facility] Last Admin: 11/16/17 12:52 Dose: 125 mcg Furosemide (Lasix) 40 mg IVPUSH NOW ONE Stop: 11/11/17 16:19 Last Admin: 11/11/17 17:29 Dose: 40 mg Furosemide (Lasix) 40 mg IVPUSH NOW ONE Stop: 11/11/17 19:45 Last Admin: 11/11/17 21:12 Dose: 40 mg Furosemide (Lasix) 40 mg IVPUSH NOW ONE Stop: 11/12/17 08:01 Last Admin: 11/12/17 08:06 Dose: Not Given Furosemide 100 mg/ Sodium (Chloride) 100 mls @ 3 mls/hr IV TITRATE [facility] Last Admin: 11/12/17 12:29 Dose: 3 mls/hr Azithromycin 500 mg/ Sodium (Chloride) 250 mls @ 250 mls/hr IV ONETIME ONE Stop: 11/13/17 14:04 Last Admin: 11/13/17 15:27 Dose: Not Given Azithromycin 500 mg/ Sodium (Chloride) 250 mls @ 250 mls/hr IV Q24H [facility] Last Admin: 11/13/17 15:25 Dose: 250 mls/hr Azithromycin 500 mg/ Sodium (Chloride) 250 mls @ 250 mls/hr IV Q24H [facility] Last Admin: 11/18/17 13:09 Dose: 250 mls/hr Isosorbide Mononitrate (Imdur) 15 mg PO BID [facility] Last Admin: 11/16/17 09:00 Dose: Not Given Lorazepam (Ativan) 0.5 mg IVPUSH ONETIME ONE Stop: 11/15/17 04:37 Last Admin: 11/15/17 05:06 Dose: 0.5 mg Morphine Sulfate (Morphine) 0.5 mg IVPUSH ONETIME ONE Stop: 11/15/17 04:36 Last Admin: 11/15/17 04:45 Dose: 0.5 mg Potassium Chloride (Potassium Chloride) 40 meq PO BID [facility] Stop: 11/13/17 21:01 Last Admin: 11/13/17 20:29 Dose: 40 meq Potassium Chloride (Klor-Con M20) 40 meq PO ONETIME ONE Stop: 11/19/17 10:39 Last Admin: 11/19/17 11:51 Dose: 40 meq Regadenoson (Lexiscan) 0.4 mg IVPUSH ONETIME ONE Stop: 11/19/17 07:22 Last Admin: 11/19/17 07:59 Dose: 0.4 mg Sodium Chloride (Saline Flush) 10 ml FLUSH ONETIME [facility] Stop: 11/19/17 09:00 Last Admin: 11/19/17 07:59 Dose: 10 ml *Q Meaningful Use (DIS) - VTE *Q VTE Criteria *Q: - Stroke *Q Stroke Criteria *Q: - AMI *Q AMI Criteria *Q:
[2017-11-19 15:39] VITALS: BP 104/87
--- NOTE | 2017-11-20 07:39 | STRESS ---
REQUESTING PHYSICIAN: Beth Garay MD DATE: 11/19/2017 ORDERING PROVIDER: Beth Garay MD. PROCEDURE: Lexiscan stress test. INDICATION: Acute on chronic angina. BASELINE EKG: Normal sinus rhythm, left bundle branch block. Ventricular rate 65 beats per minute with 1 PVC noted. PROTOCOL: Lexiscan. Max heart rate 81 beats per minute. Peak blood pressure 136/59. Total test time 6 minutes. METS 1.0. REASON FOR STOPPING TEST: Completion of Lexiscan testing. During testing and recovery, the patient did not experience chest pain. No other anginal equivalents or symptoms were noted. There were no ST-T wave changes consistent with ischemia, no arrhythmias, there were multifocal PVCs noted throughout testing, which were asymptomatic. IMPRESSION: 1. Inconclusive Lexiscan test for ischemia due to baseline left bundle branch block. 2. Normal blood pressure response to stress. 3. Nuclear imaging results pending and will be reported separately per radiologist. MMODAL /[id number]
== END 2017-11-19 17:20 | disposition home health service (06) | DRG 292 ==
LOC: JD.ED 15:10 → JD.MS 18:57 → UNDOADMIN 18:57 → JD.MS 20:12 → UNDODISIN 11-19 17:20
PROVIDERS: ADMIT Internal Medicine Cardiovascular Disease; ATTEND Internal Medicine Cardiovascular Disease
DX: I11.0 Hypertensive heart disease with heart failure (principal); I47.2 Ventricular tachycardia; I25.709 Atherosclerosis of coronary artery bypass graft(s), unspecified, with unspecified angina pectoris; I50.9 Heart failure, unspecified; J40 Bronchitis, not specified as acute or chronic; I25.810 Atherosclerosis of coronary artery bypass graft(s) without angina pectoris; E78.00 Pure hypercholesterolemia, unspecified; G47.30 Sleep apnea, unspecified; R09.02 Hypoxemia; M10.9 Gout, unspecified; R74.8 Abnormal levels of other serum enzymes; N28.9 Disorder of kidney and ureter, unspecified; Z95.0 Presence of cardiac pacemaker; G47.33 Obstructive sleep apnea (adult) (pediatric); E78.5 Hyperlipidemia, unspecified; N40.0 Benign prostatic hyperplasia without lower urinary tract symptoms; Z95.810 Presence of automatic (implantable) cardiac defibrillator; Z66 Do not resuscitate; R53.1 Weakness; R00.1 Bradycardia, unspecified; H91.90 Unspecified hearing loss, unspecified ear; Z90.49 Acquired absence of other specified parts of digestive tract; Z79.82 Long term (current) use of aspirin; Z79.899 Other long term (current) drug therapy
CPT/HCPCS: 36415; 71045; 80053; 80162; 83880; 84484; 85025; 93005; 93971; 96374; 99285; J1940; J7050; 51702; 71046; 71046-26; 78452; 78452-26; 80048; 82553; 83735; 84439; 84443; 86140; 86738; 87899; 93010; 93017; 93306; 94760; 97110-GP; 97116-GP; 97161-GP; 97165-GO; A9270-GY; A9500; J0456; J1644; J2060; J2270; J2785; J7030

== ENCOUNTER 2017-12-31 09:52 | Emergency (ER) | payer MEDICARE, BC, OTHER ==
[2017-12-31] MEDS ORDERED: Sodium Chloride 0.9% 10 ML Syringe FLUSH PRN (10:03)
[2017-12-31 10:04] VITALS: BP 129/79
[2017-12-31] MEDS ORDERED: Sodium Chloride 0.9% 1,000 ML IV SCH (10:15)
--- NOTE | 2017-12-31 10:47 | CR ---
Chest: Portable view of the chest was obtained. Comparison: Prior chest x-ray of 11/22/17. Heart is enlarged. Tortuous thoracic aorta is seen. Previous sternotomy is noted. AICD is present. Right shoulder prosthesis is seen. Lungs are clear. Impression: 1. Cardiomegaly. Other incidental findings. Nothing acute is seen. Diagnostic code #2
--- NOTE | 2017-12-31 11:51 | EDM.PDOC ---
ED HPI GENERAL MEDICAL PROBLEM - General Chief Complaint: Cardiovascular Problem Stated Complaint: [facility] Time Seen by Provider: 12/31/17 09:58 Source of Information: Reports: Patient History Limitations: Reports: No Limitations - History of Present Illness INITIAL COMMENTS - FREE TEXT/NARRATIVE: The patient presents by ambulance from assisted living for low blood pressure. This morning his blood pressure was in the 70s systolic. It was taken by a nurse. When EMS got there it was 100s systolic. He was light headed this morning when sitting up. He says he has some cold symptoms with congestion and runny nose. He has no headache, chest pain, shortness of breath, abdominal pain , nausea or vomiting. He was admitted last month for CHF exacerbation. Onset: Sudden Duration: Hour(s): Severity: Moderate Improves with: Reports: None Worsens with: Reports: None Associated Symptoms: Denies: Chest Pain, Fever/Chills, Headaches, Nausea/ Vomiting, Shortness of Breath - Related Data Allergies Allergy/AdvReac Type Severity Reaction Status Date / Time No Known Allergies Allergy Verified 10/03/17 16:44 Home Meds: Home Meds Allopurinol [Zyloprim] 200 mg PO DAILY 07/12/14 [History] Furosemide [Lasix] 80 mg PO DAILY 07/12/14 [History] Simvastatin [Zocor] 40 mg PO BEDTIME 07/12/14 [History] Tamsulosin [Flomax] 0.4 mg PO BID 07/12/14 [History] Finasteride 5 mg PO BEDTIME 08/03/16 [History] Nitroglycerin [Nitrostat] 0.4 mg SL Q5M PRN 08/03/16 [History] Sacubitril/Valsartan [Entresto 24 mg-26 mg Tablet] 1 tab PO BID 06/15/17 [ History] Aspirin [Lo-Dose Aspirin EC] 81 mg PO DAILY 10/28/17 [History] Cyanocobalamin (Vitamin B-12) [B-12] 1,000 mcg PO DAILY 10/28/17 [History] Glucosamine [Glucosamine Sulfate] 500 mg PO BEDTIME 10/28/17 [History] Multivitamin [Multivitamins] 1 each PO DAILY 10/28/17 [History] Vit A/Vit C/Vit E/Zinc/Copper [Preservision] 1 each PO DAILY 10/28/17 [History] Furosemide [Lasix] 40 mg PO BEDTIME 11/11/17 [History] Amiodarone [Cordarone] 200 mg PO BID #60 tablet 11/19/17 [Rx] Docusate Sodium [Colace] 100 mg PO BID #60 cap 11/19/17 [Rx] Ranolazine [Ranexa] 500 mg PO BID #60 tab.er.12h 11/19/17 [Rx] Ferrous Gluconate [Fergon] 240 mg PO BEDTIME 12/31/17 [History] [place]-3S/DHA/Epa/Fish Oil [Fish Oil [place]-3 Softgel] 1 cap PO DAILY 12/31/17 [ History] Past Medical History HEENT History: Reports: Hard of Hearing Cardiovascular History: Reports: CAD, Heart Failure, High Cholesterol, Hypertension Other Cardiovascular History: quad bypass 2002 Respiratory History: Reports: Sleep Apnea Other Respiratory History: does not wear a CPAP Gastrointestinal History: Reports: Other (See Below) Other Gastrointestinal History: Hx of hernias x2 - both repaired surgically Genitourinary History: Reports: BPH, Renal Calculus Musculoskeletal History: Reports: Gout Endocrine/Metabolic History: Reports: None - Infectious Disease History Infectious Disease History: Reports: Chicken Pox - Past Surgical History HEENT Surgical History: Reports: Cataract Surgery, Oral Surgery, Tonsillectomy Cardiovascular Surgical History: Reports: Coronary Artery Bypass, Pacer, Other ( See Below) Other Cardiovascular Surgeries/Procedures: 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 GI Surgical History: Reports: Appendectomy, Cholecystectomy, Hernia, Inguinal Musculoskeletal Surgical History: Reports: Knee Replacement, Shoulder Surgery Social & Family History - Family History Family Medical History: Noncontributory Cardiac: Reports: [place] Oncologic: Reports: Breast - Tobacco Use Smoking Status *Q: Never Smoker Second Hand Smoke Exposure: No - Caffeine Use Caffeine Use: Reports: Coffee Other Caffeine Use: couple cups a day - Alcohol Use Days Per Week of Alcohol Use: 0 - Recreational Drug Use Recreational Drug Use: No - Living Situation & Occupation Living situation: Reports: , Alone Occupation: Retired ED ROS GENERAL - Review of Systems Review Of Systems: See Below Constitutional: Reports: No Symptoms HEENT: Reports: No Symptoms Respiratory: Reports: No Symptoms Cardiovascular: Reports: Lightheadedness. Denies: Chest Pain Endocrine: Reports: No Symptoms GI/Abdominal: Reports: No Symptoms : Reports: No Symptoms Musculoskeletal: Reports: No Symptoms Skin: Reports: No Symptoms Neurological: Reports: No Symptoms ED EXAM, GENERAL - Physical Exam Exam: See Below Exam Limited By: No Limitations General Appearance: Alert, No Apparent Distress Ears: Normal External Exam Nose: Normal Inspection Head: Atraumatic, Normocephalic Neck: Normal Inspection Respiratory/Chest: No Respiratory Distress, Lungs Clear, Normal Breath Sounds Cardiovascular: Regular Rate, Rhythm, No Edema, No Murmur GI/Abdominal: Soft, Non-Tender, No Organomegaly, No Mass Extremities: Pedal Edema Neurological: Alert, Oriented, No Motor/Sensory Deficits EKG INTERPRETATION EKG Date: 12/31/17 Time: 10:20 Rhythm: Other (Paced rhythm) Rate (Beats/Min): 60 Course - Vital Signs Last Recorded V/S: Last Vital Signs Temp 96.9 F 12/31/17 09:59 Pulse 65 12/31/17 09:59 Resp 13 12/31/17 09:59 BP 129/79 12/31/17 09:59 Pulse Ox - Orders/Labs/Meds Orders: Active Orders 24 hr Category Date Time Status Cardiac Monitoring [RC] . DIRECTED Care 12/31/17 10:03 Active EKG Documentation Completion [RC] STAT Care 12/31/17 10:03 Active Peripheral IV Care [RC] . DIRECTED Care 12/31/17 10:03 Active Sodium Chloride 0.9% [Normal Saline] 1,000 ml Med 12/31/17 10:15 Active IV ASDIRECTED Sodium Chloride 0.9% [Saline Flush] Med 12/31/17 10:03 Active 10 ml FLUSH ASDIRECTED PRN Peripheral IV Insertion Adult [OM.PC] Stat Oth 12/31/17 10:03 Ordered Medication Orders Sodium Chloride (Normal Saline) 1,000 mls @ 125 mls/hr IV ASDIRECTED NOEL Last Admin: 12/31/17 10:10 Dose: 125 mls/hr Sodium Chloride (Saline Flush) 10 ml FLUSH ASDIRECTED PRN PRN Reason: Keep Vein Open Last Admin: 12/31/17 10:11 Dose: 10 ml Labs: Laboratory Tests 12/31/17 12/31/17 12/31/17 Range/Units 10:17 10:17 10:17 WBC 5.75 (4.23-9.07) K/mm3 RBC 3.47 L (4.63-6.08) M/mm3 Hgb 10.9 L (13.7-17.5) gm/L Hct 34.2 L (40.1-51.0) % MCV 98.6 H (79.0-92.2) fl MCH 31.4 (25.7-32.2) pg MCHC 31.9 L (32.2-35.5) g/dl RDW Std Deviation 63.8 H (35.1-43.9) fL Plt Count 139 L (163-337) K/mm3 MPV 9.6 (9.4-12.3) fl Neut % (Auto) 50.3 (34.0-67.9) % Lymph % (Auto) 40.5 (21.8-53.1) % [place] % (Auto) 6.4 (5.3-12.2) % Eos % (Auto) 2.3 (0.8-7.0) Baso % (Auto) 0.3 (0.1-1.2) % Neut # (Auto) 2.89 (1.78-5.38) K/mm3 Lymph # (Auto) 2.33 (1.32-3.57) K/mm3 [place] # (Auto) 0.37 (0.30-0.82) K/mm3 Eos # (Auto) 0.13 (0.04-0.54) K/mm3 Baso # (Auto) 0.02 (0.01-0.08) K/mm3 Sodium 143 (136-145) mEq/L Potassium 3.3 L (3.5-5.1) mEq/L Chloride 104 (98-107) mEq/L Carbon Dioxide 29 (21-32) mEq/L Anion Gap 13.3 (5-15) BUN 31 H (7-18) mg/dL Creatinine 1.7 H (0.7-1.3) mg/dL Est Cr Clr Drug Dosing 38.28 mL/min Estimated GFR (MDRD) 39 (>60) mL/min BUN/Creatinine Ratio 18.2 H (14-18) Glucose 86 (83-115) mg/dL Calcium 8.9 (8.5-10.1) mg/dL Total Bilirubin 0.7 (0.2-1.0) mg/dL AST 32 (15-37) U/L ALT 27 (16-63) U/L Alkaline Phosphatase 60 (46-116) U/L Troponin I 0.057 H* (0.00-0.056) ng/mL NT-Pro-B Natriuret Pep 934 H (0-450) pg/mL Total Protein 6.8 (6.4-8.2) g/dl Albumin 2.9 L (3.4-5.0) g/dl Globulin 3.9 gm/dL Albumin/Globulin Ratio 0.7 L (1-2) Urine Color (Yellow) Urine Appearance (Clear) Urine pH (5.0-8.0) Ur Specific [place] (1.005-1.030) Urine Protein (Negative) Urine Glucose (UA) (Negative) Urine Ketones (Negative) Urine Occult Blood (Negative) Urine Nitrite (Negative) Urine Bilirubin (Negative) Urine Urobilinogen (0.2-1.0) Ur Leukocyte Esterase (Negative) Urine RBC (0-5) /hpf Urine WBC (0-5) /hpf Ur Epithelial Cells (0-5) /hpf Urine Bacteria (FEW) /hpf Urine Mucus (FEW) /hpf 12/31/17 12/31/17 Range/Units 11:55 12:25 WBC (4.23-9.07) K/mm3 RBC (4.63-6.08) M/mm3 Hgb (13.7-17.5) gm/L Hct (40.1-51.0) % MCV (79.0-92.2) fl MCH (25.7-32.2) pg MCHC (32.2-35.5) g/dl RDW Std Deviation (35.1-43.9) fL Plt Count (163-337) K/mm3 MPV (9.4-12.3) fl Neut % (Auto) (34.0-67.9) % Lymph % (Auto) (21.8-53.1) % [place] % (Auto) (5.3-12.2) % Eos % (Auto) (0.8-7.0) Baso % (Auto) (0.1-1.2) % Neut # (Auto) (1.78-5.38) K/mm3 Lymph # (Auto) (1.32-3.57) K/mm3 [place] # (Auto) (0.30-0.82) K/mm3 Eos # (Auto) (0.04-0.54) K/mm3 Baso # (Auto) (0.01-0.08) K/mm3 Sodium (136-145) mEq/L Potassium (3.5-5.1) mEq/L Chloride (98-107) mEq/L Carbon Dioxide (21-32) mEq/L Anion Gap (5-15) BUN (7-18) mg/dL Creatinine (0.7-1.3) mg/dL Est Cr Clr Drug Dosing mL/min Estimated GFR (MDRD) (>60) mL/min BUN/Creatinine Ratio (14-18) Glucose (83-115) mg/dL Calcium (8.5-10.1) mg/dL Total Bilirubin (0.2-1.0) mg/dL AST (15-37) U/L ALT (16-63) U/L Alkaline Phosphatase (46-116) U/L Troponin I 0.058 H* (0.00-0.056) ng/mL NT-Pro-B Natriuret Pep (0-450) pg/mL Total Protein (6.4-8.2) g/dl Albumin (3.4-5.0) g/dl Globulin gm/dL Albumin/Globulin Ratio (1-2) Urine Color Yellow (Yellow) Urine Appearance Clear (Clear) Urine pH 7.0 (5.0-8.0) Ur Specific [place] 1.020 (1.005-1.030) Urine Protein Negative (Negative) Urine Glucose (UA) Negative (Negative) Urine Ketones Negative (Negative) Urine Occult Blood Negative (Negative) Urine Nitrite Negative (Negative) Urine Bilirubin Negative (Negative) Urine Urobilinogen 1.0 (0.2-1.0) Ur Leukocyte Esterase Negative (Negative) Urine RBC Not seen (0-5) /hpf Urine WBC 0-5 (0-5) /hpf Ur Epithelial Cells Not seen (0-5) /hpf Urine Bacteria Few (FEW) /hpf Urine Mucus Not seen (FEW) /hpf Meds: Medications Generic Name Dose Route Start Last Admin Trade Name Freq PRN Reason Stop Dose Admin Sodium Chloride 1,000 mls @ 125 mls/hr 12/31/17 10:15 12/31/17 10:10 Normal Saline IV 125 mls/hr ASDIRECTED NOEL Administration Sodium Chloride 10 ml 12/31/17 10:03 12/31/17 10:11 Saline Flush FLUSH 10 ml ASDIRECTED PRN Administration Keep Vein Open - Re-Assessments/Exams Free Text/Narrative Re-Assessment/Exam: 12/31/17 11:56 I ordered an IV NS at 125mL/hr, labs, EKG, and CXR. His EKG shows paced rhythm. His CXR shows cardiomegaly with no acute changes. His Hgb was low at 10.9. His K was low at 3.3. His creatinine was elevated at 1.7. His tropoin was slightly elevated at 0.057. His troponin was elevated last time he was admitted. His BNP was elevated at 934. 12/31/17 12:57 His troponin is still elevated at 0.058. His influenza and UA look good. I will discharge him home. I talked with his provider Vanessa Goodwin and she will follow up with him. She did not want any meds changed at this time. It took months to get him stabalized after surgery. 12/31/17 12:59 His blood pressures have been in the 120s while he was here. Departure - Departure Time of Disposition: 13:00 Disposition: Home, Self-Care 01 Condition: Good Clinical Impression: Hypotension Qualifiers: Hypotension type: unspecified hypotension type Qualified Code(s): I95.9 - Hypotension, unspecified Referrals: Vanessa Goodwin PA [Primary Care Provider] - 1 Week Forms: ED Department Discharge Additional Instructions: Take your medications as prescribed. No changes are needed at this time. Please return if you are worse. - My Orders Last 24 Hours: My Active Orders 12/31/17 10:03 Cardiac Monitoring [RC] . DIRECTED EKG Documentation Completion [RC] STAT Peripheral IV Care [RC] . DIRECTED Sodium Chloride 0.9% [Saline Flush] 10 ml FLUSH ASDIRECTED PRN Peripheral IV Insertion Adult [OM.PC] Stat 12/31/17 10:15 Sodium Chloride 0.9% [Normal Saline] 1,000 ml IV ASDIRECTED - Assessment/Plan Last 24 Hours: My Active Orders 12/31/17 10:03 Cardiac Monitoring [RC] . DIRECTED EKG Documentation Completion [RC] STAT Peripheral IV Care [RC] . DIRECTED Sodium Chloride 0.9% [Saline Flush] 10 ml FLUSH ASDIRECTED PRN Peripheral IV Insertion Adult [OM.PC] Stat 12/31/17 10:15 Sodium Chloride 0.9% [Normal Saline] 1,000 ml IV ASDIRECTED
== END 2017-12-31 13:40 | disposition home or self-care (01) ==
LOC: JD.ED 09:52 → SUPCPDRO 09:52 → JD.ED 13:40
DX: I95.9 Hypotension, unspecified (principal); I11.0 Hypertensive heart disease with heart failure; I50.9 Heart failure, unspecified; I25.10 Atherosclerotic heart disease of native coronary artery without angina pectoris; E78.00 Pure hypercholesterolemia, unspecified; Z95.810 Presence of automatic (implantable) cardiac defibrillator; Z79.82 Long term (current) use of aspirin; Z79.899 Other long term (current) drug therapy; Z96.659 Presence of unspecified artificial knee joint; Z98.890 Other specified postprocedural states
CPT/HCPCS: 36415; 71045; 80053; 81001; 83880; 84484; 85025; 87804; 93005; 96360; 96361; 99285; J7040; J7050; 93010; 99284-25

== ENCOUNTER 2018-04-28 15:50 | Emergency (ER) | payer MEDICARE, BC ==
--- NOTE | 2018-04-28 16:57 | EDM.PDOC ---
ED HPI GENERAL MEDICAL PROBLEM - General Chief Complaint: ENT Problem Stated Complaint: BLOODY NOSE Time Seen by Provider: 04/28/18 16:09 Source of Information: Reports: Patient History Limitations: Reports: No Limitations - History of Present Illness INITIAL COMMENTS - FREE TEXT/NARRATIVE: The patient presents with a nose bleed from the right nostril. This started about 1 hour ago. He was in [place] and when he got into the car it started. He has a history of nose bleeds. He is on a blood thinner but no coumadin. He had no trauma to his nose. Onset: Sudden Duration: Hour(s): Severity: Moderate Improves with: Reports: None Worsens with: Reports: None Associated Symptoms: Reports: No Other Symptoms - Related Data Allergies Allergy/AdvReac Type Severity Reaction Status Date / Time No Known Allergies Allergy Verified 10/03/17 16:44 Home Meds: Home Meds Allopurinol [Zyloprim] 200 mg PO DAILY 07/12/14 [History] Furosemide [Lasix] 80 mg PO DAILY 07/12/14 [History] Simvastatin [Zocor] 40 mg PO BEDTIME 07/12/14 [History] Tamsulosin [Flomax] 0.4 mg PO BID 07/12/14 [History] Finasteride 5 mg PO BEDTIME 08/03/16 [History] Nitroglycerin [Nitrostat] 0.4 mg SL Q5M PRN 08/03/16 [History] Sacubitril/Valsartan [Entresto 24 mg-26 mg Tablet] 1 tab PO BID 06/15/17 [ History] Aspirin [Lo-Dose Aspirin EC] 81 mg PO DAILY 10/28/17 [History] Cyanocobalamin (Vitamin B-12) [B-12] 1,000 mcg PO DAILY 10/28/17 [History] Glucosamine [Glucosamine Sulfate] 500 mg PO BEDTIME 10/28/17 [History] Multivitamin [Multivitamins] 1 each PO DAILY 10/28/17 [History] Vit A/Vit C/Vit E/Zinc/Copper [Preservision] 1 each PO DAILY 10/28/17 [History] Furosemide [Lasix] 40 mg PO BEDTIME 11/11/17 [History] Amiodarone [Cordarone] 200 mg PO BID #60 tablet 11/19/17 [Rx] Docusate Sodium [Colace] 100 mg PO BID #60 cap 11/19/17 [Rx] Ranolazine [Ranexa] 500 mg PO BID #60 tab.er.12h 11/19/17 [Rx] Ferrous Gluconate [Fergon] 240 mg PO BEDTIME 12/31/17 [History] [place]-3S/DHA/Epa/Fish Oil [Fish Oil [place]-3 Softgel] 1 cap PO DAILY 12/31/17 [ History] Past Medical History HEENT History: Reports: Hard of Hearing Cardiovascular History: Reports: CAD, Heart Failure, High Cholesterol, Hypertension Other Cardiovascular History: quad bypass 2002 Respiratory History: Reports: Sleep Apnea Other Respiratory History: does not wear a CPAP Gastrointestinal History: Reports: Other (See Below) Other Gastrointestinal History: Hx of hernias x2 - both repaired surgically Genitourinary History: Reports: BPH, Renal Calculus Musculoskeletal History: Reports: Gout Endocrine/Metabolic History: Reports: None - Infectious Disease History Infectious Disease History: Reports: Chicken Pox - Past Surgical History HEENT Surgical History: Reports: Cataract Surgery, Oral Surgery, Tonsillectomy Cardiovascular Surgical History: Reports: Coronary Artery Bypass, Pacer, Other ( See Below) Other Cardiovascular Surgeries/Procedures: 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 GI Surgical History: Reports: Appendectomy, Cholecystectomy, Hernia, Inguinal Musculoskeletal Surgical History: Reports: Knee Replacement, Shoulder Surgery Social & Family History - Family History Family Medical History: Noncontributory Cardiac: Reports: [place] Oncologic: Reports: Breast - Tobacco Use Smoking Status *Q: Never Smoker - Caffeine Use Caffeine Use: Reports: Coffee, Soda, Tea Other Caffeine Use: couple cups a day - Recreational Drug Use Recreational Drug Use: No - Living Situation & Occupation Living situation: Reports: , Alone Occupation: Retired ED ROS ENT - Review of Systems Review Of Systems: See Below Constitutional: Reports: No Symptoms HEENT: Reports: Nosebleed Respiratory: Reports: No Symptoms Cardiovascular: Reports: No Symptoms Endocrine: Reports: No Symptoms GI/Abdominal: Reports: No Symptoms : Reports: No Symptoms Musculoskeletal: Reports: No Symptoms Skin: Reports: No Symptoms ED EXAM, ENT - Physical Exam Exam: See Below Exam Limited By: No Limitations General Appearance: Alert, No Apparent Distress Ears: Normal External Exam Nose: Active Bleeding (Mild bleeding from the right anterior septum) Mouth/Throat: Normal Inspection Head: Atraumatic, Normocephalic Neck: Normal Inspection Respiratory/Chest: No Respiratory Distress Extremities: Normal Inspection Neurological: Alert, Oriented, No Motor/Sensory Deficits ED ENT PROCEDURES - Epistaxis Procedure Indication: Epistaxis Recent anticoagulants/antiplatlets: Yes Uncontrolled HTN: No Recent septal/nasal surgery: No Site of bleeding: Right Nare Clearing of clots: Patient Blew Nose Topical Meds: Topical Cocaine Chemical cautery: Silver Nitrate Topical Complications: No Course - Vital Signs Last Recorded V/S: Last Vital Signs Temp 97.5 F 04/28/18 15:59 Pulse 78 04/28/18 15:59 Resp 20 04/28/18 15:59 BP 114/67 04/28/18 15:59 Pulse Ox 93 L 04/28/18 15:59 - Orders/Labs/Meds Meds: Medications Discontinued Medications Generic Name Dose Route Start Last Admin Trade Name [place]q PRN Reason Stop Dose Admin Cocaine HCl 3 ml 04/28/18 16:09 04/28/18 16:15 Cocaine Hcl TOP 04/28/18 16:10 3 ml ONETIME ONE Administration - Re-Assessments/Exams Free Text/Narrative Re-Assessment/Exam: 04/28/18 17:10 He had no more bleeding. I will discharge him home. Departure - Departure Time of Disposition: 17:10 Disposition: Home, Self-Care 01 Condition: Good Clinical Impression: Epistaxis - Discharge Information Referrals: Vanessa Goodwin PA [Primary Care Provider] - Forms: ED Department Discharge Additional Instructions: Take your medication as prescribed. Please return if you are worse. Use the salve you have as a prescription for your nose.
[2018-04-28 17:18] VITALS: BP 111/77
== END 2018-04-28 17:19 | disposition home or self-care (01) ==
LOC: JD.ED 15:50
DX: R04.0 Epistaxis (principal); I11.0 Hypertensive heart disease with heart failure; I50.9 Heart failure, unspecified; E78.00 Pure hypercholesterolemia, unspecified; Z79.899 Other long term (current) drug therapy; Z79.82 Long term (current) use of aspirin
CPT/HCPCS: 30901; 30905; 99282-25; 99283-25

== ENCOUNTER 2021-07-13 20:39 | Emergency (ER) | payer MEDICARE, BC ==
[2021-07-13 20:56] VITALS: BP 119/69; PULSE 71
[2021-07-13] MEDS ORDERED: Sodium Chloride 0.9% 10 ML Syringe FLUSH PRN (20:59)
--- NOTE | 2021-07-13 21:16 | EDM.PDOC ---
ED HPI GENERAL MEDICAL PROBLEM - General Chief Complaint: Chest Pain Stated Complaint: PACEMAKER PROBLEMS/CHEST PAIN Time Seen by Provider: 07/13/21 20:59 Source of Information: Reports: Patient, RN Notes Reviewed History Limitations: Reports: No Limitations - History of Present Illness INITIAL COMMENTS - FREE TEXT/NARRATIVE: Patient is a 85-year-old male who presents to the ER for evaluation of chest pain. Patient has a pacemaker, and was starting to have some pain around the spot where his pacemaker is placed, and became concerned. He notes that he lives by himself, and was worried that it might be malfunctioning. Pain does not seem to radiate down his arm, or up into his jaw. Patient's pets and pet supplies salesperson is Dr. Barker, and he states that he had a pretty good checkup roughly a month and a half ago. Patient denies any other sick-like symptoms, fever/chills, cough/shortness of breath, nausea/vomiting/diarrhea. - Related Data Allergies Allergy/AdvReac Type Severity Reaction Status Date / Time No Known Allergies Allergy Verified 07/13/21 20:56 Home Meds: Home Meds Furosemide [Lasix] 80 mg PO DAILY 07/12/14 [History] Simvastatin [Zocor] 40 mg PO BEDTIME 07/12/14 [History] Tamsulosin [Flomax] 0.4 mg PO BID 07/12/14 [History] allopurinoL [Zyloprim] 200 mg PO DAILY 07/12/14 [History] Finasteride 5 mg PO BEDTIME 08/03/16 [History] Nitroglycerin [Nitrostat] 0.4 mg SL Q5M PRN 08/03/16 [History] Sacubitril/Valsartan [Entresto 24 mg-26 mg Tablet] 1 tab PO BID 06/15/17 [History] Aspirin [Lo-Dose Aspirin EC] 81 mg PO DAILY 10/28/17 [History] Cyanocobalamin (Vitamin B-12) [B-12] 1,000 mcg PO DAILY 10/28/17 [History] Glucosamine [Glucosamine Sulfate] 500 mg PO BEDTIME 10/28/17 [History] Multivitamin [Multivitamins] 1 each PO DAILY 10/28/17 [History] Vit A/Vit C/Vit E/Zinc/Copper [Preservision] 1 each PO DAILY 10/28/17 [History] Furosemide [Lasix] 40 mg PO BEDTIME 11/11/17 [History] Amiodarone [Cordarone] 200 mg PO BID #60 tablet 11/19/17 [Rx] Docusate Sodium [Colace] 100 mg PO BID #60 cap 11/19/17 [Rx] Ranolazine [Ranexa] 500 mg PO BID #60 tab.er.12h 11/19/17 [Rx] Ferrous Gluconate [Fergon] 240 mg PO BEDTIME 12/31/17 [History] [place]-3S/DHA/Epa/Fish Oil [Fish Oil [place]-3 Softgel] 1 cap PO DAILY 12/31/17 [History] Past Medical History HEENT History: Reports: Hard of Hearing Cardiovascular History: Reports: CAD, Heart Failure, High Cholesterol, Hypertension, [place], Pacemaker Other Cardiovascular History: quad bypass 2002 Respiratory History: Reports: Sleep Apnea Other Respiratory History: does not wear a CPAP Gastrointestinal History: Reports: Other (See Below) Other Gastrointestinal History: Hx of hernias x2 - both repaired surgically Genitourinary History: Reports: BPH, Renal Calculus Musculoskeletal History: Reports: Gout - Infectious Disease History Infectious Disease History: Reports: Chicken Pox - Past Surgical History HEENT Surgical History: Reports: Cataract Surgery, Oral Surgery, Tonsillectomy Other HEENT Surgeries/Procedures: Patient states "I had a partial tonsillectomy" Cardiovascular Surgical History: Reports: Coronary Artery Bypass (quad bypass 2002), Pacer, Other (See Below) Other Cardiovascular Surgeries/Procedures: 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 GI Surgical History: Reports: Appendectomy, Cholecystectomy, Hernia, Inguinal Musculoskeletal Surgical History: Reports: Knee Replacement, Shoulder Surgery Social & Family History - Family History Family Medical History: No Pertinent Family History Cardiac: Reports: [place] Oncologic: Reports: Breast - Tobacco Use Tobacco Use Status *Q: Never Tobacco User Second Hand Smoke Exposure: No - Caffeine Use Caffeine Use: Reports: Coffee Other Caffeine Use: couple cups a day - Recreational Drug Use Recreational Drug Use: No - Living Situation & Occupation Living situation: Reports: , Alone Occupation: Retired ED ROS GENERAL - Review of Systems Review Of Systems: Comprehensive ROS is negative, except as noted in HPI. ED EXAM, GENERAL - Physical Exam Exam: See Below Exam Limited By: No Limitations General Appearance: Alert, WD/WN, No Apparent Distress Respiratory/Chest: No Respiratory Distress, Lungs Clear, Normal Breath Sounds, No Accessory Muscle Use, Chest Non-Tender Cardiovascular: Normal Peripheral Pulses, Regular Rate, Rhythm, No Edema Peripheral Pulses: 2+: Radial (L), Radial (R) Extremities: Normal Inspection, Normal Capillary Refill Neurological: Alert, Oriented, Normal Cognition, No Motor/Sensory Deficits Psychiatric: Normal Affect, Normal Mood Skin Exam: Warm, Dry, Intact, Normal Color, No Rash Course - Vital Signs Last Recorded V/S: Last Vital Signs Temp 96.6 F L 07/13/21 20:51 Pulse 71 07/13/21 20:51 Resp 14 07/13/21 20:51 BP 119/69 07/13/21 20:51 Pulse Ox 94 L 07/13/21 20:51 - Orders/Labs/Meds Orders: Active Orders 24 hr Category Date Time Status Peripheral IV Care [RC] . DIRECTED Care 07/13/21 20:59 Active Chest 1V Frontal [CR] Stat Exams 07/13/21 20:59 Taken Sodium Chloride 0.9% [Saline Flush] Med 07/13/21 20:59 Active 10 ml FLUSH ASDIRECTED PRN Peripheral IV Insertion Adult [OM.PC] Stat Oth 07/13/21 20:59 Ordered Medication Orders Sodium Chloride (Sodium Chloride 0.9% 10 Ml Syringe) 10 ml FLUSH ASDIRECTED PRN PRN Reason: Keep Vein Open Last Admin: 07/13/21 21:12 Dose: 10 ml Documented by: NINFA Labs: Laboratory Tests 07/13/21 07/13/21 07/13/21 Range/Units 21:09 21:09 21:09 WBC 4.43 (4.23-9.07) K/mm3 RBC 4.42 L (4.63-6.08) M/mm3 Hgb 14.3 (13.7-17.5) gm/dl Hct 44.1 (40.1-51.0) % MCV 99.8 H (79.0-92.2) fl MCH 32.4 H (25.7-32.2) pg MCHC 32.4 (32.2-35.5) g/dl RDW Std Deviation 51.1 H (35.1-43.9) fL Plt Count 160 L (163-337) K/mm3 MPV 9.5 (9.4-12.3) fl Neut % (Auto) 55.3 (34.0-67.9) % Lymph % (Auto) 34.8 (21.8-53.1) % [place] % (Auto) 7.0 (5.3-12.2) % Eos % (Auto) 2.7 (0.8-7.0) Baso % (Auto) 0.2 (0.1-1.2) % Neut # (Auto) 2.45 (1.78-5.38) K/mm3 Lymph # (Auto) 1.54 (1.32-3.57) K/mm3 [place] # (Auto) 0.31 (0.30-0.82) K/mm3 Eos # (Auto) 0.12 (0.04-0.54) K/mm3 Baso # (Auto) 0.01 (0.01-0.08) K/mm3 PT 11.2 (9.7-12.0) SECONDS INR 1.05 APTT 30.0 (21.7-31.4) SECONDS Sodium 139 (136-145) mEq/L Potassium 4.2 (3.5-5.1) mEq/L Chloride 102 (98-107) mEq/L Carbon Dioxide 30 (21-32) mEq/L Anion Gap 11.2 (5-15) BUN 54 H (7-18) mg/dL Creatinine 2.5 H (0.7-1.3) mg/dL Est Cr Clr Drug Dosing TNP Estimated GFR (MDRD) 25 (>60) mL/min BUN/Creatinine Ratio 21.6 H (14-18) Glucose 110 H (70-99) mg/dL Calcium 9.6 (8.5-10.1) mg/dL Magnesium 2.1 (1.8-2.4) mg/dL Total Bilirubin 0.6 (0.2-1.0) mg/dL AST 27 (15-37) U/L ALT 35 (16-63) U/L Alkaline Phosphatase 56 (46-116) U/L Troponin I 0.032 (0.00-0.056) ng/mL NT-Pro-B Natriuret Pep (0-450) pg/mL Total Protein 7.7 (6.4-8.2) g/dl Albumin 3.7 (3.4-5.0) g/dl Globulin 4.0 gm/dL Albumin/Globulin Ratio 0.9 L (1-2) 07/13/21 Range/Units 21:09 WBC (4.23-9.07) K/mm3 RBC (4.63-6.08) M/mm3 Hgb (13.7-17.5) gm/dl Hct (40.1-51.0) % MCV (79.0-92.2) fl MCH (25.7-32.2) pg MCHC (32.2-35.5) g/dl RDW Std Deviation (35.1-43.9) fL Plt Count (163-337) K/mm3 MPV (9.4-12.3) fl Neut % (Auto) (34.0-67.9) % Lymph % (Auto) (21.8-53.1) % [place] % (Auto) (5.3-12.2) % Eos % (Auto) (0.8-7.0) Baso % (Auto) (0.1-1.2) % Neut # (Auto) (1.78-5.38) K/mm3 Lymph # (Auto) (1.32-3.57) K/mm3 [place] # (Auto) (0.30-0.82) K/mm3 Eos # (Auto) (0.04-0.54) K/mm3 Baso # (Auto) (0.01-0.08) K/mm3 PT (9.7-12.0) SECONDS INR APTT (21.7-31.4) SECONDS Sodium (136-145) mEq/L Potassium (3.5-5.1) mEq/L Chloride (98-107) mEq/L Carbon Dioxide (21-32) mEq/L Anion Gap (5-15) BUN (7-18) mg/dL Creatinine (0.7-1.3) mg/dL Est Cr Clr Drug Dosing Estimated GFR (MDRD) (>60) mL/min BUN/Creatinine Ratio (14-18) Glucose (70-99) mg/dL Calcium (8.5-10.1) mg/dL Magnesium (1.8-2.4) mg/dL Total Bilirubin (0.2-1.0) mg/dL AST (15-37) U/L ALT (16-63) U/L Alkaline Phosphatase (46-116) U/L Troponin I (0.00-0.056) ng/mL NT-Pro-B Natriuret Pep 4519 H (0-450) pg/mL Total Protein (6.4-8.2) g/dl Albumin (3.4-5.0) g/dl Globulin gm/dL Albumin/Globulin Ratio (1-2) Meds: Medications Generic Name Dose Route Start Last Admin Trade Name Freq PRN Reason Stop Dose Admin Sodium Chloride 10 ml 07/13/21 20:59 07/13/21 21:12 Sodium Chloride 0.9% 10 Ml Syringe FLUSH 10 ml ASDIRECTED PRN Administration Keep Vein Open - Re-Assessments/Exams Free Text/Narrative Re-Assessment/Exam: 07/13/21 21:13 Patient presents to the ER for the evaluation of his chest pain. Patient has not had any instrumentation to his pacemaker in some time, the site does not look infected by any means. We will go ahead and get a chest pain work-up, to include troponin, basic labs, chest x-ray, EKG. EKG done at the time of triage did show a ventricular paced rhythm that was 100% paced at 70 bpm. There is an underlying rhythm of atrial fibrillation noted as well. 07/13/21 22:04 The patient's labs have resulted, CBC is unremarkable, the patient's creatinine is 2.5, GFR is 25. This does seem to be baseline for him, as compared to labs done in May. The patient's BNP is quite elevated at over 4500, and troponin is within normal limits but 0.032, these values were discussed with Dr. Barr, he believes this patient would be safe to follow-up with his pets and pet supplies salesperson, sometime in the near future and the patient should call them tomorrow to schedule an appointment for ongoing management. He would recommend not making any changes to Lasix or other medications at this time, as the patient's kidney function would likely not handle this well. And he is already on max dose for Lasix purposes. 07/13/21 22:37 He did get a report back from [place], after we interrogated the patient's device. It does appear to be functioning as programmed. Patient was noted to be in an atrial arrhythmia, for roughly 1 year now. Departure - Departure Time of Disposition: 22:06 Disposition: Home, Self-Care 01 Condition: Good Clinical Impression: Chest pain Qualifiers: Chest pain type: unspecified Qualified Code(s): R07.9 - Chest pain, unspecified Instructions: Nonspecific Chest Pain, Adult, [id number] Referrals: Baljeet Saavedra MD [Primary Care Provider] - Nacho Barker MD [Ordering Only Provider] - 1 Week Forms: ED Department Discharge Additional Instructions: You were evaluated in the ER today for your chest pain. EKG did demonstrate that your pacemaker was functioning at capacity. Laboratory evaluation did demonstrate that you have pretty significant heart failure, but you are already on maximum dosage for most your medications for tonight's purposes. No further work-up in the ER will be carried out at this time. Your troponin level is within normal limits, and it does not appear that you are suffering from any sort of heart attack for tonight's purposes. Highly and strongly recommend you get in contact with your pets and pet supplies salesperson's office tomorrow, for follow-up with him, as soon as possible, hopefully within the next week for ongoing management. If you cannot get in with your pets and pet supplies salesperson, you should get seen by your regular provider, Dr. Saavedra for reevaluation and to make sure that symptoms are getting better as expected. Do not hesitate to return to the ER however if symptoms would change or worsen. Sepsis Event Note (ED) - Evaluation Sepsis Screening Result: No Definite Risk - Focused Exam Vital Signs: Vital Signs Temp Pulse Resp BP Pulse Ox 07/13/21 20:51 96.6 F L 71 14 119/69 94 L - My Orders Last 24 Hours: My Active Orders 07/13/21 20:59 Peripheral IV Care [RC] . DIRECTED Chest 1V Frontal [CR] Stat Sodium Chloride 0.9% [Saline Flush] 10 ml FLUSH ASDIRECTED PRN Peripheral IV Insertion Adult [OM.PC] Stat - Assessment/Plan Last 24 Hours: My Active Orders 07/13/21 20:59 Peripheral IV Care [RC] . DIRECTED Chest 1V Frontal [CR] Stat Sodium Chloride 0.9% [Saline Flush] 10 ml FLUSH ASDIRECTED PRN Peripheral IV Insertion Adult [OM.PC] Stat
--- NOTE | 2021-07-14 07:18 | CR ---
Chest: Frontal view of the chest was obtained. Comparison: Prior chest x-ray of 12/31/17. Prior CABG is noted with previous sternotomy. Heart is felt to be slightly enlarged. AICD is present. Right shoulder prosthesis is noted. Degenerative change is noted within the left shoulder. Lungs are clear with no acute parenchymal change. Impression: 1. Stable findings as noted above. 2. Nothing acute is appreciated on frontal chest x-ray. Diagnostic code #2
== END 2021-07-13 22:42 | disposition home or self-care (01) ==
LOC: JD.ED 20:39
DX: R07.9 Chest pain, unspecified (principal); I25.10 Atherosclerotic heart disease of native coronary artery without angina pectoris; I11.0 Hypertensive heart disease with heart failure; I50.9 Heart failure, unspecified; E78.00 Pure hypercholesterolemia, unspecified; I25.2 Old myocardial infarction; N40.0 Benign prostatic hyperplasia without lower urinary tract symptoms; M10.9 Gout, unspecified; Z79.82 Long term (current) use of aspirin; Z79.899 Other long term (current) drug therapy
CPT/HCPCS: 36415; 71045; 71045-26; 80053; 83735; 83880; 84484; 85025; 85610; 85730; 93005; 93010; 99283; 99285-25

== ENCOUNTER 2021-09-16 04:38 | Emergency (ER) | payer MEDICARE, BC ==
--- NOTE | 2021-09-16 05:09 | EDM.PDOC ---
<Lalit Chatman - Last Filed: 09/16/21 13:10> ED HPI GENERAL MEDICAL PROBLEM - General Chief Complaint: Chest Pain Stated Complaint: [facility] Time Seen by Provider: 09/16/21 05:07 - Related Data Allergies Allergy/AdvReac Type Severity Reaction Status Date / Time No Known Allergies Allergy Verified 07/13/21 20:56 Home Meds: Home Meds Furosemide [Lasix] 80 mg PO DAILY 07/12/14 [History] Simvastatin [Zocor] 40 mg PO BEDTIME 07/12/14 [History] Tamsulosin [Flomax] 0.4 mg PO BID 07/12/14 [History] allopurinoL [Zyloprim] 200 mg PO DAILY 07/12/14 [History] Finasteride 5 mg PO BEDTIME 08/03/16 [History] Nitroglycerin [Nitrostat] 0.4 mg SL Q5M PRN 08/03/16 [History] Sacubitril/Valsartan [Entresto 24 mg-26 mg Tablet] 1 tab PO BID 06/15/17 [History] Aspirin [Lo-Dose Aspirin EC] 81 mg PO DAILY 10/28/17 [History] Cyanocobalamin (Vitamin B-12) [B-12] 1,000 mcg PO DAILY 10/28/17 [History] Glucosamine [Glucosamine Sulfate] 500 mg PO BEDTIME 10/28/17 [History] Multivitamin [Multivitamins] 1 each PO DAILY 10/28/17 [History] Vit A/Vit C/Vit E/Zinc/Copper [Preservision] 1 each PO DAILY 10/28/17 [History] Furosemide [Lasix] 40 mg PO BEDTIME 11/11/17 [History] Amiodarone [Cordarone] 200 mg PO BID #60 tablet 11/19/17 [Rx] Docusate Sodium [Colace] 100 mg PO BID #60 cap 11/19/17 [Rx] Ranolazine [Ranexa] 500 mg PO BID #60 tab.er.12h 11/19/17 [Rx] Ferrous Gluconate [Fergon] 240 mg PO BEDTIME 12/31/17 [History] [place]-3S/DHA/Epa/Fish Oil [Fish Oil [place]-3 Softgel] 1 cap PO DAILY 12/31/17 [History] Course - Re-Assessments/Exams Free Text/Narrative Re-Assessment/Exam: 09/16/21 13:[address] Christopher. The repeat troponin was slightly elevated at 0.057. Normal is 0.056. I did a 6 hours troponin and it was normal at 0.54. He had no pain the whole time he was here. I feel it is safe to discharge him home. Departure - Departure Time of Disposition: 13:15 Disposition: Home, Self-Care 01 Condition: Good Clinical Impression: Atypical chest pain Instructions: Nonspecific Chest Pain, Adult, [id number] Referrals: Baljeet Saavedra MD [Primary Care Provider] - 1 Week Forms: ED Department Discharge Additional Instructions: Take your medications as prescribed. Follow up with Dr Saavedra within a week. Please return if you are worse. <Carmelo Christopher - Last Filed: 09/17/21 20:54> ED HPI GENERAL MEDICAL PROBLEM - General Source of Information: Reports: Patient History Limitations: Reports: No Limitations - History of Present Illness INITIAL COMMENTS - FREE TEXT/NARRATIVE: Patient is 86-year-old male with a past medical history of CHF, hypertension with a pacemaker presenting with a chief complaint of chest pain. Patient reports the chest pain started when he woke up around 3 AM. Patient states he had his head tilted to one side and felt a pinch in the nerve in his neck. He says he thinks is because of the way he is laying. He subsequently developed chest pain. Chest pain was substernal nonradiating. Patient had associated shortness of breath. Otherwise, denies nausea, vomiting, diaphoresis. Patient took 3 total sublingual nitroglycerin with improvement of symptoms. Treatments TEACHER OF THE EMOTIONALLY DISTURBED: Reports: Nitroglycerin Past Medical History HEENT History: Reports: Hard of Hearing Cardiovascular History: Reports: Automatic Implantable Cardioverter Defibrillators, CAD, Heart Failure, High Cholesterol, Hypertension, [place], Pacemaker Other Cardiovascular History: quad bypass 2002 Respiratory History: Reports: Sleep Apnea Other Respiratory History: does not wear a CPAP Gastrointestinal History: Reports: Other (See Below) Other Gastrointestinal History: Hx of hernias x2 - both repaired surgically Genitourinary History: Reports: BPH, Renal Calculus Musculoskeletal History: Reports: Gout - Infectious Disease History Infectious Disease History: Reports: Chicken Pox - Past Surgical History HEENT Surgical History: Reports: Cataract Surgery, Oral Surgery, Tonsillectomy Other HEENT Surgeries/Procedures: Patient states "I had a partial tonsillectomy" Cardiovascular Surgical History: Reports: Coronary Artery Bypass, Pacer, Other (See Below) Other Cardiovascular Surgeries/Procedures: 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 GI Surgical History: Reports: Appendectomy, Cholecystectomy, Hernia, Inguinal Musculoskeletal Surgical History: Reports: Knee Replacement, Shoulder Surgery Social & Family History - Family History Family Medical History: No Pertinent Family History Cardiac: Reports: [place] Oncologic: Reports: Breast - Tobacco Use Tobacco Use Status *Q: Never Tobacco User - Caffeine Use Caffeine Use: Reports: Coffee Other Caffeine Use: couple cups a day - Recreational Drug Use Recreational Drug Use: No - Living Situation & Occupation Living situation: Reports: , Alone Occupation: Retired ED ROS GENERAL - Review of Systems Review Of Systems: See Below Free Text/Narrative/Comment: In addition to that documented in the HPI above, the additional ROS was obtained: Constitutional: Denies fevers or chills Eyes: Denies vision changes ENMT: Denies sore throat CV: Per HPI Resp: Denies SOB GI: Denies vomiting or diarrhea : Denies painful urination MSK: Denies recent trauma Skin: Denies new rashes Neuro: Denies new numbness or tingling or weakness Endocrine: Denies unexpected weight loss Heme: Denies bleeding disorders ED EXAM, GENERAL - Physical Exam Exam: See Below Free Text/Narrative:: I have reviewed the triage vital signs Const: Well nourished, well developed, appears stated age Eyes: Pupils Equal and reactive to light bilaterally, no conjunctival injection HENT: No signs of trauma or swelling, Neck supple without meningismus CV: Regular Rate Rhythm, Warm, well-perfused extremities RESP: Unlabored respiratory effort GI: soft, non-tender, non-distended, no masses MSK: No gross deformities appreciated Skin: Warm, dry. No rashes Neuro: Alert, chain tender II-XII grossly intact. Sensation and motor function of extremities grossly intact. Psych: Appropriate mood and affect. #1 Interpretation EKG Date: 09/16/21 Time: 04:43 Rhythm: NSR Rate (Beats/Min): 61 [place]: Normal P-Wave: Present QRS: Wide ST-T: Other QT: Normal Comparison: No Change EKG Interpretation Comments: abnormal ekg, ventricular paced rhythm Course - Vital Signs Last Recorded V/S: Last Vital Signs Temp 35.9 C L 11/12/21 04:50 Pulse 64 09/16/21 08:02 Resp 18 09/16/21 08:02 BP 99/69 09/16/21 08:02 Pulse Ox 97 09/16/21 08:02 - Orders/Labs/Meds Labs: Laboratory Tests 09/16/21 09/16/21 09/16/21 Range/Units 04:40 04:40 04:40 WBC 5.45 (4.23-9.07) K/mm3 RBC 4.19 L (4.63-6.08) M/mm3 Hgb 13.2 L (13.7-17.5) gm/dl Hct 41.5 (40.1-51.0) % MCV 99.0 H (79.0-92.2) fl MCH 31.5 (25.7-32.2) pg MCHC 31.8 L (32.2-35.5) g/dl RDW Std Deviation 50.5 H (35.1-43.9) fL Plt Count 181 (163-337) K/mm3 MPV 9.4 (9.4-12.3) fl Neut % (Auto) 59.4 (34.0-67.9) % Lymph % (Auto) 29.0 (21.8-53.1) % [place] % (Auto) 7.9 (5.3-12.2) % Eos % (Auto) 2.9 (0.8-7.0) Baso % (Auto) 0.4 (0.1-1.2) % Neut # (Auto) 3.24 (1.78-5.38) K/mm3 Lymph # (Auto) 1.58 (1.32-3.57) K/mm3 [place] # (Auto) 0.43 (0.30-0.82) K/mm3 Eos # (Auto) 0.16 (0.04-0.54) K/mm3 Baso # (Auto) 0.02 (0.01-0.08) K/mm3 PT 11.0 (9.7-12.0) SECONDS INR 0.99 Sodium 142 (136-145) mEq/L Potassium 3.7 (3.5-5.1) mEq/L Chloride 102 (98-107) mEq/L Carbon Dioxide 29 (21-32) mEq/L Anion Gap 14.7 (5-15) BUN 48 H (7-18) mg/dL Creatinine 2.1 H (0.7-1.3) mg/dL Est Cr Clr Drug Dosing 28.81 mL/min Estimated GFR (MDRD) 30 (>60) mL/min BUN/Creatinine Ratio 22.9 H (14-18) Glucose 107 H (70-99) mg/dL Calcium 9.8 (8.5-10.1) mg/dL Total Bilirubin 0.9 (0.2-1.0) mg/dL AST 16 (15-37) U/L ALT 16 (16-63) U/L Alkaline Phosphatase 53 (46-116) U/L Troponin I 0.046 (0.00-0.056) ng/mL Total Protein 7.3 (6.4-8.2) g/dl Albumin 3.3 L (3.4-5.0) g/dl Globulin 4.0 gm/dL Albumin/Globulin Ratio 0.8 L (1-2) 09/16/21 09/16/21 Range/Units 07:03 11:00 WBC (4.23-9.07) K/mm3 RBC (4.63-6.08) M/mm3 Hgb (13.7-17.5) gm/dl Hct (40.1-51.0) % MCV (79.0-92.2) fl MCH (25.7-32.2) pg MCHC (32.2-35.5) g/dl RDW Std Deviation (35.1-43.9) fL Plt Count (163-337) K/mm3 MPV (9.4-12.3) fl Neut % (Auto) (34.0-67.9) % Lymph % (Auto) (21.8-53.1) % [place] % (Auto) (5.3-12.2) % Eos % (Auto) (0.8-7.0) Baso % (Auto) (0.1-1.2) % Neut # (Auto) (1.78-5.38) K/mm3 Lymph # (Auto) (1.32-3.57) K/mm3 [place] # (Auto) (0.30-0.82) K/mm3 Eos # (Auto) (0.04-0.54) K/mm3 Baso # (Auto) (0.01-0.08) K/mm3 PT (9.7-12.0) SECONDS INR Sodium (136-145) mEq/L Potassium (3.5-5.1) mEq/L Chloride (98-107) mEq/L Carbon Dioxide (21-32) mEq/L Anion Gap (5-15) BUN (7-18) mg/dL Creatinine (0.7-1.3) mg/dL Est Cr Clr Drug Dosing mL/min Estimated GFR (MDRD) (>60) mL/min BUN/Creatinine Ratio (14-18) Glucose (70-99) mg/dL Calcium (8.5-10.1) mg/dL Total Bilirubin (0.2-1.0) mg/dL AST (15-37) U/L ALT (16-63) U/L Alkaline Phosphatase (46-116) U/L Troponin I 0.057 H* 0.054 (0.00-0.056) ng/mL Total Protein (6.4-8.2) g/dl Albumin (3.4-5.0) g/dl Globulin gm/dL Albumin/Globulin Ratio (1-2) Meds: Medications Discontinued Medications Generic Name Dose Route Start Last Admin Trade Name Freq PRN Reason Stop Dose Admin Aspirin 324 mg 09/16/21 10:47 09/16/21 13:02 Aspirin 81 Mg Tab.Chew PO 09/16/21 10:48 324 mg ONETIME ONE Administration Sepsis Event Note (ED) - Evaluation Sepsis Screening Result: No Definite Risk - Assessment/Plan Assessment:: Patient is 86-year-old male presented to the emergency room with complaint of chest pain. EKG demonstrates evidence of ventricular paced rhythm. Initial troponin within normal limits. Given onset of symptoms and concern about ACS secondary panel will be ordered. Patient will be signed out to Dr. Chatman for further cardiac evaluation and monitoring. Extremely low suspicion of pulmonary embolism, aortic dissection, pneumonia given his work-up thus far.
--- NOTE | 2021-09-16 06:09 | CR ---
Chest: Portable view of the chest was obtained. Comparison: Prior chest x-ray of 07/13/21. Heart is enlarged. Tortuous thoracic aorta is seen. Lungs show no acute parenchymal change. Prior sternotomy for CABG is noted. AICD is present. No acute bony abnormality is seen. Impression: 1. Cardiomegaly with prior sternotomy and CABG. AICD is noted. 2. Nothing acute is otherwise seen on portable chest x-ray. Diagnostic code #2
[2021-09-16 08:03] VITALS: BP 99/69; PULSE 64
[2021-09-16] MEDS ORDERED: Aspirin 81 MG Tab.Chew PO ONE (10:47)
== END 2021-09-16 13:41 | disposition home or self-care (01) ==
LOC: JD.ED 04:38
DX: R07.89 Other chest pain (principal); I25.10 Atherosclerotic heart disease of native coronary artery without angina pectoris; I11.0 Hypertensive heart disease with heart failure; I50.9 Heart failure, unspecified; E78.00 Pure hypercholesterolemia, unspecified; I25.2 Old myocardial infarction; M10.9 Gout, unspecified; R79.89 Other specified abnormal findings of blood chemistry; R94.31 Abnormal electrocardiogram [ECG] [EKG]; Z79.82 Long term (current) use of aspirin; Z79.899 Other long term (current) drug therapy
CPT/HCPCS: 36415; 71045; 80053; 84484; 85025; 85610; 93005; 99285; A9270

== ENCOUNTER 2022-06-20 11:24 | Emergency (ER) | payer MEDICARE, BC ==
[2022-06-20] MEDS ORDERED: Sodium Chloride 0.9% 10 ML Syringe FLUSH PRN (11:33)
[2022-06-20 13:05] LABS: ESTIMATED GFR 25 mL/min (>60)
[2022-06-20 14:17] VITALS: BP 108/71; PULSE 66
== END 2022-06-20 14:45 | disposition home or self-care (01) ==
LOC: JD.ED 11:24
DX: R07.89 Other chest pain (principal); M25.512 Pain in left shoulder; R79.0 Abnormal level of blood mineral; I25.2 Old myocardial infarction; M10.9 Gout, unspecified; I11.0 Hypertensive heart disease with heart failure; I50.9 Heart failure, unspecified; E78.00 Pure hypercholesterolemia, unspecified; Z95.0 Presence of cardiac pacemaker; Z79.82 Long term (current) use of aspirin; Z79.899 Other long term (current) drug therapy
CPT/HCPCS: 36415; 71045; 80053; 83735; 83880; 84484; 85025; 85610; 85730; 93005; 99285; J3490; 93010; 99284

== ENCOUNTER 2022-09-28 19:54 | Emergency (ER) | payer MEDICARE, BC ==
[2022-09-28 20:04] VITALS: BP 119/82; PULSE 63
[2022-09-28] MEDS ORDERED: Sodium Chloride 0.9% 10 ML Syringe FLUSH PRN (20:04)
== END 2022-09-28 22:55 | disposition home or self-care (01) ==
LOC: JD.ED 19:54
DX: R07.9 Chest pain, unspecified (principal); N28.9 Disorder of kidney and ureter, unspecified; I11.0 Hypertensive heart disease with heart failure; I50.9 Heart failure, unspecified; I25.10 Atherosclerotic heart disease of native coronary artery without angina pectoris; E78.00 Pure hypercholesterolemia, unspecified; Z79.899 Other long term (current) drug therapy; Z79.82 Long term (current) use of aspirin; Z90.49 Acquired absence of other specified parts of digestive tract
CPT/HCPCS: 36415; 71045; 80053; 83735; 84484; 85025; 85379; 85610; 93005; 99285; J3490

== ENCOUNTER 2022-10-30 14:58 | Emergency (ER) | payer MEDICARE, BC ==
[2022-10-30 16:24] LABS: ESTIMATED GFR 17 mL/min (>60)
[2022-10-30] MEDS ORDERED: Furosemide 40 MG/4 ML VIAL IVPUSH ONE (19:07)
[2022-10-30 19:27] VITALS: BP 114/75; PULSE 60
== END 2022-10-30 19:26 ==
LOC: JD.ED 14:58
DX: I13.2 Hypertensive heart and chronic kidney disease with heart failure and with stage 5 chronic kidney disease, or end stage renal disease (principal); N18.5 Chronic kidney disease, stage 5; I50.30 Unspecified diastolic (congestive) heart failure; I25.10 Atherosclerotic heart disease of native coronary artery without angina pectoris; I25.2 Old myocardial infarction; E78.00 Pure hypercholesterolemia, unspecified; N40.0 Benign prostatic hyperplasia without lower urinary tract symptoms; Z79.82 Long term (current) use of aspirin; Z79.899 Other long term (current) drug therapy
CPT/HCPCS: 36415; 71045; 71045-26; 80053; 82553; 83735; 83880; 84484; 84550; 85025; 85610; 85730; 86140; 93005; 99285

== ENCOUNTER 2024-05-28 17:44 | Emergency (ER) | payer MEDICARE, BC ==
[2024-05-28 20:04] VITALS: BP 135/85; PULSE 88
== END 2024-05-28 20:06 | disposition home or self-care (01) ==
LOC: JD.ED 17:44
DX: S61.215A Laceration without foreign body of left ring finger without damage to nail, initial encounter (principal); S00.01XA Abrasion of scalp, initial encounter; I11.0 Hypertensive heart disease with heart failure; I50.9 Heart failure, unspecified; I25.10 Atherosclerotic heart disease of native coronary artery without angina pectoris; Z79.899 Other long term (current) drug therapy; Z88.5 Allergy status to narcotic agent; W19.XXXA Unspecified fall, initial encounter
CPT/HCPCS: 12001; 70450; 70450-26; 82947; 93005; 99284